=== PATIENT | female | born 1940 | race Caucasian/White ===

== ENCOUNTER → 2020-09-02 09:09 | Outpatient (BNVA) | payer MEDICARE, SELFPAY | PROVIDERS: PCP Internal Medicine; Referring Provider Internal Medicine; Visit Provider Surgery Vascular Surgery | DX: I83.12 Varicose veins of left lower extremity with inflammation (principal) | CPT/HCPCS: 36482 ==

== ENCOUNTER 2020-10-27 08:20 | Outpatient (REF) | payer MEDICARE, SELFPAY | END 2020-10-27 08:21 | disposition home or self-care (01) | LOC: HO.LAB 08:20 | PROVIDERS: PCP Internal Medicine; Visit Provider Internal Medicine | DX: N39.0 Urinary tract infection, site not specified (principal) | CPT/HCPCS: 87086 ==

== ENCOUNTER 2020-11-22 15:57 | Outpatient (REF) | payer MEDICARE, SELFPAY | END 2020-11-22 15:58 | disposition home or self-care (01) | LOC: HO.LAB 15:57 | PROVIDERS: Visit Provider Internal Medicine | DX: Z20.828 Contact with and (suspected) exposure to other viral communicable diseases (principal) | CPT/HCPCS: 36415; C9803; U0003 ==

== ENCOUNTER 2021-01-27 08:20 | Emergency (ER) | payer MEDICARE, SELFPAY ==
[2021-01-27] VITALS (15 sets, daily range): BP systolic 78–122; BP diastolic 38–68; PULSE 72–888; RESP 14–20; TEMP 37–37.7; O2SAT 95–98; BMI 33.3
--- NOTE | ~2021-01-27 | CT_ITS ---
EXAMINATION: CT BRAIN WITHOUT CONTRAST. CHEST X-RAY. CLINICAL INFORMATION: Headache. Cough. COMPARISON: CT brain 01/21/2020 TECHNIQUE: 5 mm thin axial and reformatted 2 mm thin sagittal and coronal images of brain were obtained. DLP 606. Chest one view. FINDINGS: Brain: There is no acute intra-axial, extra-axial bleed, masses or collection seen. There is no acute infarction in evolution. There is 5 mm hypodensity in the left anterior limb left internal capsule likely a small lacunar infarction. The lateral ventricles are symmetrical but mildly prominent. There is mild periarticular hypodensity in both cerebral hemispheres without mass effect. There is mild dolichoectasia of the basilar artery Bone windows reveal no calvarial abnormality. There is no scalp soft tissue abnormality. Bilateral paranasal sinuses and mastoid air cells are well-aerated. Chest: The lungs are well-expanded and clear acute process. The heart size and pulmonary vascularity is normal. No gross bony abnormality seen. CT/CT head/brain wo con IMPRESSION: No acute intracranial process seen. Small lacunar infarct left internal capsule. Mild cerebral volume loss with chronic small vessel microangiopathy Unremarkable chest exam.
--- NOTE | 2021-01-27 09:05 | PC.NURSE ---
pt brought in by ems from assisted living facility with c/o headache, lightheadedness, n/v, and body chills. pt is alert and oriented x3, lung sounds clear bilaterally in all hayes, heart sounds and rate normal, bowel sounds hypoactive x4. pt states that she started developing a headache in the back of her head last night around 1130 which progressed to chills and generalized body aches. pt also states she took her temperature at 3am and it was 101. pt current temp is 99.8. pt stated she always has a low-grade headache in the back of her head which she states may be related to a series of mini-stroked she had in the past, however this time around the headache pain was worse and radiating to the front of her head. current pain level is 9/10. pt changed into hospital gown. no evidence of skin breakdown anywhere on body. skin is pink warm and dry. md at bedside during assessment. pt aware of plan of care
--- NOTE | 2021-01-27 09:16 | PC.NURSE ---
daughter Kusum Matos called to get an update on Yoselin. Yoselin gave permission for this nurse to update her. Kusum was told why Yoselin was brought in and current plan of care. Ksuum has no other questions or concerns at this time.
--- NOTE | 2021-01-27 09:21 | ED.HA ---
HPI - Headache General Chief Complaint: Headache Stated Complaint: n/v Time Seen by Provider: 01/27/21 08:48 History of Present Illness HPI Narrative: Patient is a 80-year-old female presents today with having headaches. The headache is in the front and back of her head. Associated with nausea. No coughing or congestion or upper respiratory symptoms. No diaphoresis. No pain on urination. No frequency. No chest pain. No neck pain. No focal weakness. Patient from home. History of TIAs in the past. Related Data Previous Rx's Medication Instructions Recorded sulfamethoxazole 800 1 tab PO BID #10 tab 09/09/20 mg-trimethoprim 160 mg tablet sulfamethoxazole 800 1 tab PO BID #10 tab 09/15/20 mg-trimethoprim 160 mg tablet naproxen 500 mg tablet 500 mg PO Q12H PRN #60 tab 12/28/20 tizanidine 2 mg tablet 2 mg PO BEDTIME #90 tab 12/28/20 insulin glargine 100 unit/mL (3 12 unit SUBCUT QAM #15 ml 01/19/21 mL) subcutaneous pen Allergies Allergy/AdvReac Type Severity Reaction Status Date / Time levofloxacin [From LEVAQUIN] Allergy Intermediate RASH Verified 08/26/20 15:05 eszopiclone [From LUNESTA] Allergy Mild HALLUCINATI Verified 09/09/20 06:36 ONS zolpidem [Ambien] Allergy Unknown sleep Verified 09/09/20 06:36 walking meperidine [Meperidine] AdvReac Intermediate hallucinati Unverified 08/04/20 14:33 ons pregabalin [From LYRICA] AdvReac Unknown AGITATION Unverified 08/04/20 14:33 trazodone [TRAZODONE] AdvReac Unknown AGITATION Unverified 08/04/20 14:33 Review of Systems Review of Systems: Constitutional: No Weight loss, positive aches, No Chills, No Night Sweats, No Fatigue, No Malaise ENT/Mouth: No Hearing loss, No Ear Pain, No Nasal Congestion, No Sinus Pain, No Hoarseness, No sore throat, No Rhinorrhea, No Swallowing Difficulty Eyes: No Eye Pain, No Swelling, No Redness, No Foreign Body, No Discharge, No Vision Changes Cardiovascular: No Chest Pain, No SOB, No Dyspnea on Exertion, No Orthopnea, No Edema, No Palpitations Respiratory: No Cough, No Sputum, No Wheezing, No Smoke Exposure, No Dyspnea Gastrointestinal: No Nausea, No Vomiting, No Diarrhea, No Constipation, No abdominal Pain, No Hematochezia, No Melena Genitourinary: no irregular bleeding, No Dysuria, No Urinary Frequency, No Hematuria, No Urinary Incontinence, No Urgency, No Flank Pain, No Urinary Flow Changes, No Hesitancy Musculoskeletal: No joint pain, No Myalgias, No Joint Swelling Skin: No Skin Lesions, No rash Neuro: No Weakness, No Numbness, No Paresthesias, No Loss of Consciousness, No Dizziness, positive Headache Psych: No Anxiety/Panic, No Depression, No SI/HI/AH/VH, No Social Issues, Heme/Lymph: No Bruising, No Bleeding,No Lymphadenopathy Endocrine: No Polyuria, No Polydipsia, No Temperature Intolerance Yes all other systems are reviewed and are negative [facility] Past Medical History Medical History (Updated 01/27/21 @ 12:03 by Morenita Cabrera MD) Congestive heart failure Pneumonia Pulmonary embolism Type 2 diabetes mellitus with hyperglycemia Surgical History (Updated 09/14/20 @ 08:57 by Eve Cash MA) H/O prior ablation treatment History of cervical spinal surgery History of hysterectomy No pertinent past surgical history Family History Family History Father Diabetes CVD (cardiovascular disease) Mother No problems noted. Social History Social History (Updated 09/14/20 @ 08:48 by Eve Cash MA) Alcohol intake: never Smoking Status: Former smoker Smoked in Last 30 Days: No Use of substances other than those prescribed or required for medical reasons: No Advance Directives: Yes Advance Directives on File: Yes Advance Directives Date on File: 01/27/21 Physical Exam Vital Signs: Vital Signs: Last Vital Signs Temp 99.8 F 01/27/21 11:31 Pulse 91 01/27/21 11:31 Resp 20 01/27/21 11:31 BP 98/52 L 01/27/21 11:31 Pulse Ox 95 01/27/21 11:31 Body Mass Index 33.3 MDM - Headache MDM Narrative Medical decision making narrative: Patient neurologically intact. No focal weakness. Headache history. Claims this headache is worse. CT scan of the head was negative for any acute evidence of bleeding. Patient's symptoms started this morning. Approximately 6 hours. Patient's sed rate was 38. No evidence for temporal arteritis. Patient was given treatment for migraine headache including Compazine. Symptom improved dramatically. Headaches are gone now. Accord risk of meningitis low. Accord risk of bleeding low. Will discharge patient home. Currently in stable condition. Differential Diagnosis Differential diagnosis: Likely migraine, tension headache, subarachnoid hemorrhage, headache, meningitis, sinusitis and postconcussion syndrome Medical Records Attestation: I reviewed the patient's medical records. Lab Data Attestation: I reviewed the patient's lab results. Result diagrams: 01/27/21 09:46 01/27/21 09:46 Labs: Lab Results 01/27/21 01/27/21 01/27/21 Range/Units 09:46 09:46 09:46 WBC 12.4 H (4.8-10.8) X10*3/uL RBC 4.01 L (4.20-5.50) X10*6/uL Hgb 10.9 L (12.0-16.0) g/dl Hct 34.7 L (37-47) % MCV 86.5 (80-98) fL MCH 27.2 (27.0-33.0) pg MCHC 31.4 (31.0-35.0) g/dl RDW 14.6 (11.0-16.0) % Plt Count 237 (160-400) X10*3/uL MPV 9.7 (9.4-12.3) fL Immature Gran % (Auto) 0.5 H (0.0-0.4) % Neut % (Auto) 94.4 H (45-73) % Lymph % (Auto) 3.3 L (20-40) % Da[place]hin % (Auto) 1.5 L (2-11) % Eos % (Auto) 0.1 (0-4) % Baso % (Auto) 0.2 (0-2) % Lymph # (Auto) 0.4 L (1.2-4.9) X10*3/uL [place]hin # (Auto) 0.2 (0.1-1.2) X10*3/uL Eos # (Auto) 0.0 (0.0-0.4) X10*3/uL Baso # (Auto) 0.0 (0.0-0.2) X10*3/uL Abs Immat Gran (auto) 0.06 H (0.00-0.03) X10*3/uL Absolute Neuts (auto) 11.7 H (2.0-8.3) X10*3/uL Absolute Nucleated RBC 0.000 (0.0-0.012) X10*3/uL Nucleated RBC % (auto) 0.0 (0.0-0.2) /100WBC Smear Tech's Comments Not Reportable ESR 38 H (0-20) MM/HR PT 13.7 H (10.8-13.0) SEC INR 1.2 H (0.9-1.1) Sodium (135-145) mmol/L Potassium (3.3-5.1) mmol/L Chloride (96-108) mmol/L Carbon Dioxide (22-29) mmol/L Anion Gap (12-20) BUN (9-16) mg/dL Creatinine (0.5-1.4) mg/dL Estim Creat Clear Calc Estimated GFR Random Glucose (60-115) mg/dL Calcium (8.4-10.2) mg/dL C-Reactive Protein (< or = 0.50) mg/dL Coronavirus (PCR) (Negative) Influenza Type A (PCR) (Negative) Influenza Type B (PCR) (Negative) RSV RNA Qual (PCR) (Negative) 01/27/21 01/27/21 Range/Units 09:46 09:46 WBC (4.8-10.8) X10*3/uL RBC (4.20-5.50) X10*6/uL Hgb (12.0-16.0) g/dl Hct (37-47) % MCV (80-98) fL MCH (27.0-33.0) pg MCHC (31.0-35.0) g/dl RDW (11.0-16.0) % Plt Count (160-400) X10*3/uL MPV (9.4-12.3) fL Immature Gran % (Auto) (0.0-0.4) % Neut % (Auto) (45-73) % Lymph % (Auto) (20-40) % Dauphin % (Auto) (2-11) % Eos % (Auto) (0-4) % Baso % (Auto) (0-2) % Lymph # (Auto) (1.2-4.9) X10*3/uL [place]hin # (Auto) (0.1-1.2) X10*3/uL Eos # (Auto) (0.0-0.4) X10*3/uL Baso # (Auto) (0.0-0.2) X10*3/uL Abs Immat Gran (auto) (0.00-0.03) X10*3/uL Absolute Neuts (auto) (2.0-8.3) X10*3/uL Absolute Nucleated RBC (0.0-0.012) X10*3/uL Nucleated RBC % (auto) (0.0-0.2) /100WBC Smear Tech's Comments ESR (0-20) MM/HR PT (10.8-13.0) SEC INR (0.9-1.1) Sodium 139 (135-145) mmol/L Potassium 4.3 (3.3-5.1) mmol/L Chloride 104 (96-108) mmol/L Carbon Dioxide 27 (22-29) mmol/L Anion Gap 12 (12-20) BUN 19 H (9-16) mg/dL Creatinine 1.10 (0.5-1.4) mg/dL Estim Creat Clear Calc 34.9 Estimated GFR 48 Random Glucose 140 H (60-115) mg/dL Calcium 8.5 (8.4-10.2) mg/dL C-Reactive Protein 2.09 H (< or = 0.50) mg/dL Coronavirus (PCR) NEGATIVE (Negative) Influenza Type A (PCR) NEGATIVE (Negative) Influenza Type B (PCR) NEGATIVE (Negative) RSV RNA Qual (PCR) NEGATIVE (Negative) Discharge Plan Discharge Clinical Impression: Headache Patient Disposition: Home, Self-Care Instructions: Acute Headache (ED) Prescriptions: No Action sulfamethoxazole-trimethoprim [Bactrim DS] 800-160 mg tablet 1 tab PO BID Qty: 10 RF: 0 sulfamethoxazole-trimethoprim [Bactrim DS] 800-160 mg tablet 1 tab PO BID Qty: 10 RF: 0 naproxen 500 mg tablet 500 mg PO Q12H PRN (Reason: pain) Qty: 60 RF: 8 tizanidine 2 mg tablet 2 mg PO BEDTIME Qty: 90 RF: 8 Lantus Solostar U-100 Insulin 100 unit/mL (3 mL) insulin pen 12 unit subcut QAM Qty: 15 RF: 8 Referrals: Jin Arshad MD [Primary Care Provider] - 2 days
[2021-01-27 10:00] LABS: INTERNATIONAL NORM RATIO 1.2 (0.9-1.1); Prothrombin Time 13.7 SEC (10.8-13.0)
[2021-01-27 10:03] LABS: Basophils Percent Auto 0.2 % (0-2); Eosinophils Percent Auto 0.1 % (0-4); Hematocrit 34.7 % (37-47); Hemoglobin 10.9 g/dl (12.0-16.0); Imm Gran Abs Auto 0.06 X10*3/uL (0.00-0.03); Imm Gran Pct Auto 0.5 % (0.0-0.4); Lymphocytes Absolute Auto 0.4 X10*3/uL (1.2-4.9); Lymphocytes Percent Auto 3.3 % (20-40); MANUAL DIFF FLAG SCAN; Mean Corpuscular HGB Conc 31.4 g/dl (31.0-35.0); Mean Corpuscular Hemoglobin 27.2 pg (27.0-33.0); Mean Corpuscular Volume 86.5 fL (80-98); Mean Platelet Volume 9.7 fL (9.4-12.3); Monocytes Absolute Auto 0.2 X10*3/uL (0.1-1.2); Monocytes Percent Auto 1.5 % (2-11); Neutrophils Absolute Auto 11.7 X10*3/uL (2.0-8.3); Neutrophils Percent Auto 94.4 % (45-73); Platelet Count 237 X10*3/uL (160-400); Red Blood Count 4.01 X10*6/uL (4.20-5.50); Red Cell Distribution Width 14.6 % (11.0-16.0); SCAN SMEAR FLAG 1; White Blood Count 12.4 X10*3/uL (4.8-10.8)
[2021-01-27] MEDS: ondansetron HCL 4 MG/2 ML VIAL IVPUSH (10:15)
[2021-01-27] MEDS: Acetaminophen 325 MG TABLET 650 MG PO (10:16)
[2021-01-27] MEDS: diphenhydrAMINE HCL 50 MG/ML VIAL 25 MG IVPUSH (10:17)
[2021-01-27] MEDS: Prochlorperazine Edisylate 10 MG/2 ML VIAL IVPUSH (10:20)
[2021-01-27 10:34] LABS: Anion Gap 12 (12-20); Blood Urea Nitrogen 19 mg/dL (9-16); C Reactive Protein 2.09 mg/dL (< or = 0.50); Calcium 8.5 mg/dL (8.4-10.2); Carbon Dioxide 27 mmol/L (22-29); Chloride 104 mmol/L (96-108); Creatinine Clr Calc Pharmacy 34.9; Estimated Glomerular Filt Rate 48; Glucose Random 140 mg/dL (60-115); Potassium 4.3 mmol/L (3.3-5.1); Sodium 139 mmol/L (135-145)
[2021-01-27 10:38] LABS: Influenza A PCR NEGATIVE (Negative); Influenza B PCR NEGATIVE (Negative); Resp Syncy Virus RNA Qual PCR NEGATIVE (Negative); SARS COV2 PCR INHOUSE NEGATIVE (Negative)
[2021-01-27 10:43] LABS: Erythrocyte Sedimentation Rate 38 MM/HR (0-20)
--- NOTE | 2021-01-27 11:38 | PC.NURSE ---
pt's daughter mukesh ([phone]) called [facility] [place] and was updated on pt's status.
--- NOTE | 2021-01-27 11:45 | PC.NURSE ---
nasal cannula oxygen discontinued, pt o2 sat on room air is 95%. pt needs to be reminded to take deep breaths to keep 02 sat above 94%. md matos
--- NOTE | 2021-01-27 11:53 | PC.NURSE ---
pt tolerated PO challenge, was able to keep water down without vomiting. pt denies feeling nauseous at this time. this nurse assisted pt to the bathroom using a walker. gait is steady, pt denies feeling dizzy when ambulating. pt currently back in bed resting comfortably connected to heart monitor and on 1L o2 nasal cannula. 02 sat 95% on 1L nasal cannula. md aware. pt has no questions or concerns at this time. call carreon in reach.
[2021-01-27 12:07] LABS: Glucose Urine UA NEG (NEG); Leukocyte Esterase Urine TRACE (NEG); Nitrite Urine POS (NEG); PH 6.5 (5.0-8.0); Specific Gravity - Urine 1.015 (1.005-1.025); UACC Culture Trigger YES; Urine Blood 1+ (NEG); Urine Ketones NEG (NEG); Urine Protein NEG (NEG-TRACE)
[2021-01-27 12:10] LABS: Appearance Urine HAZY; Color Urine YELLOW
[2021-01-27 12:18] LABS: Bacteria Urine 3+ /LPF; Squamous Epithelial Cell Urine TRACE /LPF
[2021-01-27] MEDS: 0.9 % Sodium Chloride 500 ML IV ×2 (12:30→13:40)
[2021-01-27 12:37] LABS: Glucose, Whole Blood 154 mg/dL (60-115)
--- NOTE | 2021-01-27 12:42 | PC.NURSE ---
pts blood pressure was 99/44 on left arm in semi fowlers position, bp retaken and was 87/45 on right arm. md notified, ordered 500ml bolus NS to infuse via gravity. pt verbal response and eye contact appropriate, pt able to move upper and lower extremities without pain or limitations. denies dizziness. lung sounds clear bilaterally in all hayes. pt complained of feeling weak and mentioned she has type 2 diabetes. pt said she didn't eat today because she hasn't been feeling well. poc taken was 157. pt given orange juice and tuna sandwich. 500ml NS bolus is infusing. md aware.
--- NOTE | 2021-01-27 13:15 | PC.NURSE ---
pt ate 1/2 of tuna sandwich and some of diet abhishek fatou.
--- NOTE | 2021-01-27 14:25 | PC.NURSE ---
pt bp 94/46 in trendelenburg positions, bed flattened and bp reassessed and was 97/47. patient remains asymptomatic, denies dizziness, headache or SOB. skin pink warm and dry. pt eye contact and verbal response appropriate. pt able to speak in full sentences. pt remains alert and oriented x3. aware
== END 2021-01-27 16:26 | disposition home or self-care (01) ==
PROVIDERS: Emergency Provider Emergency Medicine Emergency Medical Services; PCP Internal Medicine
DX: R51.9 Headache, unspecified (principal); N39.0 Urinary tract infection, site not specified; R50.9 Fever, unspecified; E11.9 Type 2 diabetes mellitus without complications; I50.9 Heart failure, unspecified; Z86.711 Personal history of pulmonary embolism; Z87.891 Personal history of nicotine dependence; Z79.4 Long term (current) use of insulin
CPT/HCPCS: 0241U; 36415; 70450; 71045; 80048; 81001; 81003; 82947; 85025; 85610; 85652; 86140; 87086; 87088; 87186; 96361; 96374; 96375; 99284; 99285; J1200; J2405

== ENCOUNTER 2021-09-21 07:46 | Outpatient (REF) | payer MEDICARE, SELFPAY ==
--- NOTE | ~2021-09-21 | MR_ITS ---
EXAMINATION: MR head/brain wo con, MR angio head wo con CLINICAL INFORMATION: Reason for Exam DIZZINESS, STROKE, MICROVASCULAR DZ self-reported possible stroke 10 days ago. COMPARISON: CT head 01/27/2021, 01/21/2020, MRI brain 01/02/2020. TECHNIQUE: Routine unenhanced MRI of the brain; routine unenhanced 3-D [id number] MR angiography of the head with multiple 3-D reformatted images processed on the technologist workstation under concurrent supervision. Stenoses are made with reference to the NASCET criteria unless otherwise specified. FINDINGS: Diffusion-weighted images demonstrate punctate (less than 3 mm) foci of elevated signal intensity suspicious for acute infarcts in the following regions: 1. Parasagittal left inferior cerebellar hemisphere. 2. Right occipital cortex (series 4 image 19). 3. Overlying punctate focus posterior limb of the right internal capsule (series 4 image 18). The most conspicuous of the above lesions is present in the right occipital cortex. This focus demonstrates probable decreased apparent diffusion coefficients on the ADC map. The remaining lesions are too small to specifically characterize on ADC maps. No intracranial hemorrhage or tumors are noted. Nearly confluent patchy T2 hyperintensities are present in the ventral veto. Cystic encephalomalacia is present in the left and right thalami consistent with chronic lacunar infarcts. Cystic encephalomalacia is noted in the left and right inferior cerebellar hemispheres. Nearly confluent periventricular white matter patchy T2 hyperintensities having the appearance of chronic small vessel ischemic changes are noted. Mild/moderate diffuse commensurate prominence of ventricles and sulci is visualized. The craniocervical junction cerebellar tonsils are normal in appearance. Partial visualization is made of artifact likely related to the anterior plate and screw fixation at the levels of C5 or C5 with the C5 vertebral body only partially included within the image [id number] on sagittal T1-weighted images. Diffuse ectasia of the major intracranial arteries is noted and is suspicious for the sequela of chronic hypertension. Bilateral ocular lens extractions are noted. MR angiography head: No large vessel intracranial occlusions are noted. Diffuse ectasia of the major intracranial arteries is identified. Anterior communicating artery is noted. Intradural segments of the vertebral arteries are partially excluded from the image [id number]. Multiple 3-D MIPS segmented angiographic images confirm findings made upon review of the initial axial image data set. MR/MR head/brain wo con IMPRESSION: Unenhanced MRI of the brain: -Acute punctate cortical infarct within the right occipital lobe and borderline findings suspicious for punctate (less than 3 mm) acute infarcts within the posterior limb of the right internal capsule and inferior left cerebellar hemisphere. No intracranial hemorrhage. 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 Unenhanced MR angiography of the head: -No large vessel intracranial occlusions. -Diffuse ectasia of the major intracranial arteries suspicious for the sequela of long-standing hypertension. This result with regards to the acute infarcts was discussed with Nico Victoria MD by telephone at 09/23/2021 1:00 PM and it was ascertained that the content and urgency of the report was understood at the time of direct communication.
--- NOTE | ~2021-09-21 | MR_ITS ---
EXAMINATION: MR head/brain wo con, MR angio head wo con CLINICAL INFORMATION: Reason for Exam DIZZINESS, STROKE, MICROVASCULAR DZ self-reported possible stroke 10 days ago. COMPARISON: CT head 01/27/2021, 01/21/2020, MRI brain 01/02/2020. TECHNIQUE: Routine unenhanced MRI of the brain; routine unenhanced 3-D [id number] MR angiography of the head with multiple 3-D reformatted images processed on the technologist workstation under concurrent supervision. Stenoses are made with reference to the NASCET criteria unless otherwise specified. FINDINGS: Diffusion-weighted images demonstrate punctate (less than 3 mm) foci of elevated signal intensity suspicious for acute infarcts in the following regions: 1. Parasagittal left inferior cerebellar hemisphere. 2. Right occipital cortex (series 4 image 19). 3. Overlying punctate focus posterior limb of the right internal capsule (series 4 image 18). The most conspicuous of the above lesions is present in the right occipital cortex. This focus demonstrates probable decreased apparent diffusion coefficients on the ADC map. The remaining lesions are too small to specifically characterize on ADC maps. No intracranial hemorrhage or tumors are noted. Nearly confluent patchy T2 hyperintensities are present in the ventral veto. Cystic encephalomalacia is present in the left and right thalami consistent with chronic lacunar infarcts. Cystic encephalomalacia is noted in the left and right inferior cerebellar hemispheres. Nearly confluent periventricular white matter patchy T2 hyperintensities having the appearance of chronic small vessel ischemic changes are noted. Mild/moderate diffuse commensurate prominence of ventricles and sulci is visualized. The craniocervical junction cerebellar tonsils are normal in appearance. Partial visualization is made of artifact likely related to the anterior plate and screw fixation at the levels of C5 or C5 with the C5 vertebral body only partially included within the image [id number] on sagittal T1-weighted images. Diffuse ectasia of the major intracranial arteries is noted and is suspicious for the sequela of chronic hypertension. Bilateral ocular lens extractions are noted. MR angiography head: No large vessel intracranial occlusions are noted. Diffuse ectasia of the major intracranial arteries is identified. Anterior communicating artery is noted. Intradural segments of the vertebral arteries are partially excluded from the image [id number]. Multiple 3-D MIPS segmented angiographic images confirm findings made upon review of the initial axial image data set. MR/MR angio head wo con IMPRESSION: Unenhanced MRI of the brain: -Acute punctate cortical infarct within the right occipital lobe and borderline findings suspicious for punctate (less than 3 mm) acute infarcts within the posterior limb of the right internal capsule and inferior left cerebellar hemisphere. No intracranial hemorrhage. 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 Unenhanced MR angiography of the head: -No large vessel intracranial occlusions. -Diffuse ectasia of the major intracranial arteries suspicious for the sequela of long-standing hypertension. This result with regards to the acute infarcts was discussed with Nico Victoria MD by telephone at 09/23/2021 1:00 PM and it was ascertained that the content and urgency of the report was understood at the time of direct communication.
[2021-09-21 08:09] LABS: MANUAL DIFF FLAG NO
[2021-09-21 08:43] LABS: Basophils Absolute Auto 0.1 X10*3/uL (0.0-0.2); Basophils Percent Auto 0.9 % (0-2); Eosinophils Absolute Auto 0.2 X10*3/uL (0.0-0.4); Eosinophils Percent Auto 2.4 % (0-4); Hematocrit 36.2 % (37.0-47.0); Imm Gran Abs Auto 0.07 X10*3/uL (0.00-0.03); Imm Gran Pct Auto 0.9 % (0.0-0.4); Lymphocytes Absolute Auto 2.5 X10*3/uL (1.2-4.9); Lymphocytes Percent Auto 34.3 % (20-40); Mean Corpuscular HGB Conc 30.4 g/dl (31.0-35.0); Mean Corpuscular Hemoglobin 27.3 pg (27.0-33.0); Mean Corpuscular Volume 89.8 fL (80.0-98.0); Mean Platelet Volume 9.9 fL (9.4-12.3); Monocytes Absolute Auto 0.8 X10*3/uL (0.1-1.2); Monocytes Percent Auto 10.5 % (2-11); Neutrophils Absolute Auto 3.76 x10*3/uL (2.0-8.3); Platelet Count 340 X10*3/uL (160-400); Red Blood Count 4.03 X10*6/uL (4.20-5.50); Red Cell Distribution Width 16.4 % (11.0-16.0); White Blood Count 7.4 X10*3/uL (4.8-10.8)
[2021-09-21 09:06] LABS: Estimated Average Glucose 163 mg/dL; Hemoglobin A1c % 7.3 %
[2021-09-21 09:07] LABS: Alanine Aminotransferase 13 U/L (0-31); Albumin Level 4.3 g/dL (3.5-5.0); Alkaline Phosphatase 85 U/L (39-117); Anion Gap 12 (12-20); Aspartate Amino Transferase 18 U/L (5-31); Bilirubin Total 0.7 mg/dL (0.0-1.0); Blood Urea Nitrogen 24 mg/dL (9-16); Carbon Dioxide 26 mmol/L (22-29); Chloride 108 mmol/L (96-108); Cholesterol 223 mg/dL; Estimated Glomerular Filt Rate 42; Glucose Fasting 129 mg/dL (60-99); HDL Cholesterol 53 mg/dL; LDL Cholesterol Calculated 154 mg/dl; Potassium 5.2 mmol/L (3.3-5.1); Sodium 141 mmol/L (135-145); Total Protein 7.3 g/dL (6.5-8.0); Triglycerides 81 mg/dL
[2021-09-21 09:33] LABS: Thyroid Stimulating Hormone 6.16 uIU/mL (0.32-4.0)
[2021-09-21 09:52] LABS: Creatinine Urine 66.81 mg/dL; Microalbum/Creatinine Ratio Ur 61.3 ug/mg cr
== END 2021-09-21 07:47 | disposition home or self-care (01) ==
LOC: HO.MRI 07:46
PROVIDERS: PCP Internal Medicine; Visit Provider Psychiatry & Neurology Neurology
DX: Z00.00 Encounter for general adult medical examination without abnormal findings (principal); R42 Dizziness and giddiness; E11.9 Type 2 diabetes mellitus without complications
CPT/HCPCS: 36415; 70544; 70551; 80053; 80061; 82043; 83036; 84443; 85025

== ENCOUNTER 2022-02-22 16:58 | Observation (INO) | payer OTHER, SELFPAY ==
--- NOTE | ~2022-02-22 | CT_ITS ---
EXAMINATION: CT ABDOMEN AND PELVIS WITHOUT CONTRAST CLINICAL INFORMATION: Right upper quadrant abdominal pain COMPARISON: CT scan abdomen pelvis 01/21/2020 TECHNIQUE: Multidetector volumetric imaging was performed from the superior aspect of the liver through the pubic symphysis. Sagittal and coronal reformatted images were obtained on the technologist's workstation. This CT examination was performed using dose optimization techniques as appropriate, variously including the following: *Automated exposure control *Adjustment of mA and/or kV according to patient size (this includes techniques or standardized protocols for targeted exams where dose is matched to indication/reason for exam; i.e. extremities or head) *Use of iterative reconstruction technique DLP: 580 mGy-cm FINDINGS: LUNG BASES: Lung bases normally aerated. Heart size prominent. Heavy vascular calcification of coronary arteries. No pericardial effusion. LIVER, GALLBLADDER, AND BILIARY TREE: The liver is normal in size, shape, and attenuation. No focal hepatic lesion or biliary ductal dilatation is present. Small calcified granuloma left lobe of liver. Status post cholecystectomy. No bile duct dilatation. PANCREAS: Unremarkable. SPLEEN: Unremarkable. ADRENAL GLANDS: Unremarkable. KIDNEYS AND URETERS: Mild cortical atrophy of kidneys bilateral. Lobulated contours due to lobation. Small calcification in the left upper pole renal hilum is a vascular calcification. Contrast opacifies the collecting system of the kidneys and the bladder. Patient received IV contrast for CAT scan of chest today. See separate report. There is no hydronephrosis. No filling defect within the collecting system of either kidney. BLADDER: Bladder is opacified with contrast. No filling defect. GASTROINTESTINAL TRACT: Status post gastric bypass surgery. No abnormally dilated bowel loop. Nonobstructive bowel pattern. No bowel wall thickening or edema. The appendix is not visualized. There is no edema in the mesentery. ABDOMINAL WALL: Small fluid collection in the midline upper abdomen anterior abdominal wall has only slightly regressed in size since prior study of 01/21/2020. Collection currently measures 5.2 x 1.5 x 4 cm. This measured 6.1 x 1.3 x [address] study 01/21/2020. No air in this collection. No surrounding edema. No evidence of an abscess therefore. This has a density measurement 14 Hounsfield units. Surgical clip at the lower right anterior abdominal wall. Small fat-containing umbilical hernia. Scarring lower anterior abdominal pelvic wall subcutaneous tissue. LYMPH NODES: No significant lymphadenopathy. VASCULAR: Atherosclerotic vascular calcifications throughout the abdomen and pelvis. There is no aneurysm of aorta. PELVIC VISCERA: Status post hysterectomy. No pelvic mass or inflammation. OSSEOUS STRUCTURES: Multilevel degenerative spondylosis spine. Grade 1 anterolisthesis of L4 on L5 due to facet joint disease. No spondylolysis. CT/CT abdomen pelvis wo con IMPRESSION: 1. No acute abnormality the abdomen or pelvis. 2. Status post Cholecystectomy. 3. Status post gastric bypass surgery. 4. Status post hysterectomy. Fleischner guidelines were followed.
--- NOTE | ~2022-02-22 | CT_ITS ---
EXAMINATION: CT ANGIOGRAM OF THE CHEST WITH AND WITHOUT CONTRAST (CT PULMONARY ANGIOGRAM FOR PE) CLINICAL INFORMATION: Elevated d-dimer and shortness of breath. COMPARISON: CTA of the chest dated from 06/10/2020. TECHNIQUE: Prior to contrast administration, noncontrast localization images were obtained. Subsequently, multidetector volumetric imaging was performed from the thoracic inlet to below the diaphragms following the administration of 62 mL Omnipaque 350 intravenous contrast. No contrast reaction reported Sagittal, coronal, and MIP oblique sagittal reformatted images were obtained on the CT workstation, uploaded to PACS, and reviewed. This CT examination was performed using dose optimization techniques as appropriate, variously including the following: *Automated exposure control *Adjustment of mA and/or kV according to patient size (this includes techniques or standardized protocols for targeted exams where dose is matched to indication/reason for exam; i.e. extremities or head) *Use of iterative reconstruction technique Total exam dose-length product 338 mGy-cm FINDINGS: QUALITY OF STUDY/CONTRAST BOLUS: Suboptimal. PULMONARY ARTERIES: Evaluation of segmental branches is limited due to respiratory motion. No central pulmonary emboli. Redemonstration of enlarged pulmonary arteries, raising the possibility of pulmonary hypertension. THORACIC AORTA: Atherosclerotic disease. No aneurysm. LUNG: Low lung volumes with respiratory motion limiting assessment of parenchymal abnormalities and nodules. No focal airspace opacities. Mild diffuse bronchial wall thickening and subsegmental atelectasis. Layering mucous secretions in the trachea and main bronchi. PLEURA: No pleural effusion or pneumothorax. MEDIASTINUM: Cardiomegaly. No pericardial effusion. Extensive coronary calcifications. No lymphadenopathy by size criteria. No evidence of septal bowing or right heart strain. CHEST WALL/AXILLA: No axillary or internal mammary lymphadenopathy. OSSEOUS STRUCTURES: Anterior left-sided 3rd through 6th rib fractures, not identified on 06/10/2020. Also anterior right-sided 4th through 6th rib fractures, not identified on prior. Thoracic spondylosis. UPPER ABDOMEN: Calcified granulomas in the left hepatic lobe. Extensive vascular calcifications. Postsurgical changes in the stomach. Nonspecific slightly lobulated but water in attenuation collection in the anterior abdominal wall measuring 5.4 x 1.5 cm, new since 2019. No reflux of contrast into the hepatic veins to suggest elevated right heart pressures. CT/CT angio chest PE protocol IMPRESSION: 1. No central pulmonary emboli. Evaluation of segmental branches is limited due to motion. 2. Diffuse bronchial wall thickening suggesting the presence of small airways disease. Evaluation of the parenchyma and pulmonary nodules is overall limited due to respiratory motion. 3. Cardiomegaly and findings suggestive of pulmonary hypertension. 4. Age indeterminate bilateral anterior rib fractures as above. 5. Nonspecific water density lesion/fluid collection in the anterior upper abdomen. Correlate with physical examination and surgical history. VTE: indeterminate
--- NOTE | ~2022-02-22 | XR_ITS ---
EXAMINATION: XR RIBS, RIGHT CLINICAL INFORMATION: Evaluate for fracture. COMPARISON: Chest radiograph dated from 01/27/2021. TECHNIQUE: 3 views of the right ribs were obtained. FINDINGS: Stable prominence of the cardiomediastinal silhouette. Chronic interstitial thickening with streaky opacities in the lower lobes, likely representing subsegmental atelectasis or scarring. No focal consolidation, pleural effusion or pneumothorax. Redemonstration of a cervical instrumentation hardware. Possibly nondisplaced right-sided seventh and eighth rib fractures. XR/XR ribs RT min 3V w CXR1V IMPRESSION: Possibly nondisplaced right-sided seventh and eighth rib fractures. Correlate for point tenderness. Chronic interstitial thickening and bibasilar atelectasis/scarring. No acute cardiopulmonary findings.
[2022-02-22 17:23] VITALS: BP 188/87; PULSE 78; RESP 19; TEMP 36.6; O2SAT 98; BMI 25.5
[2022-02-22 18:32] LABS: Glucose, Whole Blood 47 mg/dL (60-115)
[2022-02-22 18:38] VITALS: BP 163/73; PULSE 75; RESP 16; TEMP 36.6; O2SAT 98
--- NOTE | 2022-02-22 18:50 | ECG_ITS ---
Test Reason : CHEST PAIN Blood Pressure : / mmHG Vent. Rate : 069 BPM Atrial Rate : 069 BPM P-R Int : 210 ms QRS Dur : 142 ms QT Int : 440 ms P-R-T Axes : 008 -38 120 degrees QTc Int : 471 ms Sinus rhythm with 1st degree A-V block Left axis deviation Left bundle branch block Abnormal ECG When compared with ECG of 10-JUN-2020 17:33, No significant change was found Referred By: Adri Sinclair Electronically Signed By:CHARO AGUILERA MD
--- NOTE | 2022-02-22 18:58 | ED.CHESTPAIN ---
HPI - Chest Pain General Chief Complaint: Chest Pain Stated Complaint: SOB, ? rib fracture Time Seen by Provider: 02/22/22 18:49 Source: patient Mode of arrival: ambulatory Limitations: no limitations History of Present Illness HPI narrative: This is a 82-year-old female past medical history significant for obesity, chf, pulmonary embolism in 2011 not on anticoagulation, diabetes, UTI, hypertension presenting to the the emergency department with complaints of pain to right side of ribs since saturday (X5 days). patient tells me that 1 of her friends gave her a hug and picked her up and she felt like her rib broke she heard a crack. Since then she has been experiencing severe 10/10 sharp pain. Pain is worse with inspiration, movement and palpation. The pain is worse underneath the right lower aspect of the breast. Patient tells me she feels like something is poking her. She also reports shortness of breath worse with movement better at rest. she also mentions she is having chest pain however she tells me she thinks this is from a rib being broken, this is happened to her multiple times in the past. Denies fevers, chills, nausea, vomiting, cough, diarrhea, abdominal pain, neck, recent fall or trauma. MD complaint: chest pain Pertinent past history: other (DM) Onset (ago): day(s) (5) Timing of current episode: constant Prior episodes: Yes Onset: other (after getting a hug ) Pain location: right chest Pain radiation: none Severity: severe Quality: sharp Relieving factors: nothing Exacerbating factors: exertion, inspiration, palpation and movement Treatment prior to arrival: none Related Data Previous Rx's Medication Instructions Recorded naproxen 500 mg tablet 500 mg PO Q12H PRN #60 tab 12/28/20 insulin glargine 100 unit/mL (3 12 unit (0.12 mL) SUBCUT QAM #15 ml 01/19/21 mL) subcutaneous pen (Lantus Solostar U-100 Insulin) duloxetine 20 mg capsule,delayed 20 mg PO BID #180 cap 06/29/21 release melatonin 5 mg tablet 5 mg PO BEDTIME #28 tab 06/29/21 ibuprofen 400 mg tablet 400 mg PO Q8H #90 tab 07/10/21 tizanidine 4 mg capsule 4 mg PO Q8H #90 cap 10/21/21 omeprazole 20 mg tablet,delayed 20 mg PO DAILY #90 tab 12/08/21 release Allergies Allergy/AdvReac Type Severity Reaction Status Date / Time levofloxacin [From LEVAQUIN] Allergy Intermediate RASH Verified 12/08/21 11:22 eszopiclone [From LUNESTA] Allergy Mild HALLUCINATI Verified 12/08/21 11:22 ONS zolpidem [Ambien] Allergy Unknown sleep Verified 12/08/21 11:22 walking meperidine [Meperidine] AdvReac Intermediate hallucinati Verified 12/08/21 11:22 ons pregabalin [From LYRICA] AdvReac Unknown AGITATION Verified 12/08/21 11:22 trazodone [TRAZODONE] AdvReac Unknown AGITATION Verified 12/08/21 11:22 Review of Systems Review of Systems: Constitutional : No Weight loss, No Fever, No Chills, No Fatigue, No Malaise ENT/Mouth : No sore throat, No Rhinorrhea Eyes: No Eye Pain, No Swelling, No Redness Cardiovascular : No Chest Pain, No SOB, No Dyspnea on Exertion, No Orthopnea, No Edema, No Palpitations Respiratory : No Cough, No Sputum, No Wheezing Gastrointestinal : No Nausea, No Vomiting, No Diarrhea, No Constipation, No abdominal Pain, No Hematochezia, No Melena Genitourinary : No Dysuria, No Urinary Frequency, No Hematuria, Musculoskeletal : No joint pain, No Myalgias, No Joint Swelling Skin : No Skin Lesions, No rash Neuro : No Weakness, No Numbness, No Dizziness, No Headache All other systems reviewed and are negative Yes all other systems are reviewed and are negative [facility] Past Medical History Attestation statement: The following information was validated with the patient. Source: old records reviewed and nursing notes reviewed Medical History (Updated 02/22/22 @ 23:06 by ROSHAN Chni) Congestive heart failure Obesity Pneumonia Pulmonary embolism Type 2 diabetes mellitus with hyperglycemia Type 2 diabetes mellitus with obesity Surgical History H/O prior ablation treatment History of cervical spinal surgery History of hysterectomy No pertinent past surgical history Family History Family History (Updated 12/08/21 @ 11:22 by Sheron Patel) Father Diabetes CVD (cardiovascular disease) Mother No problems noted. Social History Social History Housing: Apartment Alcohol intake: never Patient Tobacco Use Status: Never used Tobacco Tobacco use type: Cigarette e-Cigarette/Vaping Use: Never Used Second Hand Smoke Exposure: No Advance Directives: Yes Advance Directives on File: Yes Advance Directives Date on File: 01/27/21 service: No Current occupational status: retired Current occupational exposures/hazards: No Cognitive needs: No Hearing needs: No Vision needs: No Physical Exam Vital Signs: Vital Signs: Last Vital Signs Temp 98.5 F 02/23/22 00:13 Pulse 78 02/23/22 00:13 Resp 16 02/23/22 00:13 BP 155/70 H 02/23/22 00:13 Pulse Ox 95 02/23/22 00:13 BMI result Body Mass Index 25.5 VSS Appearance: Alert.? Oriented X3.? No acute distress.? Head: Normocephalic, atraumatic, no step-offs or deformities Eyes: Pupils equal, round and reactive to light.? ENT: Pharynx normal.? Neck: Normal inspection.? Neck supple.? CVS: Normal heart rate and rhythm.? Pulses normal.? Respiratory: No respiratory distress.? Breath sounds normal.? Abdomen: Soft and nontender.? Skin: Skin warm and dry.? Normal skin color.? Normal skin turgor.? Extremities: No lower extremity edema.? No calf ttp. 5/5 strength to bilateral upper and lower extremities Musculoskeletal: pain with palpation to right-sided ribs. No overlying skin changes. No evidence of flail chest. Back: No midline tenderness, no C-spine tenderness, full range of motion, no CVA tenderness bilaterally Neuro: Oriented X 3.? No motor deficit.? No sensory deficit. CN 2-12 intact Course Reevaluation(s) Reevaluation #1: CBC appears to be at patient's baseline. chemistry with LAWRENCE, slightly worse than her baseline. Patient's POC noted to be 47 initially she was given juice and sugar it went up to 77. Patient is a known type 2 diabetic. No other acute electrolyte abnormalities. Troponin 9.5 will repeat in 3 hours. BNP within normal limits unlikely CHF. Covid negative. X-ray of the ribs with a possible nondisplaced right-sided 7th and 8th rib fracture. Which correlates with point tenderness to the area. There are chronic interstitial thickening and changes noted to the area. Time: 19:54 Reevaluation #2: Initial troponin 9.2nd 12.3 unlikely that this is ACS. Patient not reporting chest pain at this time. Patient still reporting severe pain despite IV morphine and p.o. oxycodone. hot frame tender to palpation. This time patient will be admitted to the hospitalist team for pain control and observation secondary to shortness of breath and rib fractures will admit. Time: 00:35 MDM - Chest Pain MDM Narrative Medical decision making narrative: [birth year]49 82 yo f presents w/ right sided rib pain, cp and shortness of breath X5 days s/p getting a hug from a friend. Patient tells me it feels like she broke her rib PE Pain to palpation to Right-sided ribs, no overlying skin changes. Patient appears uncomfortable particularly with inspiration. Regular rate and rhythm. Abdomen soft nontender nondistended. Breath sounds clear unlikely that this is an pneumothorax, unlikely flail chest. Will rule out rib fractures. Plan at this time is to obtain basic labs as patient is reporting shortness of breath and chest pain will obtain D-dimer to rule out PE and troponin to rule out acute coronary syndrome. Will also obtain EKG. Medical Records Data Attestation: I reviewed the patient's medical records. Lab Data Attestation: I reviewed the patient's lab results. Result diagrams: 02/22/22 19:05 02/22/22 19:05 Labs: Lab Results 02/22/22 02/22/22 02/22/22 Range/Units 18:27 19:05 19:05 WBC 7.0 (4.8-10.8) X10*3/uL RBC 4.32 (4.20-5.50) X10*6/uL Hgb 11.6 L (12.0-16.0) g/dl Hct 38.2 (37.0-47.0) % MCV 88.4 (80.0-98.0) fL MCH 26.9 L (27.0-33.0) pg MCHC 30.4 L (31.0-35.0) g/dl RDW 15.0 (11.0-16.0) % Plt Count 285 (160-400) X10*3/uL MPV 9.9 (9.4-12.3) fL Immature Gran % (Auto) 0.4 (0.0-0.4) % Neut % (Auto) 71.3 (45-73) % Lymph % (Auto) 18.7 L (20-40) % [place] % (Auto) 7.9 (2-11) % Eos % (Auto) 1.4 (0-4) % Baso % (Auto) 0.3 (0-2) % Lymph # (Auto) 1.3 (1.2-4.9) X10*3/uL [place] # (Auto) 0.6 (0.1-1.2) X10*3/uL Eos # (Auto) 0.1 (0.0-0.4) X10*3/uL Baso # (Auto) 0.0 (0.0-0.2) X10*3/uL Abs Immat Gran (auto) 0.03 (0.00-0.03) X10*3/uL Absolute Neuts (auto) 5.0 (2.0-8.3) x10*3/uL Absolute Nucleated RBC 0.000 (0.0-0.012) X10*3/uL Nucleated RBC % (auto) 0.0 (0.0-0.2) /100WBC D-Dimer High Sensitivty 387 NG/ML Sodium (135-145) mmol/L Potassium (3.3-5.1) mmol/L Chloride (96-108) mmol/L Carbon Dioxide (22-29) mmol/L Anion Gap (12-20) BUN (9-16) mg/dL Creatinine (0.5-1.4) mg/dL Estim Creat Clear Calc Estimated GFR POC Glucose 47 L* (60-115) mg/dL Random Glucose (60-115) mg/dL Calcium (8.4-10.2) mg/dL Magnesium (1.6-2.6) mg/dL Total Bilirubin (0.0-1.0) mg/dL AST (5-31) U/L ALT (0-31) U/L Alkaline Phosphatase (39-117) U/L Troponin I High Sens (<3.5-17.0) ng/L B-Natriuretic Peptide (<100) pg/mL Total Protein (6.5-8.0) g/dL Albumin (3.5-5.0) g/dL COVID-19 (QUINTIN) (Negative) COVID-19 Clin Com 02/22/22 02/22/22 02/22/22 Range/Units 19:05 19:05 19:05 WBC (4.8-10.8) X10*3/uL RBC (4.20-5.50) X10*6/uL Hgb (12.0-16.0) g/dl Hct (37.0-47.0) % MCV (80.0-98.0) fL MCH (27.0-33.0) pg MCHC (31.0-35.0) g/dl RDW (11.0-16.0) % Plt Count (160-400) X10*3/uL MPV (9.4-12.3) fL Immature Gran % (Auto) (0.0-0.4) % Neut % (Auto) (45-73) % Lymph % (Auto) (20-40) % [place] % (Auto) (2-11) % Eos % (Auto) (0-4) % Baso % (Auto) (0-2) % Lymph # (Auto) (1.2-4.9) X10*3/uL [place] # (Auto) (0.1-1.2) X10*3/uL Eos # (Auto) (0.0-0.4) X10*3/uL Baso # (Auto) (0.0-0.2) X10*3/uL Abs Immat Gran (auto) (0.00-0.03) X10*3/uL Absolute Neuts (auto) (2.0-8.3) x10*3/uL Absolute Nucleated RBC (0.0-0.012) X10*3/uL Nucleated RBC % (auto) (0.0-0.2) /100WBC D-Dimer High Sensitivty NG/ML Sodium 141 (135-145) mmol/L Potassium 4.7 (3.3-5.1) mmol/L Chloride 108 (96-108) mmol/L Carbon Dioxide 21 L (22-29) mmol/L Anion Gap 17 (12-20) BUN 34 H (9-16) mg/dL Creatinine 1.45 H (0.5-1.4) mg/dL Estim Creat Clear Calc 32.0 Estimated GFR 35 POC Glucose (60-115) mg/dL Random Glucose 77 (60-115) mg/dL Calcium 9.0 (8.4-10.2) mg/dL Magnesium 2.5 (1.6-2.6) mg/dL Total Bilirubin 0.5 (0.0-1.0) mg/dL AST 26 D (5-31) U/L ALT 17 (0-31) U/L Alkaline Phosphatase 86 (39-117) U/L Troponin I High Sens 9.5 (<3.5-17.0) ng/L B-Natriuretic Peptide 88 (<100) pg/mL Total Protein 7.8 (6.5-8.0) g/dL Albumin 4.2 (3.5-5.0) g/dL COVID-19 (QUINTIN) Negative (Negative) COVID-19 Clin Com See Note 02/22/22 02/22/22 Range/Units 20:32 22:36 WBC (4.8-10.8) X10*3/uL RBC (4.20-5.50) X10*6/uL Hgb (12.0-16.0) g/dl Hct (37.0-47.0) % MCV (80.0-98.0) fL MCH (27.0-33.0) pg MCHC (31.0-35.0) g/dl RDW (11.0-16.0) % Plt Count (160-400) X10*3/uL MPV (9.4-12.3) fL Immature Gran % (Auto) (0.0-0.4) % Neut % (Auto) (45-73) % Lymph % (Auto) (20-40) % [place] % (Auto) (2-11) % Eos % (Auto) (0-4) % Baso % (Auto) (0-2) % Lymph # (Auto) (1.2-4.9) X10*3/uL [place] # (Auto) (0.1-1.2) X10*3/uL Eos # (Auto) (0.0-0.4) X10*3/uL Baso # (Auto) (0.0-0.2) X10*3/uL Abs Immat Gran (auto) (0.00-0.03) X10*3/uL Absolute Neuts (auto) (2.0-8.3) x10*3/uL Absolute Nucleated RBC (0.0-0.012) X10*3/uL Nucleated RBC % (auto) (0.0-0.2) /100WBC D-Dimer High Sensitivty NG/ML Sodium (135-145) mmol/L Potassium (3.3-5.1) mmol/L Chloride (96-108) mmol/L Carbon Dioxide (22-29) mmol/L Anion Gap (12-20) BUN (9-16) mg/dL Creatinine (0.5-1.4) mg/dL Estim Creat Clear Calc Estimated GFR POC Glucose 123 H (60-115) mg/dL Random Glucose (60-115) mg/dL Calcium (8.4-10.2) mg/dL Magnesium (1.6-2.6) mg/dL Total Bilirubin (0.0-1.0) mg/dL AST (5-31) U/L ALT (0-31) U/L Alkaline Phosphatase (39-117) U/L Troponin I High Sens 12.3 (<3.5-17.0) ng/L B-Natriuretic Peptide (<100) pg/mL Total Protein (6.5-8.0) g/dL Albumin (3.5-5.0) g/dL COVID-19 (QUINTIN) (Negative) COVID-19 Clin Com Critical Care Time Critical Care Time Critical Care Time: No Discharge Plan Discharge Clinical Impression: Fracture, ribs, Shortness of breath, Chest pain not due to acute coronary syndrome Patient Disposition: Admitted As Inpatient
[2022-02-22] MEDS: 0.9 % Sodium Chloride 1,000 ML 999 ML IV (19:12)
[2022-02-22 19:13] LABS: MANUAL DIFF FLAG NO
[2022-02-22 19:17] LABS: Basophils Percent Auto 0.3 % (0-2); Eosinophils Absolute Auto 0.1 X10*3/uL (0.0-0.4); Eosinophils Percent Auto 1.4 % (0-4); Hematocrit 38.2 % (37.0-47.0); Hemoglobin 11.6 g/dl (12.0-16.0); Imm Gran Abs Auto 0.03 X10*3/uL (0.00-0.03); Imm Gran Pct Auto 0.4 % (0.0-0.4); Lymphocytes Absolute Auto 1.3 X10*3/uL (1.2-4.9); Lymphocytes Percent Auto 18.7 % (20-40); Mean Corpuscular HGB Conc 30.4 g/dl (31.0-35.0); Mean Corpuscular Hemoglobin 26.9 pg (27.0-33.0); Mean Corpuscular Volume 88.4 fL (80.0-98.0); Mean Platelet Volume 9.9 fL (9.4-12.3); Monocytes Absolute Auto 0.6 X10*3/uL (0.1-1.2); Monocytes Percent Auto 7.9 % (2-11); Neutrophils Percent Auto 71.3 % (45-73); Platelet Count 285 X10*3/uL (160-400); Red Blood Count 4.32 X10*6/uL (4.20-5.50)
[2022-02-22 19:24] LABS: D Dimer High Sensitivity 387 NG/ML
[2022-02-22 19:29] LABS: COVID-19 Test Negative (Negative)
[2022-02-22 19:34] LABS: Alanine Aminotransferase 17 U/L (0-31); Albumin Level 4.2 g/dL (3.5-5.0); Alkaline Phosphatase 86 U/L (39-117); Anion Gap 17 (12-20); Aspartate Amino Transferase 26 U/L (5-31); Bilirubin Total 0.5 mg/dL (0.0-1.0); Blood Urea Nitrogen 34 mg/dL (9-16); Carbon Dioxide 21 mmol/L (22-29); Chloride 108 mmol/L (96-108); Estimated Glomerular Filt Rate 35; Glucose Random 77 mg/dL (60-115); Magnesium 2.5 mg/dL (1.6-2.6); Potassium 4.7 mmol/L (3.3-5.1); Sodium 141 mmol/L (135-145); Total Protein 7.8 g/dL (6.5-8.0)
[2022-02-22 19:37] LABS: B Type Natriuretic Peptide 88 pg/mL (<100); Troponin-I High Sensitivity 9.5 ng/L (<3.5-17.0)
[2022-02-22] MEDS: iohexoL 350 MG/ML 100 ML INFUS..BTL IV (20:17)
[2022-02-22 20:37] LABS: Glucose, Whole Blood 123 mg/dL (60-115)
[2022-02-22 20:40] VITALS: BP 173/75; PULSE 76; RESP 20; TEMP 36.6; O2SAT 97
[2022-02-22] MEDS: Morphine Sulfate 4 MG/ML CARTRIDGE IVPUSH (21:32)
[2022-02-22 22:38] VITALS: BP 181/69; PULSE 75; RESP 16; O2SAT 97
[2022-02-22 23:00] LABS: Troponin-I High Sensitivity 12.3 ng/L (<3.5-17.0)
[2022-02-22] MEDS: Lidocaine 4 % Patch ADH..PATCH 1 PATCH TRANSDERMA (23:44)
[2022-02-22] MEDS: oxyCODONE HCl Immed Release 5 MG TABLET PO (23:45)
[2022-02-23 00:13] VITALS: BP 155/70; PULSE 78; RESP 16; TEMP 36.9; O2SAT 95
--- NOTE | 2022-02-23 01:23 | P.HPHOSP_ITS ---
History of Present Illness Date of Service: 02/23/22 Chief Complaint: right-sided rib pain this is an 82-year-old female with past medical history of congestive heart failure, PE not on anticoagulation, type 2 diabetes, who presents to the hospital with complaints of rib pain. Patient reports that it was her birthday on Saturday last week, she got a bone crunching [place] from 1 of her friends was [birth year], and immediately felt a crunch and had severe pain on the right side mostly under her right breast. Patient reports that she tried to manage at home but started having difficulty breathing and pain associated with breathing every time she took a deep breath, she denies having cough, no fever or chills. No palpitations. Patient reports that she called her doctor and he asked her to come to the ED. she also feels constipated as she cannot push due to the pain in her chest. Her symptoms have been worsening for the past few days and pain is 10/10, constant, nonradiating. On arrival to the ED patient hemodynamically stable with no significant abnormal vitals Labs are significant for BUN of 34, creatinine of 1.45 with most recent creatinine of 1.22, patient was also noted to be hypoglycemic with a glucose of 44 patient received IV morphine x2 as well as lidocaine patch with persistent 10/10 pain, therefore she will be admitted for management of intractable pain as well as hypoglycemia patient will be admitted for further management Review of Systems Review of Systems: Yes all other systems are reviewed and are negative [facility] Medical History Congestive heart failure Obesity Pneumonia Pulmonary embolism Type 2 diabetes mellitus with hyperglycemia Type 2 diabetes mellitus with obesity Family History Father Diabetes CVD (cardiovascular disease) Mother No problems noted. Surgical History H/O prior ablation treatment History of cervical spinal surgery History of hysterectomy No pertinent past surgical history Social History Housing: Apartment Alcohol intake: never Patient Tobacco Use Status: Never used Tobacco Tobacco use type: Cigarette e-Cigarette/Vaping Use: Never Used Second Hand Smoke Exposure: No Advance Directives: Yes Advance Directives on File: Yes Advance Directives Date on File: 01/27/21 service: No Current occupational status: retired Current occupational exposures/hazards: No Cognitive needs: No Hearing needs: No Vision needs: No Meds Allergies Allergy/AdvReac Type Severity Reaction Status Date / Time levofloxacin [From LEVAQUIN] Allergy Intermediate RASH Verified 12/08/21 11:22 eszopiclone [From LUNESTA] Allergy Mild HALLUCINATI Verified 12/08/21 11:22 ONS zolpidem [Ambien] Allergy Unknown sleep Verified 12/08/21 11:22 walking meperidine [Meperidine] AdvReac Intermediate hallucinati Verified 12/08/21 11:22 ons pregabalin [From LYRICA] AdvReac Unknown AGITATION Verified 12/08/21 11:22 trazodone [TRAZODONE] AdvReac Unknown AGITATION Verified 12/08/21 11:22 Active Medications: Current Medications Acetaminophen (Acetaminophen 325 Mg Tablet) 650 mg PO Q6H PRN PRN Reason: Pain, Mild (Pain Scale 1-3) Dextrose (Dextrose 50 % 25 Gm/50 Ml Syringe) 25 gm IVPUSH Q15M PRN; Protocol PRN Reason: per Hypoglycemia Standing Ord. Docusate Sodium (Docusate Sodium 100 Mg Capsule) 100 mg PO DAILY PRN PRN Reason: Constipation Enoxaparin Sodium (Enoxaparin Sodium 40 Mg/0.4 Ml Syringe) 40 mg SUBCUT Q24H REGGIE Glucose (Glucose Gel 15 Gm Gel..Gram.) 15 gm PO Q15M PRN; Protocol PRN Reason: per Hypoglycemia Standing Ord. Insulin Human Lispro (Insulin Lispro 100 Unit/Ml 3 Ml Vial) 0 unit SUBCUT QIDACHS REGGIE; Protocol Morphine Sulfate (Morphine Sulfate 4 Mg/Ml Cartridge) 4 mg IVPUSH Q4H PRN; Protocol PRN Reason: Pain, Severe (Pain Scale 7-10) Ondansetron HCl (Ondansetron Hcl 4 Mg/2 Ml Vial) 4 mg IVPUSH Q8H PRN PRN Reason: Nausea and Vomiting Pharmacy Consult (Consult Rx Perform Med Rec) 1 each MISCELLANE ONCE PRN PRN Reason: Consult order Sodium Chloride (0.9 % Sodium Chloride Flush 3 Ml Syringe) [facility] Exam Vital Signs and Narrative: Vital Signs: Last Vital Signs Temp 98.5 F 02/23/22 00:13 Pulse 78 02/23/22 00:13 Resp 16 02/23/22 00:13 BP 155/70 H 02/23/22 00:13 Pulse Ox 95 02/23/22 00:13 BMI result Body Mass Index 25.5 Const: General: cooperative and no acute distress Orientation/consciousness: patient oriented x3 Eyes: General: appearance normal, both eyes and all related structures Pupils: Equal, round and reactive pupils present Chest: Other: tenderness below right breast on palpation Resp: Effort & Inspection: normal respiratory effort and able to speak in complete sentences Cardio: Rate: regular rate Rhythm: regular rhythm GI: Palpation (GI): Soft to palpation Auscultation: normal bowel sounds Skin: General skin exam: no rashes or lesions noted Neuro: General: patient oriented x3 Cranial nerves: Yes Equal, round and reactive pupils present Cognition (Neuro): normal cognition Extrem: General: Yes normal to inspection and Yes no pedal edema Results Labs CBC and Chem 7: 02/22/22 19:05 02/22/22 19:05 Labs: Laboratory Results - last 24 hr 02/22/22 02/22/22 02/22/22 18:27 19:05 19:05 MCV 88.4 MCH 26.9 L MCHC 30.4 L RDW 15.0 Plt Count 285 MPV 9.9 Immature Gran % (Auto) 0.4 Neut % (Auto) 71.3 Lymph % (Auto) 18.[address] [place] % (Auto) 7.9 Eos % (Auto) 1.4 Baso % (Auto) 0.3 Lymph # (Auto) 1.3 [place] # (Auto) 0.6 Eos # (Auto) 0.1 Baso # (Auto) 0.0 Abs Immat Gran (auto) 0.03 Absolute Neuts (auto) 5.0 Absolute Nucleated RBC 0.000 Nucleated RBC % (auto) 0.0 D-Dimer High Sensitivty 387 Anion Gap Estim Creat Clear Calc Estimated GFR POC Glucose 47 L* Random Glucose Calcium Magnesium Total Bilirubin AST ALT Alkaline Phosphatase Troponin I High Sens B-Natriuretic Peptide Total Protein Albumin COVID-19 (QUINTIN) COVID-19 Clin Com 02/22/22 02/22/22 02/22/22 19:05 19:05 19:05 MCV MCH MCHC RDW Plt Count MPV Immature Gran % (Auto) Neut % (Auto) Lymph % (Auto) [place] % (Auto) Eos % (Auto) Baso % (Auto) Lymph # (Auto) [place] # (Auto) Eos # (Auto) Baso # (Auto) Abs Immat Gran (auto) Absolute Neuts (auto) Absolute Nucleated RBC Nucleated RBC % (auto) D-Dimer High Sensitivty Anion Gap 17 Estim Creat Clear Calc 32.0 Estimated GFR 35 POC Glucose Random Glucose 77 Calcium 9.0 Magnesium 2.5 Total Bilirubin 0.5 AST 26 D ALT 17 Alkaline Phosphatase 86 Troponin I High Sens 9.5 B-Natriuretic Peptide 88 Total Protein 7.8 Albumin 4.2 COVID-19 (QUINTIN) Negative COVID-19 Clin Com See Note 02/22/22 02/22/22 20:32 22:36 MCV MCH MCHC RDW Plt Count MPV Immature Gran % (Auto) Neut % (Auto) Lymph % (Auto) [place] % (Auto) Eos % (Auto) Baso % (Auto) Lymph # (Auto) [place] # (Auto) Eos # (Auto) Baso # (Auto) Abs Immat Gran (auto) Absolute Neuts (auto) Absolute Nucleated RBC Nucleated RBC % (auto) D-Dimer High Sensitivty Anion Gap Estim Creat Clear Calc Estimated GFR POC Glucose 123 H Random Glucose Calcium Magnesium Total Bilirubin AST ALT Alkaline Phosphatase Troponin I High Sens 12.3 B-Natriuretic Peptide Total Protein Albumin COVID-19 (QUINTIN) COVID-19 Clin Com Imaging Radiologist's Impressions: Impressions Ribs X-Ray 02/22/22 17:34 IMPRESSION: Possibly nondisplaced right-sided seventh and eighth rib fractures. Correlate for point tenderness. Chronic interstitial thickening and bibasilar atelectasis/scarring. No acute cardiopulmonary findings. Chest CTA 02/22/22 20:22 IMPRESSION: 1. No central pulmonary emboli. Evaluation of segmental branches is limited due to motion. 2. Diffuse bronchial wall thickening suggesting the presence of small airways disease. Evaluation of the parenchyma and pulmonary nodules is overall limited due to respiratory motion. 3. Cardiomegaly and findings suggestive of pulmonary hypertension. 4. Age indeterminate bilateral anterior rib fractures as above. 5. Nonspecific water density lesion/fluid collection in the anterior upper abdomen. Correlate with physical examination and surgical history. VTE: indeterminate Abdomen/Pelvis CT 02/22/22 22:08 IMPRESSION: 1. No acute abnormality the abdomen or pelvis. 2. Status post Cholecystectomy. 3. Status post gastric bypass surgery. 4. Status post hysterectomy. Fleischner guidelines were followed. Assessment and Plan (1) Fracture, ribs: Status: Acute (2) Intractable pain: Status: Acute (3) Shortness of breath: Status: Acute (4) Chest pain not due to acute coronary syndrome: Status: Acute Plan 82-year-old female with past medical history of diabetes, PE presents to the hospital with complaints of shortness of breath as well as chest pain secondary to rib fracture # intractable chest pain - secondary to rib fracture - troponin negative - patient received multiple rounds of IV morphine as well as lidocaine patch with no relief - will admit for IV pain medication # shortness of breath - likely secondary to pain - no evidence of PE on CTA, no pneumonia - encourage use of incentive spirometry # hypoglycemia - unclear etiology - will treat with IV fluids as patient did not respond to D50 - follow glucose # history of PE - not on anticoagulation - CTA negative DVT prophylaxis: Lovenox Quality Stroke Does the patient have a stroke diagnosis?: No VTE Prior VTE?: No VTE Risk Level:: Medical - moderate - high VTE Device Contraindication: Treatment Not Indicated VTE Drug Contraindication: N/A - Med Ordered
[2022-02-23 01:32] LABS: Glucose, Whole Blood 39 mg/dL (60-115)
[2022-02-23] MEDS: Enoxaparin Sodium 40 MG/0.4 ML SYRINGE SUBCUT (01:39)
[2022-02-23] MEDS: Dextrose 50 % 25 GM/50 ML SYRINGE IVPUSH (01:39)
[2022-02-23 02:12] VITALS: BP 176/86; PULSE 77; RESP 12; O2SAT 96
[2022-02-23 03:02] LABS: Glucose, Whole Blood 71 mg/dL (60-115)
[2022-02-23 04:25] VITALS: BP 146/64; PULSE 80; RESP 20; TEMP 37; O2SAT 92
[2022-02-23 04:31] LABS: Glucose, Whole Blood 44 mg/dL (60-115)
[2022-02-23] MEDS: Dextrose 5 % and 0.2 % NaCl 1,000 ML 100 ML IVCONT (04:33)
[2022-02-23 05:44] LABS: Glucose, Whole Blood 209 mg/dL (60-115)
[2022-02-23] MEDS: Morphine Sulfate 4 MG/ML CARTRIDGE IVPUSH (06:10)
--- NOTE | 2022-02-23 06:13 | PC.NURSE ---
pt medicated for pain management per Mar.
[2022-02-23 07:12] LABS: MANUAL DIFF FLAG NO
[2022-02-23 07:15] LABS: Basophils Percent Auto 0.4 % (0-2); Eosinophils Absolute Auto 0.1 X10*3/uL (0.0-0.4); Eosinophils Percent Auto 1.6 % (0-4); Hematocrit 35.5 % (37.0-47.0); Hemoglobin 10.7 g/dl (12.0-16.0); Imm Gran Abs Auto 0.03 X10*3/uL (0.00-0.03); Imm Gran Pct Auto 0.4 % (0.0-0.4); Lymphocytes Absolute Auto 1.2 X10*3/uL (1.2-4.9); Lymphocytes Percent Auto 16.3 % (20-40); Mean Corpuscular HGB Conc 30.1 g/dl (31.0-35.0); Mean Corpuscular Hemoglobin 26.9 pg (27.0-33.0); Mean Corpuscular Volume 89.2 fL (80.0-98.0); Mean Platelet Volume 9.9 fL (9.4-12.3); Monocytes Absolute Auto 0.7 X10*3/uL (0.1-1.2); Monocytes Percent Auto 8.8 % (2-11); Neutrophils Absolute Auto 5.4 x10*3/uL (2.0-8.3); Neutrophils Percent Auto 72.5 % (45-73); Platelet Count 266 X10*3/uL (160-400); Red Blood Count 3.98 X10*6/uL (4.20-5.50); Red Cell Distribution Width 15.3 % (11.0-16.0); White Blood Count 7.4 X10*3/uL (4.8-10.8)
[2022-02-23 07:18] LABS: Glucose, Whole Blood 178 mg/dL (60-115)
[2022-02-23] MEDS: Insulin Lispro 100 UNIT/ML 3 ML VIAL SUBCUT (07:34)
[2022-02-23 07:36] LABS: Anion Gap 12 (12-20); Blood Urea Nitrogen 25 mg/dL (9-16); Calcium 8.6 mg/dL (8.4-10.2); Carbon Dioxide 22 mmol/L (22-29); Chloride 108 mmol/L (96-108); Estimated Glomerular Filt Rate 42; Glucose Random 192 mg/dL (60-115); Potassium 4.2 mmol/L (3.3-5.1); Sodium 138 mmol/L (135-145)
--- NOTE | 2022-02-23 08:32 | PHA.MEDREC ---
Pharmacy Consult ? Medication Reconciliation Pharmacy has completed the medication reconciliation. Pt states that she is currently in the process of adjusting her lantus, but currently takes 24 units at bedtime. Rachell Aguilar, EdD
[2022-02-23] MEDS: traMADoL HCL 50 MG TABLET PO ×2 (10:01→13:37)
[2022-02-23] MEDS: polyethylene glycoL 3350 17 GM POWD.PACK PO (10:01)
[2022-02-23] MEDS: Docusate Sodium 100 MG CAPSULE PO (10:01)
--- NOTE | 2022-02-23 11:54 | PM.DS ---
DS: Providers Provider Date of Service: 02/23/22 Date of admission: 02/23/22 00:31 Primary care physician: Jin Arshad MD DS: Diagnosis Discharge Diagnosis (1) Fracture, ribs: Status: Acute (2) Intractable pain: Status: Acute (3) Shortness of breath: Status: Acute (4) Chest pain not due to acute coronary syndrome: Status: Acute DS: Summary Hospital Course Hospital Course: admission note HPI ?this is an 82-year-old female with past medical history of congestive heart failure, PE not on anticoagulation, type 2 diabetes, who presents to the hospital with complaints of rib pain.? Patient reports that it was her birthday on Saturday last [birth year], she got a bone crunching [place] from 1 of her friends was 6 8, and immediately felt a crunch and had severe pain on the right side mostly under her right breast.? Patient reports that she tried to manage at home but started having difficulty breathing and pain associated with breathing every time she took a deep breath, she denies having cough, no fever or chills.? No palpitations.? Patient reports that she called her doctor and he asked her to come to the ED. she also feels constipated as she cannot push due to the pain in her chest.? Her symptoms have been worsening for the past few days and pain is 10/10, constant, nonradiating. ? On arrival to the ED patient hemodynamically stable with no significant abnormal vitals Labs are significant for BUN of 34, creatinine of 1.45 with most recent creatinine of 1.22, patient was also noted to be hypoglycemic with a glucose of 44 ?patient received IV morphine x2 as well as lidocaine patch with persistent 10/10 pain, therefore she will be admitted for management of intractable pain as well as hypoglycemia Hospital course the patient was admitted to the hospital for observation for intractable chest pain after sustaining a rib fracture. chest x-ray was negative for lung injuries. Controlled with IV and oral medications as the patient was able to ambulate. plan to discharge home To use Tylenol and tramadol as needed. Her blood sugar was noted to be significantly low at 44 at time of presentation responded to IV fluid and diet. Patient reports that her morning readings are usually low and she has many readings of 50s and 40s which are mainly asymptomatic. Advised to discuss her diabetes treatment with her primary and meanwhile will decrease her Lantus from 24 units to 15 at bedtime. To follow up with PCP as outpatient Time Spent with Patient Time attestation: Total time spent providing and/or coordinating discharge services: Discharge coordination time: Less than 30 minutes Quality: Safe Use of Opioids Does Pt have an Active Cancer Diagnosis on the Problem List?: No Quality: Stroke Does the patient have a stroke diagnosis?: No Physical Exam Vital Signs: Vital Signs: Last Vital Signs Temp 98.6 F 02/23/22 04:25 Pulse 80 02/23/22 04:25 Resp 20 02/23/22 04:25 BP 146/64 H 02/23/22 04:25 Pulse Ox 92 02/23/22 04:25 BMI result Body Mass Index 25.5 Const: Other: Constitutional : Alert, oriented, not in distress Neck : Normal inspection, Supple Cardiovascular : RRR, no JVP, no lower extremity edema Respiratory : fair bilateral air entry, no crackles, wheezes or rhonchi , chest wall tenderness at the right sided of rib fracture Gastrointestinal: soft, lax, Normal bowel sounds, Non tender Skin : Warm, Dry Neurological : Alert & oriented x3, No focal deficit , CN 2-12 within normal DS: Data Data Completed and Pending Labs on day of discharge: Laboratory Results - last 24 hr 02/22/22 02/22/22 02/22/22 18:27 19:05 19:05 WBC 7.0 RBC 4.32 Hgb 11.6 L Hct 38.2 MCV 88.4 MCH 26.9 L MCHC 30.4 L RDW 15.0 Plt Count 285 MPV 9.9 Immature Gran % (Auto) 0.4 Neut % (Auto) 71.3 Lymph % (Auto) 18.7 L [place] % (Auto) 7.9 Eos % (Auto) 1.4 Baso % (Auto) 0.3 Lymph # (Auto) 1.3 [place] # (Auto) 0.6 Eos # (Auto) 0.1 Baso # (Auto) 0.0 Abs Immat Gran (auto) 0.03 Absolute Neuts (auto) 5.0 Absolute Nucleated RBC 0.000 Nucleated RBC % (auto) 0.0 D-Dimer High Sensitivty 387 Sodium Potassium Chloride Carbon Dioxide Anion Gap BUN Creatinine Estim Creat Clear Calc Estimated GFR POC Glucose 47 L* Random Glucose Calcium Magnesium Total Bilirubin AST ALT Alkaline Phosphatase Troponin I High Sens B-Natriuretic Peptide Total Protein Albumin COVID-19 (QUINTIN) COVID-19 [employer] Com 02/22/22 02/22/22 02/22/22 19:05 19:05 19:05 WBC RBC Hgb Hct MCV MCH MCHC RDW Plt Count MPV Immature Gran % (Auto) Neut % (Auto) Lymph % (Auto) [place] % (Auto) Eos % (Auto) Baso % (Auto) Lymph # (Auto) [place] # (Auto) Eos # (Auto) Baso # (Auto) Abs Immat Gran (auto) Absolute Neuts (auto) Absolute Nucleated RBC Nucleated RBC % (auto) D-Dimer High Sensitivty Sodium 141 Potassium 4.7 Chloride 108 Carbon Dioxide 21 L Anion Gap 17 BUN 34 H Creatinine 1.45 H Estim Creat Clear Calc 32.0 Estimated GFR 35 POC Glucose Random Glucose 77 Calcium 9.0 Magnesium 2.5 Total Bilirubin 0.5 AST 26 D ALT 17 Alkaline Phosphatase 86 Troponin I High Sens 9.5 B-Natriuretic Peptide 88 Total Protein 7.8 Albumin 4.2 COVID-19 (QUINTIN) Negative COVID-19 Mobile Location, IP See Note 02/22/22 02/22/22 02/23/22 20:32 22:36 01:28 WBC RBC Hgb Hct MCV MCH MCHC RDW Plt Count MPV Immature Gran % (Auto) Neut % (Auto) Lymph % (Auto) [place] % (Auto) Eos % (Auto) Baso % (Auto) Lymph # (Auto) [place] # (Auto) Eos # (Auto) Baso # (Auto) Abs Immat Gran (auto) Absolute Neuts (auto) Absolute Nucleated RBC Nucleated RBC % (auto) D-Dimer High Sensitivty Sodium Potassium Chloride Carbon Dioxide Anion Gap BUN Creatinine Estim Creat Clear Calc Estimated GFR POC Glucose 123 H 39 L* Random Glucose Calcium Magnesium Total Bilirubin AST ALT Alkaline Phosphatase Troponin I High Sens 12.3 B-Natriuretic Peptide Total Protein Albumin COVID-19 (QUINTIN) COVID-19 Mobile Location, IP 02/23/22 02/23/22 02/23/22 02:58 04:22 05:40 WBC RBC Hgb Hct MCV MCH MCHC RDW Plt Count MPV Immature Gran % (Auto) Neut % (Auto) Lymph % (Auto) [place] % (Auto) Eos % (Auto) Baso % (Auto) Lymph # (Auto) [place] # (Auto) Eos # (Auto) Baso # (Auto) Abs Immat Gran (auto) Absolute Neuts (auto) Absolute Nucleated RBC Nucleated RBC % (auto) D-Dimer High Sensitivty Sodium Potassium Chloride Carbon Dioxide Anion Gap BUN Creatinine Estim Creat Clear Calc Estimated GFR POC Glucose 71 44 L* 209 H Random Glucose Calcium Magnesium Total Bilirubin AST ALT Alkaline Phosphatase Troponin I High Sens B-Natriuretic Peptide Total Protein Albumin COVID-19 (QUINTIN) COVID-19 Clin Com 02/23/22 02/23/22 02/23/22 07:02 07:02 07:06 WBC 7.4 RBC 3.98 L Hgb 10.7 L Hct 35.5 L MCV 89.2 MCH 26.9 L MCHC 30.1 L RDW 15.3 Plt Count 266 MPV 9.9 Immature Gran % (Auto) 0.4 Neut % (Auto) 72.5 Lymph % (Auto) 16.3 L [place] % (Auto) 8.8 Eos % (Auto) 1.6 Baso % (Auto) 0.4 Lymph # (Auto) 1.2 [place] # (Auto) 0.7 Eos # (Auto) 0.1 Baso # (Auto) 0.0 Abs Immat Gran (auto) 0.03 Absolute Neuts (auto) 5.4 Absolute Nucleated RBC 0.000 Nucleated RBC % (auto) 0.0 D-Dimer High Sensitivty Sodium 138 Potassium 4.2 Chloride 108 Carbon Dioxide 22 Anion Gap 12 BUN 25 H Creatinine 1.22 Estim Creat Clear Calc 38.0 Estimated GFR 42 POC Glucose 178 H Random Glucose 192 H Calcium 8.6 Magnesium Total Bilirubin AST ALT Alkaline Phosphatase Troponin I High Sens B-Natriuretic Peptide Total Protein Albumin COVID-19 (QUINTIN) COVID-19 Clin Com Imaging Chest x-ray: Radiologist's impression: ITS Impressions Ribs X-Ray 02/22/22 17:34 IMPRESSION: Possibly nondisplaced right-sided seventh and eighth rib fractures. Correlate for point tenderness. Chronic interstitial thickening and bibasilar atelectasis/scarring. No acute cardiopulmonary findings. Chest CTA 02/22/22 20:22 IMPRESSION: 1. No central pulmonary emboli. Evaluation of segmental branches is limited due to motion. 2. Diffuse bronchial wall thickening suggesting the presence of small airways disease. Evaluation of the parenchyma and pulmonary nodules is overall limited due to respiratory motion. 3. Cardiomegaly and findings suggestive of pulmonary hypertension. 4. Age indeterminate bilateral anterior rib fractures as above. 5. Nonspecific water density lesion/fluid collection in the anterior upper abdomen. Correlate with physical examination and surgical history. VTE: indeterminate Abdomen/Pelvis CT 02/22/22 22:08 IMPRESSION: 1. No acute abnormality the abdomen or pelvis. 2. Status post Cholecystectomy. 3. Status post gastric bypass surgery. 4. Status post hysterectomy. Fleischner guidelines were followed. Discharge Plan Discharge Patient Disposition: Home, Self-Care Discharge Diagnosis: rib fracture Referrals: Jin Arshad MD [Primary Care Provider] - 1 Week Discharge Medications: New tramadol 50 mg Tablet 50 mg PO Q4-6H PRN (Reason: Pain, Severe (Pain Scale 7-10)) Qty: 20 0RF Continued duloxetine 20 mg capsule,delayed release(DR/EC) 20 mg PO BID Qty: 180 8RF tizanidine 4 mg capsule 8 mg PO BEDTIME 0RF omeprazole 20 mg tablet,delayed release (DR/EC) 20 mg PO DAILY PRN (Reason: Acid Reflux) 0RF melatonin 5 mg tablet 10 mg PO BEDTIME 0RF Changed Lantus Solostar U-100 Insulin 100 unit/mL (3 mL) insulin pen 15 unit subcut BEDTIME Qty: 15 8RF Rx Instructions: INJECT 12-18 UNITS PER SLIDING SCALE. Discharge Orders: Discharge Order (Routine); Ordered 02/23/22 Ordered By: Sukhjinder Woods Diet: advance to usual diet Activity on Discharge: As tolerated Stand Alone Forms: Patient Portal Discharge page Care Plan Goals: Read below Health Concerns: Read below Plan of Treatment: Read below Assessment: you were admitted to the hospital for evaluation of chest pain after rib fracture. Treated with IV and oral pain medication with fair response as chest x-ray did not show any injury to your lung. your blood sugar was noted to be low requiring IV fluid with glucose. Your numbers improved and maintained stable the next morning. Increase your activity gradually over the next few days Use tramadol and Tylenol as needed to control the pain Cut down your insulin Lantus to 15 units nighttime and to follow-up with your PCP
[2022-02-23 12:57] LABS: Glucose, Whole Blood 131 mg/dL (60-115)
--- NOTE | 2022-02-23 14:17 | MHC.CM.PN ---
CM ATTEMPTED TO SEE PT IN ED ROOM 11, PT WAS RECEIVING CARE. PT DISCHARGED PRIOR TO CM RETURN. PT DISCHARGED HOME WITH NO NEW SERVICES. DAUGHTER PROVIDED TRANSPORT
== END 2022-02-23 13:47 | disposition home or self-care (01) ==
LOC: HO.ED 23:06 → HO.EDOVER 02-23 00:43 → HO.S3 02-23 12:34 → HO.EDOVER 02-23 12:58
PROVIDERS: Physician Assistant; Admitting Provider Internal Medicine; Emergency Provider Internal Medicine; PCP Internal Medicine; Visit Provider Student in an Organized Health Care Education/Training Program
DX: S22.43XA Multiple fractures of ribs, bilateral, initial encounter for closed fracture (principal); X58.XXXA Exposure to other specified factors, initial encounter; Y93.89 Activity, other specified; Y92.9 Unspecified place or not applicable; Y99.8 Other external cause status; R10.11 Right upper quadrant pain; R79.89 Other specified abnormal findings of blood chemistry; R06.02 Shortness of breath; R07.9 Chest pain, unspecified; I11.0 Hypertensive heart disease with heart failure; I50.9 Heart failure, unspecified; I44.0 Atrioventricular block, first degree; I44.7 Left bundle-branch block, unspecified; E11.649 Type 2 diabetes mellitus with hypoglycemia without coma; E66.9 Obesity, unspecified; I26.99 Other pulmonary embolism without acute cor pulmonale; M47.814 Spondylosis without myelopathy or radiculopathy, thoracic region; Z68.25 Body mass index [BMI] 25.0-25.9, adult; Z20.822 Contact with and (suspected) exposure to COVID-19; Z90.49 Acquired absence of other specified parts of digestive tract; Z98.84 Bariatric surgery status; Z90.710 Acquired absence of both cervix and uterus; Z88.6 Allergy status to analgesic agent; Z88.1 Allergy status to other antibiotic agents; Z88.3 Allergy status to other anti-infective agents; Z88.8 Allergy status to other drugs, medicaments and biological substances; Z79.4 Long term (current) use of insulin; Z79.899 Other long term (current) drug therapy
CPT/HCPCS: 36415; 71101; 71275; 74176; 80048; 80053; 82947; 83735; 83880; 84484; 85025; 85379; 87635; 93005; 96361; 96365; 96366; 96372; 96375; 96376; 99218; 99284; 99285; J1650; J2270; Q9967

== ENCOUNTER 2022-04-03 11:13 | Outpatient (REF) | payer OTHER, SELFPAY ==
[2022-04-03 11:37] LABS: MANUAL DIFF FLAG NO
[2022-04-03 11:54] LABS: Basophils Absolute Auto 0.1 X10*3/uL (0.0-0.2); Basophils Percent Auto 0.9 % (0-2); Eosinophils Absolute Auto 0.1 X10*3/uL (0.0-0.4); Eosinophils Percent Auto 2.1 % (0-4); Hematocrit 34.4 % (37.0-47.0); Hemoglobin 10.6 g/dl (12.0-16.0); Imm Gran Abs Auto 0.04 X10*3/uL (0.00-0.03); Imm Gran Pct Auto 0.7 % (0.0-0.4); Lymphocytes Absolute Auto 1.7 X10*3/uL (1.2-4.9); Lymphocytes Percent Auto 29.1 % (20-40); Mean Corpuscular HGB Conc 30.8 g/dl (31.0-35.0); Mean Corpuscular Hemoglobin 27.8 pg (27.0-33.0); Mean Corpuscular Volume 90.3 fL (80.0-98.0); Mean Platelet Volume 9.5 fL (9.4-12.3); Monocytes Absolute Auto 0.6 X10*3/uL (0.1-1.2); Monocytes Percent Auto 10.9 % (2-11); Neutrophils Absolute Auto 3.3 x10*3/uL (2.0-8.3); Neutrophils Percent Auto 56.3 % (45-73); Platelet Count 303 X10*3/uL (160-400); Red Blood Count 3.81 X10*6/uL (4.20-5.50); Red Cell Distribution Width 16.9 % (11.0-16.0); White Blood Count 5.8 X10*3/uL (4.8-10.8)
[2022-04-03 11:57] LABS: Estimated Average Glucose 143 mg/dL; Hemoglobin A1c % 6.6 %
[2022-04-03 12:19] LABS: Anion Gap 13 (12-20); Blood Urea Nitrogen 31 mg/dL (9-16); Calcium 9.3 mg/dL (8.4-10.2); Carbon Dioxide 23 mmol/L (22-29); Chloride 107 mmol/L (96-108); Cholesterol 202 mg/dL; Estimated Glomerular Filt Rate 35; Glucose Random 125 mg/dL (60-115); HDL Cholesterol 52 mg/dL; LDL Cholesterol Calculated 131 mg/dl; Potassium 5.1 mmol/L (3.3-5.1); Sodium 138 mmol/L (135-145); Triglycerides 95 mg/dL
== END 2022-04-03 11:14 | disposition home or self-care (01) ==
LOC: HO.LAB 11:13
PROVIDERS: PCP Internal Medicine; Visit Provider Internal Medicine
DX: Z00.00 Encounter for general adult medical examination without abnormal findings (principal); E03.9 Hypothyroidism, unspecified; R51.9 Headache, unspecified; E11.9 Type 2 diabetes mellitus without complications
CPT/HCPCS: 36415; 80048; 80061; 83036; 84443; 85025

== ENCOUNTER 2022-06-08 16:30 | Outpatient (REF) | payer OTHER, SELFPAY ==
[2022-06-08 16:59] LABS: Estimated Average Glucose 174 mg/dL; Hemoglobin A1c % 7.7 %; Total Hemoglobin (HGBA1C) 2930.6172 umol/L
[2022-06-08 17:13] LABS: Alanine Aminotransferase 14 U/L (0-31); Albumin Level 4.1 g/dL (3.5-5.0); Alkaline Phosphatase 101 U/L (39-117); Anion Gap 16 (12-20); Aspartate Amino Transferase 16 U/L (5-31); Bilirubin Total 0.6 mg/dL (0.0-1.0); Blood Urea Nitrogen 23 mg/dL (9-16); Calcium 9.1 mg/dL (8.4-10.2); Carbon Dioxide 24 mmol/L (22-29); Chloride 107 mmol/L (96-108); Estimated Glomerular Filt Rate 45; Glucose Fasting 161 mg/dL (60-99); Potassium 5.6 mmol/L (3.3-5.1); Sodium 141 mmol/L (135-145); Total Protein 7.2 g/dL (6.5-8.0)
== END 2022-06-08 16:31 | disposition home or self-care (01) ==
LOC: HO.LAB 16:30
PROVIDERS: PCP Internal Medicine; Visit Provider Internal Medicine
DX: E11.9 Type 2 diabetes mellitus without complications (principal)
CPT/HCPCS: 36415; 80053; 83036

== ENCOUNTER 2023-01-10 05:35 | Outpatient (REF) | payer OTHER, SELFPAY ==
[2023-01-10 05:39] LABS: MANUAL DIFF FLAG NO
[2023-01-10 06:15] LABS: Alanine Aminotransferase < 6 U/L (0-31); Albumin Level 2.9 g/dL (3.5-5.0); Alkaline Phosphatase 82 U/L (39-117); Anion Gap 13 (12-20); Aspartate Amino Transferase 19 U/L (5-31); Bilirubin Total 0.9 mg/dL (0.0-1.0); Blood Urea Nitrogen 19 mg/dL (9-16); Calcium 8.2 mg/dL (8.4-10.2); Carbon Dioxide 26 mmol/L (22-29); Chloride 108 mmol/L (96-108); Estimated Glomerular Filt Rate 42; Glucose Random 126 mg/dL (60-115); Potassium 5.2 mmol/L (3.3-5.1); Sodium 142 mmol/L (135-145); Total Protein 5.6 g/dL (6.5-8.0)
[2023-01-10 06:23] LABS: Basophils Absolute Auto 0.1 X10*3/uL (0.0-0.2); Eosinophils Absolute Auto 0.4 X10*3/uL (0.0-0.4); Eosinophils Percent Auto 4.8 % (0-4); Hematocrit 28.8 % (37.0-47.0); Hemoglobin 8.9 g/dl (12.0-16.0); Imm Gran Abs Auto 0.19 X10*3/uL (0.00-0.03); Imm Gran Pct Auto 2.2 % (0.0-0.4); Lymphocytes Absolute Auto 1.9 X10*3/uL (1.2-4.9); Lymphocytes Percent Auto 21.8 % (20-40); Mean Corpuscular HGB Conc 30.9 g/dl (31.0-35.0); Mean Corpuscular Hemoglobin 29.2 pg (27.0-33.0); Mean Corpuscular Volume 94.4 fL (80.0-98.0); Mean Platelet Volume 10.3 fL (9.4-12.3); Monocytes Absolute Auto 0.8 X10*3/uL (0.1-1.2); Monocytes Percent Auto 9.5 % (2-11); NRBC Pct Auto 0.3 /100WBC (0.0-0.2); Neutrophils Absolute Auto 5.3 x10*3/uL (2.0-8.3); Neutrophils Percent Auto 60.7 % (45-73); Platelet Count 378 X10*3/uL (160-400); Red Blood Count 3.05 X10*6/uL (4.20-5.50); Red Cell Distribution Width 15.5 % (11.0-16.0); White Blood Count 8.7 X10*3/uL (4.8-10.8)
== END 2023-01-10 05:36 | disposition home or self-care (01) ==
LOC: HO.MMNH2L 05:35
PROVIDERS: Visit Provider Family Medicine
DX: I10 Essential (primary) hypertension (principal)
CPT/HCPCS: 36415; 80053; 85025

== ENCOUNTER 2023-01-14 06:09 | Outpatient (REF) | payer OTHER, SELFPAY ==
[2023-01-14 06:02] LABS: MANUAL DIFF FLAG NO
[2023-01-14 06:29] LABS: Basophils Absolute Auto 0.1 X10*3/uL (0.0-0.2); Basophils Percent Auto 1.1 % (0-2); Eosinophils Absolute Auto 0.5 X10*3/uL (0.0-0.4); Eosinophils Percent Auto 6.9 % (0-4); Hematocrit 27.7 % (37.0-47.0); Hemoglobin 8.1 g/dl (12.0-16.0); Imm Gran Abs Auto 0.14 X10*3/uL (0.00-0.03); Lymphocytes Absolute Auto 1.6 X10*3/uL (1.2-4.9); Lymphocytes Percent Auto 22.5 % (20-40); Mean Corpuscular HGB Conc 29.2 g/dl (31.0-35.0); Mean Corpuscular Hemoglobin 28.7 pg (27.0-33.0); Mean Corpuscular Volume 98.2 fL (80.0-98.0); Monocytes Absolute Auto 0.7 X10*3/uL (0.1-1.2); Monocytes Percent Auto 10.2 % (2-11); Neutrophils Percent Auto 57.3 % (45-73); Platelet Count 433 X10*3/uL (160-400); Red Blood Count 2.82 X10*6/uL (4.20-5.50); Red Cell Distribution Width 16.4 % (11.0-16.0)
[2023-01-14 06:34] LABS: Anion Gap 14 (12-20); Blood Urea Nitrogen 21 mg/dL (9-16); Calcium 8.1 mg/dL (8.4-10.2); Carbon Dioxide 26 mmol/L (22-29); Chloride 108 mmol/L (96-108); Estimated Glomerular Filt Rate 50; Glucose Random 231 mg/dL (60-115); Potassium 5.6 mmol/L (3.3-5.1); Sodium 142 mmol/L (135-145)
== END 2023-01-14 06:10 | disposition home or self-care (01) ==
LOC: HO.MMNH2L 06:09
PROVIDERS: Visit Provider Family Medicine
DX: I10 Essential (primary) hypertension (principal)
CPT/HCPCS: 36415; 80048; 85025

== ENCOUNTER 2023-01-21 06:49 | Outpatient (REF) | payer OTHER, SELFPAY ==
[2023-01-21 06:31] LABS: MANUAL DIFF FLAG NO
[2023-01-21 07:36] LABS: Blood Urea Nitrogen 21 mg/dL (9-16); Calcium 8.7 mg/dL (8.4-10.2); Estimated Glomerular Filt Rate 57; Glucose Random 122 mg/dL (60-115)
[2023-01-21 07:51] LABS: Anion Gap 14 (12-20); Carbon Dioxide 25 mmol/L (22-29); Chloride 108 mmol/L (96-108); Sodium 141 mmol/L (135-145)
[2023-01-21 07:58] LABS: Basophils Absolute Auto 0.1 X10*3/uL (0.0-0.2); Basophils Percent Auto 0.8 % (0-2); Eosinophils Absolute Auto 0.2 X10*3/uL (0.0-0.4); Eosinophils Percent Auto 2.5 % (0-4); Hematocrit 31.2 % (37.0-47.0); Hemoglobin 9.4 g/dl (12.0-16.0); Imm Gran Abs Auto 0.06 X10*3/uL (0.00-0.03); Imm Gran Pct Auto 0.8 % (0.0-0.4); Lymphocytes Absolute Auto 1.6 X10*3/uL (1.2-4.9); Mean Corpuscular HGB Conc 30.1 g/dl (31.0-35.0); Mean Corpuscular Hemoglobin 29.5 pg (27.0-33.0); Mean Corpuscular Volume 97.8 fL (80.0-98.0); Mean Platelet Volume 9.9 fL (9.4-12.3); Monocytes Absolute Auto 0.7 X10*3/uL (0.1-1.2); Monocytes Percent Auto 9.2 % (2-11); Neutrophils Percent Auto 65.7 % (45-73); Platelet Count 505 X10*3/uL (160-400); Red Blood Count 3.19 X10*6/uL (4.20-5.50); Red Cell Distribution Width 16.4 % (11.0-16.0); White Blood Count 7.7 X10*3/uL (4.8-10.8)
[2023-01-21 08:03] LABS: Potassium 6.1 mmol/L (3.3-5.1)
== END 2023-01-21 06:50 | disposition home or self-care (01) ==
LOC: HO.MMNH2L 06:49
PROVIDERS: Visit Provider Family Medicine
DX: I10 Essential (primary) hypertension (principal)
CPT/HCPCS: 36415; 80048; 85025

== ENCOUNTER 2023-06-14 08:27 | Outpatient (AMB) | payer OTHER, SELFPAY ==
--- NOTE | 2023-06-14 08:32 | MHC.PC.OV ---
Vital Signs 06/14/23 08:34 Height 4 ft 10 in Weight 145 lb 6 oz BMI 30.4 BP 140/70 H Blood Pressure Location Lt brachial Position Sitting Pulse 93 Pulse Source Pulse Oximeter Pulse Oximetry (%) 98 Oxygen Delivery Method Room Air Intake Visit Reasons: Follow ups from Surgery please send blood work to Intake Note: Patient is here to follow up on leg surgery. 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 Hot Stone Setter: Not Required per policy Accompanied by: Self / Same As Patient Allergies levofloxacin [From LEVAQUIN] Allergy (Intermediate, Verified 06/14/23 08:33) RASH eszopiclone [From LUNESTA] Allergy (Mild, Verified 06/14/23 08:33) HALLUCINATIONS zolpidem [Ambien] Allergy (Unknown, Verified 06/14/23 08:33) sleep walking meperidine [Meperidine] Adverse Reaction (Intermediate, Verified 06/14/23 08:33) hallucinations pregabalin [From LYRICA] Adverse Reaction (Unknown, Verified 06/14/23 08:33) AGITATION trazodone [TRAZODONE] Adverse Reaction (Unknown, Verified 06/14/23 08:33) AGITATION Medication List - Last Reconciled 06/14/23 by Jin Arshad MD aspirin 81 mg PO DAILY blood sugar diagnostic (FreeStyle Lite Strips) Test 3 times Daily carbamazepine 100 mg PO BID duloxetine 20 mg PO BID lancets (FreeStyle Lancets) USE DIRECTED TO CHECK BLOOD SUGAR TWICE A DAY melatonin 10 mg (2 x 5 mg) PO BEDTIME meloxicam 15 mg PO DAILY metformin 500 mg PO BID tizanidine 8 mg (2 x 4 mg) PO BEDTIME Tobacco use date assessed: 06/14/23 Fall risk assessment: 1 Fall in past year Last assessed Fall Risk: 06/14/23 Dental Screening Dental Screen Date: 06/14/23 Did you have a dental visit in the last 12 months?: Yes Did you have a dental problem in the last 6 months where you did not have access to dental care?: No Was dental information given to patient?: No HPI Follow ups from Surgery please send blood work to HPI Details DM HTN and osteoarthritis; due for labs; feeling better [facility] Medical History (Updated 06/14/23 @ 09:16 by Jin Arshad MD) Congestive heart failure Fracture, ribs Obesity Pneumonia Pulmonary embolism Type 2 diabetes mellitus with hyperglycemia Type 2 diabetes mellitus with obesity Surgical History (Updated 06/14/23 @ 08:42 by YANIV Acuna) H/O prior ablation treatment History of cervical spinal surgery History of hysterectomy History of surgery on lower extremity Family History Father Diabetes CVD (cardiovascular disease) Mother No problems noted. Social History Housing: Apartment Alcohol intake: never Patient Tobacco Use Status: Never used Tobacco Tobacco use type: Cigarette e-Cigarette/Vaping Use: Never Used Second Hand Smoke Exposure: No Advance Directives Date on File: 01/27/21 service: No Current occupational status: retired Current occupational exposures/hazards: No Cognitive needs: Yes (walker/cane) Hearing needs: No Vision needs: Yes (glasses) Questionnaire PHQ-9 Over the last 2 weeks, how often have you been bothered by any of the following problems? Depression Screening Interpretation: Negative Source: Developed by Drs. Tim Hi, Yoselin Shahid, Brody Garcia and colleagues, with an educational trista from [employer]. Thrive Questionnaire Date Thrive assessed: 02/14/23 Currently or been in a relationship where the following occur: no concerns reported MARCELLA-7 AMB Questionnaire MARCELLA-7 Date MARCELLA - 7 assessed: 02/14/23 Source: Developed by Drs. Tim Hi, Yoselin Shahid, Brody Garcia and colleagues, with an educational trista from [employer]. Review of Systems Const Denies chills, Denies headache(s) and Denies weight loss ENT Denies headache(s) Card Denies chest pain, Denies syncope, Denies irregular heart rhythm and Denies dyspnea Resp Denies chest congestion, Denies cough and Denies dyspnea GI Denies abdominal pain, Denies change in stool character, Denies nausea and Denies vomiting Musc Denies deformity and Denies joint swelling Neuro Denies syncope and Denies headache(s) Physical exam (Primary Care) Vital Signs: Last Vital Signs Pulse 93 06/14/23 08:34 BP 140/70 H 06/14/23 08:34 Pulse Ox 98 06/14/23 08:34 Oxygen Delivery Method Room Air 06/14/23 08:34 BMI result Body Mass Index 30.4 Tobacco/Smoking Status: Tobacco use Status Tobacco use date assessed 06/14/23 06/14/23 08:45 Patient Tobacco Use Status Never used Tobacco 06/14/23 08:45 Tobacco use type Cigarette 06/14/23 08:45 e-Cigarette/Vaping Use Never Used 06/14/23 08:45 Depression Screening Interpretation: Negative Thrive Assessment: Date of Thrive Assessment Date Thrive assessed 02/14/23 06/14/23 08:45 Currently or been in a relationship where the following occur: no concerns reported Const General: cooperative, healthy appearing and no acute distress Orientation/consciousness: oriented to person, oriented to place and oriented to time HENMT Head: Yes normal to inspection, Yes normocephalic and Yes atraumatic Mouth: Normal oral and palatal mucosa present and tongue normal Throat: Yes posterior oropharynx normal and Yes uvula midline Eyes General: appearance normal, both eyes and all related structures Neck Neck: Yes normal visual inspection, Yes full ROM and Yes no lymphadenopathy Thyroid: Thyroid normal Carotids: normal carotid upstroke Chest Chest palpation & inspection: normal inspection of the chest Resp Effort & Inspection: normal respiratory effort and able to speak in complete sentences Auscultation: clear to auscultation bilaterally Cardio Jugular venous distension: no JVD Palpation: normal PMI Rate: regular rate Rhythm: regular rhythm Heart sounds: S1 normal heart sound present and S2 normal heart sound present GI Inspection: Yes normal to inspection Palpation (GI): Soft to palpation and No hepatosplenomegaly present Auscultation: normal bowel sounds General: Yes no CVA tenderness Back/Spine/Pelvis Back: no CVA tenderness Skin General skin exam: no rashes or lesions noted Neuro General: oriented to person, oriented to place and oriented to time Extrem General: Yes normal to inspection and Yes full ROM Results AMB Hemoglobin A1c AMB Hemoglobin A1c 7.1 % Last Edit by YANIV Acuna on 06/14/23 08:47 Results Reviewed Results Reviewed: Laboratory Last Values Hgb A1c (Clinic) 7.1 % (4.0-6.0) H 06/14/23 08:31 Assessment and Plan Assessment & Plan (1) Diabetes mellitus with coincident hypertension: Code(s): E11.9 - Type 2 diabetes mellitus without complications; I10 - Essential (primary) hypertension Plan: stable; due for labs (2) Hypertension: Code(s): I10 - Essential (primary) hypertension Plan: stable; same rx (3) Osteoarthritis: Code(s): M19.90 - Unspecified osteoarthritis, unspecified site Plan: start rx Orders: Orders XR DEXA axial skeleton Today M85.80 - Other specified disorders of bone density and structure, unspecified site MM tomosynthesis screen imp BI Today Z12.31 - Encounter for screening mammogram for malignant neoplasm of breast AMB Hemoglobin A1c Today E11.65 - Type 2 diabetes mellitus with hyperglycemia, E11.69 - Type 2 diabetes mellitus with other specified complication, E66.9 - Obesity, unspecified Referrals Podiatry Referral M79.673 - Pain in unspecified foot Medications: New meloxicam 15 mg PO DAILY 30 tabs 9RF Coding Level of Care Code Est Pt Level 4 (29329) Diagnoses Diabetes mellitus with coincident hypertension E11.9; I10 Hypertension I10 Osteoarthritis M19.90
[2023-06-14 08:34] VITALS: BP 140/70; PULSE 93; O2SAT 98; BMI 30.4
== END 2023-06-14 09:13 | disposition home or self-care (01) ==
PROVIDERS: PCP Internal Medicine; Visit Provider Internal Medicine
DX: I10 Essential (primary) hypertension (principal); E11.69 Type 2 diabetes mellitus with other specified complication; Z68.30 Body mass index [BMI] 30.0-30.9, adult; E66.9 Obesity, unspecified; E11.65 Type 2 diabetes mellitus with hyperglycemia; M19.90 Unspecified osteoarthritis, unspecified site
CPT/HCPCS: 83036; 99214

== ENCOUNTER 2023-07-11 08:01 | Outpatient (REF) | payer OTHER, SELFPAY ==
[2023-07-11 08:17] LABS: MANUAL DIFF FLAG NO
[2023-07-11 09:05] LABS: Basophils Absolute Auto 0.1 X10*3/uL (0.0-0.2); Basophils Percent Auto 0.9 % (0-2); Eosinophils Absolute Auto 0.4 X10*3/uL (0.0-0.4); Eosinophils Percent Auto 5.7 % (0-4); Hematocrit 31.9 % (37.0-47.0); Hemoglobin 9.6 g/dl (12.0-16.0); Imm Gran Abs Auto 0.04 X10*3/uL (0.00-0.03); Imm Gran Pct Auto 0.6 % (0.0-0.4); Lymphocytes Absolute Auto 1.7 X10*3/uL (1.2-4.9); Lymphocytes Percent Auto 26.7 % (20-40); Mean Corpuscular HGB Conc 30.1 g/dl (31.0-35.0); Mean Corpuscular Hemoglobin 28.7 pg (27.0-33.0); Mean Corpuscular Volume 95.2 fL (80.0-98.0); Mean Platelet Volume 10.2 fL (9.4-12.3); Monocytes Absolute Auto 0.8 X10*3/uL (0.1-1.2); Monocytes Percent Auto 11.5 % (2-11); Neutrophils Absolute Auto 3.6 x10*3/uL (2.0-8.3); Neutrophils Percent Auto 54.6 % (45-73); Platelet Count 314 X10*3/uL (160-400); Red Blood Count 3.35 X10*6/uL (4.20-5.50); Red Cell Distribution Width 14.9 % (11.0-16.0); White Blood Count 6.5 X10*3/uL (4.8-10.8)
[2023-07-11 10:05] LABS: Alanine Aminotransferase 16 U/L (0-31); Albumin Level 4.1 g/dL (3.5-5.0); Alkaline Phosphatase 110 U/L (39-117); Anion Gap 13 (12-20); Aspartate Amino Transferase 21 U/L (5-31); Bilirubin Total 0.5 mg/dL (0.0-1.0); Blood Urea Nitrogen 36 mg/dL (9-16); Calcium 8.8 mg/dL (8.4-10.2); Carbon Dioxide 26 mmol/L (22-29); Chloride 108 mmol/L (96-108); Cholesterol 146 mg/dL (<200); Estimated Glomerular Filt Rate 30; Glucose Fasting 184 mg/dL (60-99); HDL Cholesterol 62 mg/dL (>40); LDL Cholesterol Calculated 75 mg/dL (<100); Potassium 6.6 mmol/L (3.3-5.1); Sodium 140 mmol/L (135-145); Total Protein 7.9 g/dL (6.5-8.0); Triglycerides 49 mg/dL (<150)
[2023-07-11 10:10] LABS: Thyroid Stimulating Hormone 3.65 uIU/mL (0.32-4.0)
[2023-07-11 10:29] LABS: Estimated Average Glucose 160 mg/dL; Hemoglobin A1c % 7.2 % (<6.0)
== END 2023-07-11 08:02 | disposition home or self-care (01) ==
LOC: HO.LAB 08:01
PROVIDERS: PCP Internal Medicine; Visit Provider Internal Medicine
DX: E78.5 Hyperlipidemia, unspecified (principal); E03.9 Hypothyroidism, unspecified; N28.9 Disorder of kidney and ureter, unspecified; D64.9 Anemia, unspecified; R73.9 Hyperglycemia, unspecified
CPT/HCPCS: 36415; 80053; 80061; 83036; 84443; 85025

== ENCOUNTER 2023-07-12 06:00 | Outpatient (REF) | payer OTHER, SELFPAY ==
[2023-07-12 09:10] LABS: Anion Gap 14 (12-20); Blood Urea Nitrogen 37 mg/dL (9-16); Calcium 8.7 mg/dL (8.4-10.2); Carbon Dioxide 24 mmol/L (22-29); Chloride 107 mmol/L (96-108); Estimated Glomerular Filt Rate 34; Glucose Random 175 mg/dL (60-115); Potassium 6.4 mmol/L (3.3-5.1); Sodium 139 mmol/L (135-145)
== END 2023-07-12 06:01 | disposition home or self-care (01) ==
LOC: HO.LAB 06:00
PROVIDERS: PCP Internal Medicine; Visit Provider Internal Medicine
DX: E87.5 Hyperkalemia (principal)
CPT/HCPCS: 36415; 80048

== ENCOUNTER 2023-07-19 13:04 | Outpatient (REF) | payer OTHER, SELFPAY ==
--- NOTE | ~2023-07-19 | MM_ITS ---
EXAMINATION: MM SCREENING DIGITAL BREAST TOMOSYNTHESIS, BILATERAL CLINICAL INFORMATION: Screening. Asymptomatic. COMPARISON: Mammography: This study is compared with prior exams dating back to 2015. TECHNIQUE: Digital breast tomosynthesis is performed in both the craniocaudal and mediolateral oblique views along with computer-aided detection (CAD). Synthesized 2D images are generated from the tomosynthesis. FINDINGS: There are scattered areas of fibroglandular density (ACR BI-RADS breast composition Category b). There are no significant masses, abnormal calcifications, or other abnormalities. MM/MM tomosynthesis screening BI IMPRESSION: No mammographic evidence of malignancy. ASSESSMENT: BI-RADS BI-RADS 1 - Negative RECOMMENDATION: Routine annual mammography screening. 1 year F/U This examination should not preclude the clinical evaluation of a suspicious palpable abnormality. This patient's information was entered into a reminder system with a target due date for their next mammogram.
--- NOTE | ~2023-07-19 | MM_ITS ---
EXAMINATION: BONE DENSITOMETRY CLINICAL INDICATION: Osteopenia. COMPARISON: This is the patient's baseline examination. TECHNIQUE: Using a [employer] DXA System (software version: 13.1) manufactured by [employer], dual-energy x-ray absorptiometry was performed of the lumbar spine and left hip. The images are of good technical quality. Summary results are attached. FINDINGS: LEFT FEMUR, NECK: BMD 0.568 g/cm2, Z-score -1.1, T-score -3.4, osteoporosis. LEFT FEMUR, TOTAL: BMD 0.615 g/cm2, Z-score -0.9, T-score -3.1, osteoporosis. AP SPINE L1-L4: BMD 0.968 g/cm2, Z-score 0.2, T-score -1.8, osteopenia. IDENTIFIED RISK FACTORS: Early menopause, height loss, bilateral oophorectomy, history of fracture (adult), hysterectomy, osteoporosis, rheumatoid arthritis, secondary osteoporosis. HISTORY OF FRACTURE: Femur, other. MEDICATIONS: None listed. MM/XR DEXA axial skeleton IMPRESSION: 1. DIAGNOSIS: Osteoporosis based on the lowest T-score value of -3.4 in the femoral neck applying World Health Organization criteria. 2. 10-YEAR FRACTURE RISK PREDICTION, FRAX: According to the guidelines, FRAX calculation should only be performed on patients in the osteopenia bone density category. Therefore, FRAX was not performed on this patient. 3. Treatment Recommendations: NOF guidelines recommend consideration for treatment in postmenopausal women and men age 50 and older presenting with the following: -A hip or vertebral (clinical or morphometric) fracture. -T-score less than or equal to -2.5 at the femoral neck or spine after appropriate evaluation to exclude secondary causes. -Low bone mass at the hip or spine and a 10-year fracture probability by FRAX of greater than or equal to 3% for hip fracture or greater than or equal to 20% for major osteoporotic fracture based on the [place] adapted WHO algorithm. 4. Other Recommendations: All treatment decisions require clinical judgment and consideration of individual patient factors, including patient preferences, comorbidities, previous drug use, risk factors not captured in the FRAX model (e.g. frailty, falls, vitamin D deficiency, increased bone turnover, interval significant decline in bone density) and possible under or overestimation of fracture risk by FRAX. Additional medical evaluation for secondary cause of low bone mineral density may be appropriate. FUTURE SCAN RECOMMENDATION: People with diagnosed cases of osteoporosis or at high risk for fracture should have regular bone mineral density tests. For patients eligible for Medicare, routine testing is allowed once every 2 years. The testing frequency can be increased to one year for patients who have rapidly progressing disease, those who are receiving or discontinuing medical therapy to restore bone mass, or have additional risk factors.
== END 2023-07-19 13:05 | disposition home or self-care (01) ==
LOC: HO.MAMMO 13:04
PROVIDERS: PCP Internal Medicine; Visit Provider Internal Medicine
DX: Z12.31 Encounter for screening mammogram for malignant neoplasm of breast (principal); Z13.820 Encounter for screening for osteoporosis; Z78.0 Asymptomatic menopausal state; M85.80 Other specified disorders of bone density and structure, unspecified site
CPT/HCPCS: 77063; 77067; 77080

== ENCOUNTER → 2023-07-19 13:30 | Outpatient (BNV) | payer OTHER, SELFPAY | PROVIDERS: PCP Internal Medicine; Visit Provider Radiology Diagnostic Radiology | DX: Z12.31 Encounter for screening mammogram for malignant neoplasm of breast (principal) | CPT/HCPCS: 77063; 77067; 77080 ==

== ENCOUNTER 2023-07-23 13:49 | Emergency (ER) | payer OTHER, SELFPAY ==
[2023-07-23] VITALS (8 sets, daily range): BP systolic 116–178; BP diastolic 69–83; PULSE 62–80; RESP 15–22; TEMP 36.7–37; O2SAT 96–99; BMI 23.9
--- NOTE | ~2023-07-23 | CT_ITS ---
EXAMINATION: CT ANGIOGRAM HEAD CT ANGIOGRAM NECK CLINICAL INFORMATION: SANCHEZ, blurry vision, dizziness. neck pain. hx cva COMPARISON: CT head 01/27/2021 and MR brain/MRA 09/21/2021 TECHNIQUE: Initial noncontrast bath tester imaging of the head and neck was performed. Noncontrast head CT was also performed. Test bolus sequences followed by intravenous administration 70 mL of Omnipaque 350. Helical imaging was performed in the axial plane from the aortic arch to the skull vertex. Delayed postcontrast imaging of the head was also performed. The data was processed at the x ray technologist's workstation for generation of MIP sequences. Angled MIPs and volume rendered reformatted images were also generated at an offline 3D workstation. Stenoses are assessed in accordance with Patel et al. Quantification of Carotid Stenosis on CT Angiography. AJR 2006. 27(1):13-19. [address] CT examination was performed using dose optimization techniques as appropriate, variously including the following: *Automated exposure control *Adjustment of mA and/or kV according to patient size (this includes techniques or standardized protocols for targeted exams where dose is matched to indication/reason for exam; i.e. extremities or head) *Use of iterative reconstruction technique DLP: 2170.94 mGy-cm FINDINGS: CT HEAD: Mild generalized parenchymal volume loss and patchy white matter disease throughout the supratentorial and infratentorial compartments, nonspecific but presumably moderate chronic microangiopathy. Again seen chronic small vessel infarctions within the bilateral cerebellar hemispheres and chronic lacunar infarcts within the deep kaminski nuclei. Evolution of previously seen punctate acute supratentorial and infratentorial infarcts seen on prior MRI. No new territorial loss of kaminski-white differentiation. No acute intracranial hemorrhage or extra-axial fluid collection. No mass lesion, significant mass effect, or herniation pattern. No pathologic intra-axial enhancement or regional oligemia. Bilateral lens replacements. Paranasal sinuses and mastoid air cells are well aerated. Osseous structures are intact. Mild right TMJ osteoarthrosis. CTA HEAD: No hemodynamically significant stenosis or occlusion in the anterior or posterior circulation. Circumferential calcific plaque along the intracranial internal carotid arteries most pronounced along the carotid siphons without significant luminal narrowing. Mild calcific plaque of the intradural left vertebral artery without significant stenosis. Duplicated anterior communicating artery, a normal anatomic variant. Dolichoectasia of the anterior posterior circulation compatible with chronic underlying hypertension. No aneurysms and no high flow vascular malformations. Timing of the contrast bolus allows assessment of the major dural venous sinuses, which all opacify normally CTA NECK: Suboptimal timing of contrast bolus. Classic 3 vessel branching pattern of the aortic arch. Mild atherosclerosis of the aortic arch and great vessel origins. Origins of the great vessels are widely patent. The common carotid arteries are widely patent. Calcific plaque at the left greater than right carotid bifurcations contributes to mild (less than 50%) luminal narrowing of the left ICA origin without significant stenosis on the right. The left vertebral artery is dominant. The vertebral artery ostia are widely patent. Both vertebral arteries are widely patent throughout their extracranial cervical course. Dilated main pulmonary artery measuring up to 3.3 cm suggestive of pulmonary hypertension. CT NECK: Asymmetric advanced right TMJ osteoarthrosis. Edentulous maxillary alveolar ridge. Carious right mandibular canine tooth. Partially imaged streaky subsegmental atelectasis/scarring within the lingula. Post C4-C5 ACDF changes with solid interbody arthrodesis spanning C4-C6 and fusion across the facet joints at these levels. Reversal of normal cervical lordosis and multilevel spondylitic changes. Coronary artery vascular calcifications. CT/CT angio head neck IMPRESSION: 1. No acute intracranial hemorrhage or edematous territorial infarction. 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 2. No significant stenosis, arterial occlusion, or dissection in the intracranial or extracranial arterial vasculature. 3. Calcific plaque contributes to mild (less than 50%) luminal narrowing of the left ICA origin. 4. 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 5. Dilated main pulmonary artery measuring up to 3.3 cm suggestive of pulmonary hypertension. 6. Asymmetric advanced right TMJ osteoarthrosis. 7. Carious right mandibular canine tooth.
--- NOTE | ~2023-07-23 | XR_ITS ---
EXAMINATION: XR CHEST CLINICAL INFORMATION: Dizziness. COMPARISON: January 27, 2021. TECHNIQUE: Portable AP view of the chest was obtained. FINDINGS: No significant abnormality is noted involving the heart, lungs, mediastinum, or soft tissues. Degenerative changes of the spine with thoracic dextrocurvature. Partially imaged lower cervical anterior fixation plate and screws. XR/XR chest 1V IMPRESSION: No acute finding.
--- NOTE | 2023-07-23 14:08 | PC.NURSE ---
Patient reports increasing neck pain and dizziness. States had a fall in dec that resulted in a broken femur and neck pain.Patient states since the fall her neck issues have caused constant dizziness. Reports over the last month pain and dizziness has gotten worse. Reports numbness in legs fron knee down. Denies chest but states has headaches and sob
--- NOTE | 2023-07-23 14:19 | ED.DIZZY ---
HPI - Dizziness General Chief Complaint: Dizziness Stated Complaint: Dizziness Time Seen by Provider: 07/23/23 13:59 Source: patient, RN notes reviewed and old records reviewed Mode of arrival: EMS Limitations: no limitations History of Present Illness HPI Narrative: 83 yo female with PMHx of obesity, CHF, pneumonia, PE in 2011 not on AC, T2DM presenting to the ED complaining of acute on chronic dizziness worsening over the last week. Dizziness worse with sudden movements. Ambulates with a walker at baseline. Able to ambulate but states feels off balance due to her chronic neuropathy & dizziness. Has remote history of c-spine fusion, now reporting neck pain and tingling when turning her head to the right. Additionally reports headache starting today, not maximal at onset. Denies fever, chills, vision changes, CP, SOB, N/V. Denies trauma or falls. MD elicited complaint: dizziness Related Data Home Medications Medication Instructions Recorded Confirmed carbamazepine 100 mg chewable 100 mg PO BID 02/14/23 06/14/23 tablet aspirin 81 mg tablet,delayed 81 mg PO DAILY 06/14/23 06/14/23 release Previous Rx's Medication Instructions Recorded blood sugar diagnostic ([employer] #100 ea 03/07/22 Lite Strips) metformin 500 mg tablet 500 mg PO BID #180 tabs 03/09/23 lancets 28 gauge (FreeStyle ##100 04/29/23 Lancets) duloxetine 20 mg capsule,delayed 20 mg PO BID #180 caps 06/13/23 release melatonin 5 mg tablet 10 mg PO BEDTIME #90 tabs 06/13/23 meloxicam 15 mg tablet 15 mg PO DAILY #30 tabs 06/14/23 furosemide 20 mg tablet 20 mg PO DAILY #30 tabs 07/11/23 tizanidine 4 mg capsule 8 mg PO BEDTIME muscle spasticity 07/11/23 #60 caps cefuroxime axetil 250 mg tablet 500 mg PO BID #14 tabs 07/23/23 Allergies Allergy/AdvReac Type Severity Reaction Status Date / Time levofloxacin [From LEVAQUIN] Allergy Intermediate RASH Verified 06/14/23 08:33 eszopiclone [From LUNESTA] Allergy Mild HALLUCINATI Verified 06/14/23 08:33 ONS zolpidem [Ambien] Allergy Unknown sleep Verified 06/14/23 08:33 walking meperidine [Meperidine] AdvReac Intermediate hallucinati Verified 06/14/23 08:33 ons pregabalin [From LYRICA] AdvReac Unknown AGITATION Verified 06/14/23 08:33 trazodone [TRAZODONE] AdvReac Unknown AGITATION Verified 06/14/23 08:33 Review of Systems Review of Systems: Constitutional: No Fever, No Chills, No Fatigue, No Malaise ENT/Mouth: No Hearing loss, No Ear Pain, No Nasal Congestion, No Sinus Pain, No Hoarseness Eyes: No Eye Pain, No Swelling, No Redness, No Foreign Body, No Discharge, No Vision Changes Cardiovascular: No Chest Pain, No SOB, No Edema, No Palpitations Respiratory: No Cough, No Sputum, No Wheezing, No Dyspnea Gastrointestinal: No Nausea, No Vomiting, No Diarrhea, No Constipation, No Abdominal pain Genitourinary: No irregular bleeding, No Dysuria, No Urinary Frequency, No Hematuria Musculoskeletal: No joint pain, No Myalgias, No Joint Swelling, + neck pain Skin: No Skin Lesions, No rash Neuro: No Weakness, + Numbness, + Paresthesias, No Loss of Consciousness, + Dizziness, + Headache Yes all other systems are reviewed and are negative Neurologic: Denies Abnormal speech present [facility] Past Medical History Attestation statement: The following information was validated with the patient. Source: old records reviewed Medical History Congestive heart failure Fracture, ribs Obesity Pneumonia Pulmonary embolism Type 2 diabetes mellitus with hyperglycemia Type 2 diabetes mellitus with obesity Surgical History H/O prior ablation treatment History of cervical spinal surgery History of hysterectomy History of surgery on lower extremity Family History Family History Father Diabetes CVD (cardiovascular disease) Mother No problems noted. Social History Social History Housing: Apartment Alcohol intake: never Patient Tobacco Use Status: Never used Tobacco Tobacco use type: Cigarette Smoked in Last 30 Days: No e-Cigarette/Vaping Use: Never Used Second Hand Smoke Exposure: No Use of substances other than those prescribed or required for medical reasons: No Advance Directives: Yes Advance Directives on File: Yes Advance Directives Date on File: 01/27/21 service: No Current occupational status: retired Current occupational exposures/hazards: No Cognitive needs: Yes (walker/cane) Hearing needs: No Vision needs: Yes (glasses) Physical Exam Vital Signs: Vital Signs: Last Vital Signs Temp 98.6 F 07/23/23 22:40 Pulse 62 07/23/23 22:40 Resp 15 07/23/23 22:40 BP 150/81 H 07/23/23 22:40 Pulse Ox 96 07/23/23 22:40 O2 Del Method Room Air 07/23/23 19:19 BMI result Body Mass Index 23.9 Vital signs notable for hypertension Const: General: cooperative, healthy appearing, no acute distress, alert and awake Orientation/consciousness: patient oriented x3 Limitations: no limitations HEENT: Head: Yes normal to inspection and Yes atraumatic Ears: hearing grossly normal bilaterally General nose exam: Normal external nose present Face and sinus: Yes normal facial exam Throat: Yes posterior oropharynx normal and Yes uvula midline Eyes: General: appearance normal, both eyes and all related structures Pupils: Equal, round and reactive pupils present EOM: EOMs intact bilaterally Neck: Neck: Yes normal visual inspection and Yes no meningeal signs Resp: Effort & Inspection: normal respiratory effort and no respiratory distress Auscultation: clear to auscultation bilaterally Cardio: Rate: regular rate Heart sounds: S1 normal heart sound present and S2 normal heart sound present GI: Inspection: Yes normal to inspection Palpation (GI): Soft to palpation, nontender, no guarding and not rigid Back/Spine/Pelvis: Other: No midline cervical/thoracic/lumbar spinous tenderness/step-off or deformity. Skin: Rashes: no rashes Wounds: no wounds Neuro: General: patient oriented x3, gait normal (at baseline w/walker, no ataxia), tone normal, moves all extremities, no meningeal signs, no focal motor deficits and CN's II-XI intact bilaterally Cranial nerves: Yes CN's II-XII intact bilaterally and Yes Equal, round and reactive pupils present Cognition (Neuro): normal cognition Speech: No Abnormal speech present Gait exam (Neuro): Normal gait present Motor exam (neuro): 5/5 motor strength present throughout and no tremor noted Extrem: General: Yes normal to inspection and Yes normal gait Course Course Course Narrative: -1616--no leukocytosis. H&H at patient's base. Chronic CKD. Troponin 20.3 > likely from CKD, patient denies CP >will obtain 3hr repeat -UA infected > IV Rocephin ordered XR chest 1V IMPRESSION: No acute finding. ? -orthostatic vital signs negative -1630--ED care transferred to [facility] pending CTA head and neck and repeat troponin Reevaluation(s) Reevaluation #1: Repeat troponin is negative, unlikely ACS CT/CTA of the head and neck reveals no acute intracranial hemorrhage or edematous territorial infarct, chronic infarcts as noted in radiologist impression. No evidence of stenosis or arterial inclusion, there is calcific plaques of the left ICA with mild luminal narrowing, less than 50%, dolicoectasia with chronic underlying hypertension. No evidence of ICH, or CVA. Symptoms are chronic in nature. Advised outpatient follow-up with her primary care provider. Patient was offered physical therapy/case management evaluation she however declines and would like to be discharged home. Will send prescription for cefuroxime to pharmacy for management of urinary tract infection. Time: 21:30 Medications Administered Discontinued Medications Generic Name Dose Route Start Last Admin Trade Name Freq PRN Reason Stop Dose Admin Sodium Chloride 500 mls @ 999 mls/hr 07/23/23 15:00 07/23/23 15:52 Ns IV 07/23/23 15:30 Infused .Q31M REGGIE Infusion Ceftriaxone Sodium 1 gm/ 50 mls @ 100 mls/hr 07/23/23 16:17 07/23/23 19:09 Sodium Chloride IV 07/23/23 16:46 Infused ONCE ONE Infusion Iohexol 100 ml 07/23/23 19:00 07/23/23 19:01 Iohexol 350 Mg/Ml 100 Ml Infus..Btl IV 07/23/23 19:01 70 ml ONCE ONE Administration Meclizine HCl 25 mg 07/23/23 14:53 07/23/23 15:19 Meclizine Hcl 25 Mg Tablet PO 07/23/23 14:54 25 mg ONCE ONE Administration Medical Decision Making Medical Decision Making [facility] Narrative: 83 yo female with PMHx of obesity, CHF, pneumonia, PE in 2011 not on AC, T2DM presenting to the ED complaining of acute on chronic dizziness worsening over the last week. Vital signs notable for mild HTN. Neuro exam nonfocal. Strength intact. NV intact. Ambulating with slow, steady gait, using walker. No ataxia. Concern for acute on chronic dizziness vs vertigo vs complicated SANCHEZ vs migraine vs hypertension vs cervical radiculopathy vs ?c spine fracture vs diabetic neuropathy. Lower suspicion for infectious etiology UTI vs PNA. Unlikely ACS, arrhythmia, electrolyte abnormality, CVA/TIA with chronicity of symptoms, ICH, intracranial mass, PE. Plan: labs, UA, imaging, IVF, orthostatics, CTA head and neck, reassess Please refer to course for remaining clinical decision making, interpretation of labs/imaging results, and discussions with consultants and/or family members. Differential Diagnosis Differential Diagnoses: The differential diagnosis associated with the presentation includes As above Admission/Observation Consideration of admission/observation: Escalation of care including admission/observation considered Lab Data MDM Lab Attestation statement: I reviewed the patient's lab results. As above. 07/23/23 15:17 07/23/23 15:17 Labs: Lab Results 07/23/23 07/23/23 07/23/23 Range/Units 15:17 15:17 15:17 WBC 6.7 (4.8-10.8) X10*3/uL RBC 3.68 L (4.20-5.50) X10*6/uL Hgb 10.6 L (12.0-16.0) g/dl Hct 33.7 L (37.0-47.0) % MCV 91.6 (80.0-98.0) fL MCH 28.8 (27.0-33.0) pg MCHC 31.5 (31.0-35.0) g/dl RDW 13.3 (11.0-16.0) % Plt Count 329 (160-400) X10*3/uL MPV 9.9 (9.4-12.3) fL Immature Gran % (Auto) 0.5 H (0.0-0.4) % Neut % (Auto) 51.9 (45-73) % Lymph % (Auto) 32.3 (20-40) % [place] % (Auto) 8.7 (2-11) % Eos % (Auto) 5.7 H (0-4) % Baso % (Auto) 0.9 (0-2) % Lymph # (Auto) 2.2 (1.2-4.9) X10*3/uL [place] # (Auto) 0.6 (0.1-1.2) X10*3/uL Eos # (Auto) 0.4 (0.0-0.4) X10*3/uL Baso # (Auto) 0.1 (0.0-0.2) X10*3/uL Abs Immat Gran (auto) 0.03 (0.00-0.03) X10*3/uL Absolute Neuts (auto) 3.5 (2.0-8.3) x10*3/uL Absolute Nucleated RBC 0.000 (0.0-0.012) X10*3/uL Nucleated RBC % (auto) 0.0 (0.0-0.2) /100WBC PT 11.0 L (11.1-13.3) SEC INR 0.9 (0.9-1.1) Sodium 140 (135-145) mmol/L Potassium 4.7 D (3.3-5.1) mmol/L Chloride 104 (96-108) mmol/L Carbon Dioxide 27 (22-29) mmol/L Anion Gap 14 (12-20) BUN 33 H (9-16) mg/dL Creatinine 1.46 H (0.5-1.4) mg/dL Estim Creat Clear Calc 25.6 Estimated GFR 34 Random Glucose 163 H (60-115) mg/dL Calcium 9.5 D (8.4-10.2) mg/dL Magnesium 3.4 H (1.6-2.6) mg/dL Total Bilirubin 0.7 (0.0-1.0) mg/dL Direct Bilirubin 0.3 (0.0-0.5) mg/dL AST 16 (5-31) U/L ALT 11 (0-31) U/L Alkaline Phosphatase 127 H (39-117) U/L Troponin I High Sens (<3.5-17.0) ng/L Total Protein 8.1 H (6.5-8.0) g/dL Albumin 4.3 (3.5-5.0) g/dL Urine Color Urine Appearance Urine pH (5.0-9.0) Ur Specific [place] (1.005-1.025) Urine Protein (Neg-Trace) mg/dL Urine Glucose (UA) (Negative) mg/dL Urine Ketones (Negative) mg/dL Urine Blood (Negative) Urine Nitrite (Negative) Ur Leukocyte Esterase (Negative) Urine RBC (0-2) /HPF Urine WBC (0-5) /HPF Ur Squamous Epith Cells (0-2) /HPF Urine Bacteria (None Seen) Hyaline Casts (0-2) /LPF 07/23/23 07/23/23 07/23/23 Range/Units 15:17 15:41 18:04 WBC (4.8-10.8) X10*3/uL RBC (4.20-5.50) X10*6/uL Hgb (12.0-16.0) g/dl Hct (37.0-47.0) % MCV (80.0-98.0) fL MCH (27.0-33.0) pg MCHC (31.0-35.0) g/dl RDW (11.0-16.0) % Plt Count (160-400) X10*3/uL MPV (9.4-12.3) fL Immature Gran % (Auto) (0.0-0.4) % Neut % (Auto) (45-73) % Lymph % (Auto) (20-40) % [place] % (Auto) (2-11) % Eos % (Auto) (0-4) % Baso % (Auto) (0-2) % Lymph # (Auto) (1.2-4.9) X10*3/uL [place] # (Auto) (0.1-1.2) X10*3/uL Eos # (Auto) (0.0-0.4) X10*3/uL Baso # (Auto) (0.0-0.2) X10*3/uL Abs Immat Gran (auto) (0.00-0.03) X10*3/uL Absolute Neuts (auto) (2.0-8.3) x10*3/uL Absolute Nucleated RBC (0.0-0.012) X10*3/uL Nucleated RBC % (auto) (0.0-0.2) /100WBC PT (11.1-13.3) SEC INR (0.9-1.1) Sodium (135-145) mmol/L Potassium (3.3-5.1) mmol/L Chloride (96-108) mmol/L Carbon Dioxide (22-29) mmol/L Anion Gap (12-20) BUN (9-16) mg/dL Creatinine (0.5-1.4) mg/dL Estim Creat Clear Calc Estimated GFR Random Glucose (60-115) mg/dL Calcium (8.4-10.2) mg/dL Magnesium (1.6-2.6) mg/dL Total Bilirubin (0.0-1.0) mg/dL Direct Bilirubin (0.0-0.5) mg/dL AST (5-31) U/L ALT (0-31) U/L Alkaline Phosphatase (39-117) U/L Troponin I High Sens 20.3 H 19.5 H (<3.5-17.0) ng/L Total Protein (6.5-8.0) g/dL Albumin (3.5-5.0) g/dL Urine Color Yellow Urine Appearance Cloudy Urine pH 7.0 (5.0-9.0) Ur Specific [place] 1.010 (1.005-1.025) Urine Protein 30 (1+) H (Neg-Trace) mg/dL Urine Glucose (UA) 100 H (Negative) mg/dL Urine Ketones Negative (Negative) mg/dL Urine Blood Negative (Negative) Urine Nitrite Negative (Negative) Ur Leukocyte Esterase Moderate (2+) H (Negative) Urine RBC 0-2 (0-2) /HPF Urine WBC 21-50 H (0-5) /HPF Ur Squamous Epith Cells 0-2 (0-2) /HPF Urine Bacteria 4+ (None Seen) Hyaline Casts 0-2 (0-2) /LPF Independent Interpretation I performed an independent interpretation of an: EKG (EKG sinus rhythm with sinus arrhythmia at a rate of 67. Left bundle-branch block. No significant change when compared to prior. No STEMI), Plain X-Ray and CT Scan Radiology Impression Discussion of test interpretation with radiology: I have reviewed the radiologist's reading. Radiologist Impression: CT/CT angio head neck IMPRESSION: 1.? No acute intracranial hemorrhage or edematous territorial infarction. 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 2.? No significant stenosis, arterial occlusion, or dissection in the intracranial or extracranial arterial vasculature. 3.? Calcific plaque contributes to mild (less than 50%) luminal narrowing of the left ICA origin. 4.? 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 5.? Dilated main pulmonary artery measuring up to 3.3 cm suggestive of pulmonary hypertension. 6.? Asymmetric advanced right TMJ osteoarthrosis. 7.? Carious right mandibular canine tooth. Independent Historian Clinical information obtained from an independent historian. History obtained from or confirmed by: EMS External Record Review External record reviewed: Inpatient record, Office record, Outpatient record, Prior outpatient labs, Prior outpatient radiology, Primary care record and Outside ED record Tests considered The following testing was considered but not selected: As above Prescription Management I considered prescription management with: Other Chronic Conditions Patient?s care impacted by: Diabetes and Hypertension Discharge Plan Discharge Clinical Impression: UTI (urinary tract infection), Dizziness Patient Disposition: Home, Self-Care Additional Instructions: Please contact your primary care provider and arrange follow-up visit within 1-3 days. You may return back to emergency department any new or worsening symptoms or concerns. your CT scan does not show any evidence of stroke, or blockage of your vessels. You were found to have a urinary tract infection today, I have sent a prescription for antibiotic to your pharmacy, please begin taking this tomorrow morning. Prescriptions: New cefuroxime axetil 250 mg tablet 500 mg PO BID Qty: 14 0RF No Action (DME) FreeStyle Lite Strips Strip See Rx Instructions .Route Qty: 100 6RF Rx Instructions: Test 3 times Daily metformin 500 mg tablet 500 mg PO BID Qty: 180 8RF (DME) lancets [FreeStyle Lancets] 28 gauge misc See Rx Instructions .ROUTE .COMPLEX Qty: 100 0RF Dose Instruction: USE DIRECTED TO CHECK BLOOD SUGAR TWICE A DAY Rx Instructions: USE DIRECTED TO CHECK BLOOD SUGAR TWICE A DAY duloxetine 20 mg capsule,delayed release(DR/EC) 20 mg PO BID Qty: 180 0RF melatonin 5 mg tablet 10 mg PO BEDTIME Qty: 90 0RF tizanidine 4 mg capsule 8 mg PO BEDTIME Qty: 60 0RF furosemide 20 mg tablet 20 mg PO DAILY Qty: 30 3RF carbamazepine 100 mg tablet,chewable 100 mg PO BID aspirin 81 mg tablet,delayed release (DR/EC) 81 mg PO DAILY meloxicam 15 mg tablet 15 mg PO DAILY Qty: 30 9RF Referrals: Jin Arshad MD [Primary Care Provider] -
--- NOTE | 2023-07-23 14:53 | ECG_ITS ---
Test Reason : dizzyness Blood Pressure : / mmHG Vent. Rate : 067 BPM Atrial Rate : 067 BPM P-R Int : 206 ms QRS Dur : 148 ms QT Int : 426 ms P-R-T Axes : 036 -30 139 degrees QTc Int : 450 ms Sinus rhythm with marked sinus arrhythmia Left axis deviation Left bundle branch block Abnormal ECG When compared with ECG of 22-FEB-2022 19:13, No significant change was found Referred By: Jonelle Rojas Electronically Signed By:KIM FOSTER
[2023-07-23] MEDS: 0.9 % Sodium Chloride 500 ML 999 ML IV (15:19)
[2023-07-23] MEDS: Meclizine HCl 25 MG TABLET PO (15:19)
[2023-07-23 15:23] LABS: MANUAL DIFF FLAG NO
[2023-07-23 15:30] LABS: Basophils Absolute Auto 0.1 X10*3/uL (0.0-0.2); Basophils Percent Auto 0.9 % (0-2); Eosinophils Absolute Auto 0.4 X10*3/uL (0.0-0.4); Eosinophils Percent Auto 5.7 % (0-4); Hematocrit 33.7 % (37.0-47.0); Hemoglobin 10.6 g/dl (12.0-16.0); Imm Gran Abs Auto 0.03 X10*3/uL (0.00-0.03); Imm Gran Pct Auto 0.5 % (0.0-0.4); Lymphocytes Absolute Auto 2.2 X10*3/uL (1.2-4.9); Lymphocytes Percent Auto 32.3 % (20-40); Mean Corpuscular HGB Conc 31.5 g/dl (31.0-35.0); Mean Corpuscular Hemoglobin 28.8 pg (27.0-33.0); Mean Corpuscular Volume 91.6 fL (80.0-98.0); Mean Platelet Volume 9.9 fL (9.4-12.3); Monocytes Absolute Auto 0.6 X10*3/uL (0.1-1.2); Monocytes Percent Auto 8.7 % (2-11); Neutrophils Absolute Auto 3.5 x10*3/uL (2.0-8.3); Neutrophils Percent Auto 51.9 % (45-73); Platelet Count 329 X10*3/uL (160-400); Red Blood Count 3.68 X10*6/uL (4.20-5.50); Red Cell Distribution Width 13.3 % (11.0-16.0); White Blood Count 6.7 X10*3/uL (4.8-10.8)
[2023-07-23 15:31] LABS: INTERNATIONAL NORM RATIO 0.9 (0.9-1.1)
--- NOTE | 2023-07-23 15:41 | MHC.EDTECH ---
THIS PCT ASSUMED CARE OF PT AT 1500 ,ORTHOSTATICS VITALS SIGN TAKEN AND URINE SAMPLE COLLECTED AND SENT TO LAB .
[2023-07-23 15:48] LABS: Alanine Aminotransferase 11 U/L (0-31); Albumin Level 4.3 g/dL (3.5-5.0); Alkaline Phosphatase 127 U/L (39-117); Anion Gap 14 (12-20); Aspartate Amino Transferase 16 U/L (5-31); Bilirubin Direct 0.3 mg/dL (0.0-0.5); Bilirubin Total 0.7 mg/dL (0.0-1.0); Blood Urea Nitrogen 33 mg/dL (9-16); Calcium 9.5 mg/dL (8.4-10.2); Carbon Dioxide 27 mmol/L (22-29); Chloride 104 mmol/L (96-108); Creatinine Clr Calc Pharmacy 25.6; Estimated Glomerular Filt Rate 34; Glucose Random 163 mg/dL (60-115); Magnesium 3.4 mg/dL (1.6-2.6); Potassium 4.7 mmol/L (3.3-5.1); Sodium 140 mmol/L (135-145); Total Protein 8.1 g/dL (6.5-8.0)
[2023-07-23 15:54] LABS: Troponin-I High Sensitivity 20.3 ng/L (<3.5-17.0)
[2023-07-23 15:57] LABS: Appearance Urine Cloudy; Color Urine Yellow; Glucose Urine UA 100 mg/dL (Negative); Leukocyte Esterase Urine Moderate (2+) (Negative); Nitrite Urine Negative (Negative); UMIC TRIGGER UACC YES; Urine Blood Negative (Negative); Urine Ketones Negative (Negative); Urine Protein 30 (1+) mg/dL (Neg-Trace)
[2023-07-23 16:00] LABS: Bacteria Urine 4+ (None Seen); Hyaline Casts Urine 0-2 /LPF (0-2); RBC Urine 0-2 /HPF (0-2); Squamous Epithelial Cell Urine 0-2 /HPF (0-2); UACC Culture Trigger YES; WBC Urine 21-50 /HPF (0-5)
[2023-07-23] MEDS: cefTRIAXone sodium 1 GM in 0.9 % Sodium Chloride 50 ML IV (16:47)
[2023-07-23 18:39] LABS: Troponin-I High Sensitivity 19.5 ng/L (<3.5-17.0)
[2023-07-23] MEDS: iohexoL 350 MG/ML 100 ML INFUS..BTL IV (19:01)
--- NOTE | 2023-07-23 19:19 | PC.NURSE ---
Assumed care of patient at 1900. PT resting in bed quietly, alert and oriented. Reports continued feeling of dizziness, room bouncing that is now at a slower pace . Temp 98.0f, 02 99% on RA, pulse 69, and bp 178/81 map 113. Bed castellano provided to pt as she reports not feeling comfortable pivoting to commode. Plan of care on going.
--- NOTE | 2023-07-23 20:09 | PC.NURSE ---
This RN spoke with Yoselin Noe's daughter who requested an updated on pt status. Informed [facility] that we were awaiting providers update to plan of care based on reading of CT scan.
--- NOTE | 2023-07-23 20:21 | PC.NURSE ---
PT reporting IV site pain. IV intact, and patent. Patient was laying on IV causing it to lift skin. Repositioned and secured with new transparent film dressing.
== END 2023-07-24 00:02 | disposition home or self-care (01) ==
PROVIDERS: Physician Assistant; Emergency Provider Emergency Medicine; PCP Internal Medicine
DX: N39.0 Urinary tract infection, site not specified (principal); R42 Dizziness and giddiness; G62.9 Polyneuropathy, unspecified; I49.8 Other specified cardiac arrhythmias; M54.2 Cervicalgia; H53.8 Other visual disturbances; R51.9 Headache, unspecified; Z79.899 Other long term (current) drug therapy
CPT/HCPCS: 36415; 70496; 70498; 71045; 80048; 80076; 81001; 83735; 84484; 85025; 85610; 87086; 87088; 87186; 93005; 96361; 96365; 96366; 99284; 99285; J0696; Q9967

== ENCOUNTER 2023-08-23 12:17 | Outpatient (REF) | payer OTHER, SELFPAY | END 2023-08-23 12:18 | disposition home or self-care (01) | LOC: HO.LAB 12:17 | PROVIDERS: Absent Provider Internal Medicine; PCP Internal Medicine; Visit Provider Internal Medicine Nephrology | DX: E11.22 Type 2 diabetes mellitus with diabetic chronic kidney disease (principal); N18.32 Chronic kidney disease, stage 3b; E87.5 Hyperkalemia | CPT/HCPCS: 36415; 80048; 80051; 81001; 82040; 82043; 82306; 82310; 82565; 82570; 83735; 83970; 84100; 84156; 84520; 85025 ==

== ENCOUNTER 2023-10-17 13:38 | Outpatient (REF) | payer OTHER, SELFPAY ==
[2023-10-17 13:50] LABS: MANUAL DIFF FLAG NO
[2023-10-17 14:15] LABS: Basophils Absolute Auto 0.1 X10*3/uL (0.0-0.2); Basophils Percent Auto 0.9 % (0-2); Eosinophils Absolute Auto 0.2 X10*3/uL (0.0-0.4); Eosinophils Percent Auto 2.6 % (0-4); Hematocrit 32.3 % (37.0-47.0); Hemoglobin 9.7 g/dl (12.0-16.0); Imm Gran Abs Auto 0.09 X10*3/uL (0.00-0.03); Lymphocytes Absolute Auto 1.9 X10*3/uL (1.2-4.9); Lymphocytes Percent Auto 19.8 % (20-40); Mean Corpuscular Hemoglobin 25.6 pg (27.0-33.0); Mean Corpuscular Volume 85.2 fL (80.0-98.0); Mean Platelet Volume 9.8 fL (9.4-12.3); Monocytes Absolute Auto 0.8 X10*3/uL (0.1-1.2); Neutrophils Absolute Auto 6.3 x10*3/uL (2.0-8.3); Neutrophils Percent Auto 66.7 % (45-73); Platelet Count 346 X10*3/uL (160-400); Red Blood Count 3.79 X10*6/uL (4.20-5.50); Red Cell Distribution Width 14.9 % (11.0-16.0); White Blood Count 9.4 X10*3/uL (4.8-10.8)
[2023-10-17 15:43] LABS: Alanine Aminotransferase 11 U/L (0-31); Albumin Level 4.1 g/dL (3.5-5.0); Alkaline Phosphatase 86 U/L (39-117); Anion Gap 12 (12-20); Aspartate Amino Transferase 17 U/L (5-31); Bilirubin Total 0.5 mg/dL (0.0-1.0); Blood Urea Nitrogen 36 mg/dL (9-16); Calcium 8.8 mg/dL (8.4-10.2); Carbon Dioxide 27 mmol/L (22-29); Chloride 105 mmol/L (96-108); Cholesterol 112 mg/dL (<200); Estimated Glomerular Filt Rate 37; Glucose Fasting 167 mg/dL (60-99); HDL Cholesterol 47 mg/dL (>40); LDL Cholesterol Calculated 54 mg/dL (<100); Potassium 6.1 mmol/L (3.3-5.1); Sodium 138 mmol/L (135-145); Thyroid Stimulating Hormone 3.35 uIU/mL (0.32-4.0); Total Protein 8.1 g/dL (6.5-8.0); Triglycerides 59 mg/dL (<150)
== END 2023-10-17 13:39 | disposition home or self-care (01) ==
LOC: HO.LAB 13:38
PROVIDERS: PCP Internal Medicine; Visit Provider Internal Medicine
DX: N28.9 Disorder of kidney and ureter, unspecified (principal); D64.9 Anemia, unspecified; E03.9 Hypothyroidism, unspecified; E78.5 Hyperlipidemia, unspecified
CPT/HCPCS: 36415; 80053; 80061; 84443; 85025

== ENCOUNTER 2023-10-17 14:02 | Outpatient (AMB) | payer OTHER, SELFPAY ==
[2023-10-17 14:07] VITALS: BP 140/68; PULSE 70; O2SAT 100; BMI 25.4
--- NOTE | 2023-10-17 14:07 | A.OFFPC_ITS ---
Vital Signs 10/17/23 14:07 Height 5 ft 4 in Weight 148 lb BMI 25.4 BP 140/68 H Blood Pressure Location Lt brachial Position Sitting Pulse 70 Pulse Source Pulse Oximeter Pulse Oximetry (%) 100 Oxygen Delivery Method Room Air Intake Visit Reasons: 3 Months F/U-missed 09/13/23 appt Chemical Treatment Operator Required: No Distribution Associate: Present Accompanied by: Daughter Allergies levofloxacin [From LEVAQUIN] Allergy (Intermediate, Verified 10/17/23 14:08) RASH eszopiclone [From LUNESTA] Allergy (Mild, Verified 10/17/23 14:08) HALLUCINATIONS zolpidem [Ambien] Allergy (Unknown, Verified 10/17/23 14:08) sleep walking meperidine [Meperidine] Adverse Reaction (Intermediate, Verified 10/17/23 14:08) hallucinations pregabalin [From LYRICA] Adverse Reaction (Unknown, Verified 10/17/23 14:08) AGITATION trazodone [TRAZODONE] Adverse Reaction (Unknown, Verified 10/17/23 14:08) AGITATION Medication List - Last Reconciled 10/18/23 by Jin Arshad MD aspirin 81 mg PO DAILY blood sugar diagnostic (FreeStyle Lite Strips) Test 3 times Daily carbamazepine 100 mg PO BID cefuroxime axetil 500 mg (2 x 250 mg) PO BID duloxetine 20 mg PO BID furosemide 20 mg PO DAILY lancets (FreeStyle Lancets) USE DIRECTED TO CHECK BLOOD SUGAR TWICE A DAY melatonin 10 mg (2 x 5 mg) PO BEDTIME meloxicam 15 mg PO DAILY tizanidine 8 mg (2 x 4 mg) PO BEDTIME Tobacco use date assessed: 06/14/23 Fall risk assessment: 1 Fall in past year Last assessed Fall Risk: 10/17/23 Dental Screening Dental Screen Date: 10/17/23 Did you have a dental visit in the last 12 months?: Yes Did you have a dental problem in the last 6 months where you did not have access to dental care?: No Was dental information given to patient?: Patient has dentist HPI 3 Months F/U-missed 09/13/23 appt HPI Details had an admission to [facility] [place] with near syncope; unclear if this was cardiac or possible a Sz; she has both a enrollment manager and a neurologist for f/u [facility] Medical History Fracture, ribs Obesity Type 2 diabetes mellitus with obesity Pneumonia Type 2 diabetes mellitus with hyperglycemia Pulmonary embolism Congestive heart failure Surgical History History of surgery on lower extremity H/O prior ablation treatment History of cervical spinal surgery History of hysterectomy Family History Father Diabetes CVD (cardiovascular disease) Mother No problems noted. Social History Housing: Apartment Alcohol intake: never Patient Tobacco Use Status: Never used Tobacco Tobacco use type: Cigarette e-Cigarette/Vaping Use: Never Used Second Hand Smoke Exposure: No Advance Directives Date on File: 01/27/21 service: No Current occupational status: retired Current occupational exposures/hazards: No Cognitive needs: Yes (walker/cane) Hearing needs: No Vision needs: Yes (glasses) Questionnaire Thrive Questionnaire Date Thrive assessed: 02/14/23 MARCELLA-7 AMB Questionnaire MARCELLA-7 Date MARCELLA - 7 assessed: 02/14/23 Source: Developed by Drs. Tim Hi, Yoselin Shahid, Brody Garcia and colleagues, with an educational trista from [employer] Review of Systems Const Denies chills, Denies headache(s) and Denies weight loss ENT Denies headache(s) Card Denies chest pain, Denies syncope, Denies irregular heart rhythm and Denies dyspnea Resp Denies chest congestion, Denies cough and Denies dyspnea GI Denies abdominal pain, Denies change in stool character, Denies nausea and Denies vomiting Musc Denies deformity and Denies joint swelling Neuro Denies syncope and Denies headache(s) Physical exam (Primary Care) Vital Signs: Last Vital Signs Pulse 70 10/17/23 14:07 BP 140/68 H 10/17/23 14:07 Pulse Ox 100 10/17/23 14:07 Oxygen Delivery Method Room Air 10/17/23 14:07 BMI result Body Mass Index 25.4 Tobacco/Smoking Status: Tobacco use Status Tobacco use date assessed 06/14/23 10/17/23 14:09 Patient Tobacco Use Status Never used Tobacco 10/17/23 14:09 Tobacco use type Cigarette 10/17/23 14:09 e-Cigarette/Vaping Use Never Used 10/17/23 14:09 Thrive Assessment: Date of Thrive Assessment Date Thrive assessed 02/14/23 10/17/23 14:09 Const General: cooperative, comfortable, no acute distress and alert Neck Neck: Yes no lymphadenopathy Thyroid: Thyroid normal Resp Effort & Inspection: normal respiratory effort Auscultation: clear to auscultation bilaterally Percussion: percussion normal Cardio Jugular venous distension: no JVD Palpation: normal PMI Rate: regular rate Rhythm: regular rhythm Heart sounds: S1 normal heart sound present and S2 normal heart sound present GI Inspection: Yes normal to inspection Palpation (GI): No hepatosplenomegaly present Skin General skin exam: no rashes or lesions noted Extrem General: Yes no clubbing, cyanosis or edema Assessment and Plan Assessment & Plan (1) Near syncope: Code(s): R55 - Syncope and collapse Plan: per neuro and card Medications: Refilled blood sugar diagnostic (FreeStyle Lite Strips) Test 3 times Daily 100 ea 6RF E11.65 - Type 2 diabetes mellitus with hyperglycemia Coding Level of Care Code Est Pt Level 3 (43384) Diagnoses Near syncope R55
== END 2023-10-17 14:59 | disposition home or self-care (01) ==
PROVIDERS: PCP Internal Medicine; Visit Provider Internal Medicine
DX: R55 Syncope and collapse (principal)
CPT/HCPCS: 99213

== ENCOUNTER 2024-03-26 12:54 | Outpatient (AMB) | payer OTHER, SELFPAY ==
[2024-03-26 13:17] VITALS: BP 132/80; PULSE 84; O2SAT 97; BMI 31.5
--- NOTE | 2024-03-26 13:17 | MHC.PC.OV ---
Vital Signs 03/26/24 13:17 Height 4 ft 9.48 in Weight 148 lb 2 oz BMI 31.5 BP 132/80 Blood Pressure Location Lt brachial Position Sitting Pulse 84 Pulse Source Pulse Oximeter Pulse Oximetry (%) 97 Oxygen Delivery Method Room Air Intake Visit Reasons: 3M Follow up Licensed Practical Nurse Required: No Accompanied by: closed friend Allergies levofloxacin [From LEVAQUIN] Allergy (Intermediate, Verified 03/26/24 13:24) RASH eszopiclone [From LUNESTA] Allergy (Mild, Verified 03/26/24 13:24) HALLUCINATIONS zolpidem [Ambien] Allergy (Unknown, Verified 03/26/24 13:24) sleep walking meperidine [Meperidine] Adverse Reaction (Intermediate, Verified 03/26/24 13:24) hallucinations pregabalin [From LYRICA] Adverse Reaction (Unknown, Verified 03/26/24 13:24) AGITATION trazodone [TRAZODONE] Adverse Reaction (Unknown, Verified 03/26/24 13:24) AGITATION Medication List - Last Reconciled 03/26/24 by Jocelyn Hickey MD aspirin 81 mg PO DAILY blood sugar diagnostic (FreeStyle Lite Strips) Test 3 times Daily carvedilol 6.25 mg PO BID clopidogrel 75 mg PO DAILY duloxetine 20 mg PO BID furosemide 20 mg PO DAILY insulin glargine (Lantus Solostar U-100 Insulin) 20 units subcut QAM lancets (FreeStyle Lancets) USE DIRECTED TO CHECK BLOOD SUGAR TWICE A DAY melatonin 10 mg (2 x 5 mg) PO BEDTIME meloxicam 15 mg PO DAILY mirtazapine 15 mg PO BEDTIME rosuvastatin 10 mg PO DAILY tizanidine 8 mg (2 x 4 mg) PO BEDTIME Tobacco use date assessed: 03/26/24 Fall risk assessment: No Falls in past year Last assessed Fall Risk: 03/26/24 Dental Screening Dental Screen Date: 03/26/24 Did you have a dental visit in the last 12 months?: Yes Did you have a dental problem in the last 6 months where you did not have access to dental care?: No Was dental information given to patient?: Patient has dentist HPI 3M Follow up HPI Details 84-year-old obese female with a history of diabetes pulmonary embolism 2012 hypertension cardiomyopathy coming in for the 1st time to see me. Review of the notes was seen by Cardiology in September 2023 coronary artery disease with status post rotational atherectomy and PCI LOPEZ to distal RCA across [facility] 12/2023 left ventricular ejection fraction 40-50% global left bundle branch block improved from 30-35% on 04/16/2023 history of TIA, cardiorenal syndrome was admitted for syncope at that time. Continue with aspirin clopidogrel 75 mg until 08/14/2024 carvedilol 6.25 mg twice a day rosuvastatin 10 mg once a day patient follows up with Nephrology. conern about arthritis tylenol 1 g TID concernabout constipation [facility] Medical History Fracture, ribs Obesity Type 2 diabetes mellitus with obesity Pneumonia Type 2 diabetes mellitus with hyperglycemia Pulmonary embolism Congestive heart failure Surgical History History of surgery on lower extremity H/O prior ablation treatment History of cervical spinal surgery History of hysterectomy Family History Father Diabetes CVD (cardiovascular disease) Mother No problems noted. Social History Housing: Apartment Alcohol intake: never Patient Tobacco Use Status: Never used Tobacco Tobacco use type: Cigarette e-Cigarette/Vaping Use: Never Used Second Hand Smoke Exposure: No Advance Directives Date on File: 01/27/21 service: No Current occupational status: retired Current occupational exposures/hazards: No Cognitive needs: Yes (walker/cane) Hearing needs: No Vision needs: Yes (glasses) Questionnaire PHQ-9 Over the last 2 weeks, how often have you been bothered by any of the following problems? 1. Little interest or pleasure in doing things: not at all 2. Feeling down, depressed, or hopeless: not at all 3. Trouble falling or staying asleep, or sleeping too much: not at all 4. Feeling tired or having little energy: not at all 5. Poor appetite or overeating: not at all 6. Feeling bad about yourself - or that you are a failure or have let yourself or your family down: not at all 7. Trouble concentrating on things, such as reading the newspaper or watching television: not at all 8. Moving or speaking so slowly that other people could have noticed. Or the opposite - being so fidgety or restless that you have been moving around a lot more than usual: not at all 9. Thoughts that you would be better off or of hurting yourself in some way: not at all Total score: 0 Depression Screening Interpretation: Negative Depression Screening Done: Yes 58288 - PHQ-9 Billing: Yes Source: Developed by Drs. Tim Hi, Yoselin Shahid, Brody Garcia and colleagues, with an educational trista from [employer]. Thrive Questionnaire Date Thrive assessed: 03/26/24 I am a: Patient What is your living situation today?: I have a steady place to live Within the past 12 months, did the food you bought not last and you didn't have the money to get more?: Never true Within the past 12 months, did you worry whether your food would run out before you got money to buy more?: Never true Do you have trouble paying for medicines?: No Do you have trouble getting transportation to medical appointments?: No Do you have trouble paying your heating and electricity bill?: No Do you have trouble taking care of your child, family member or friend?: No Do you have trouble with day-to-day activities such as bathing, preparing meals, shopping, managing finances, etc.?: No Are you currently unemployed and looking for a job?: No Are you interested in more education?: No Please select the resources that you would like help with: None Currently or been in a relationship where the following occur: no concerns reported THRIVE Score: 0 AUDIT C Alcohol Use Questionnaire (AUDIT-C) 1. How often do you have a drink containing alcohol?: Never 3. How often do you have six or more drinks on one occasion?: Never Total Score: 0 Score Reviewed/Action Taken: Yes MARCELLA-7 AMB Questionnaire MARCELLA-7 Date MARCELLA - 7 assessed: 03/26/24 Feeling nervous, anxious, or on edge: 0 = Not at all Not being able to stop or control worryin = Not at all Worrying too much about different things: 0 = Not at all Trouble relaxin = Not at all Being so restless that it is hard to sit still: 0 = Not at all Becoming easily annoyed or irritable: 0 = Not at all Feeling afraid as if something awful might happen: 0 = Not at all Total MARCELLA-7 score (0-4 normal; 5-9 mild; 10-14 moderate; 15-21 severe): 0 Source: Developed by Drs. Tim Hi, Yoselin Shahid, Brody Garcia and colleagues, with an educational trista from [employer]. MARCELLA-7 Assessment Billing MARCELLA-7 Assessment Tool: MARCELLA-7 Assessment 48461 Physical exam (Primary Care) Vital Signs: Last Vital Signs Pulse 84 03/26/24 13:17 BP 132/80 03/26/24 13:17 Pulse Ox 97 03/26/24 13:17 Oxygen Delivery Method Room Air 03/26/24 13:17 BMI result Body Mass Index 31.5 Tobacco/Smoking Status: Tobacco use Status Tobacco use date assessed 03/26/24 03/26/24 13:27 Patient Tobacco Use Status Never used Tobacco 03/26/24 13:17 Tobacco use type Cigarette 03/26/24 13:17 e-Cigarette/Vaping Use Never Used 03/26/24 13:17 PHQ-9: PHQ-9 Score PHQ-9: Total score 0 03/26/24 13:27 Depression Screening Interpretation: Negative Thrive Assessment: Date of Thrive Assessment Date Thrive assessed 03/26/24 03/26/24 13:27 Currently or been in a relationship where the following occur: no concerns reported Const General: alert; No acute distress Eyes Conjunctivae: conjunctivae normal Resp Auscultation: clear to auscultation bilaterally Cardio Rate: regular rate Rhythm: regular rhythm GI Inspection: Yes normal to inspection Extrem General: Yes normal to inspection and No edema Assessment and Plan Assessment & Plan (1) Cardiomyopathy: Comment: 40-50% ejection fraction March 2023 Code(s): I42.9 - Cardiomyopathy, unspecified Plan: Continue to follow up with Cardiology (2) Type 2 diabetes mellitus with hyperglycemia: Code(s): E11.65 - Type 2 diabetes mellitus with hyperglycemia Plan: Decrease the amount of carbohydrate intake, pasta, bread, rice and potatoes are all sugar and that is aside from all the sweet stuff, remember that fruits are good but they are Sweet also. Hemoglobin A1c goal of less than 7.0. Patient is not on any medication. (3) Obesity: Code(s): E66.9 - Obesity, unspecified Plan: Diet and exercise (4) Hypertension: Code(s): I10 - Essential (primary) hypertension Plan: Continue with blood pressure medication. Decrease salt intake and exercise on diuretic but not on any blood pressure medication. (5) Coronary artery disease: Code(s): I25.10 - Atherosclerotic heart disease of [place] coronary artery without angina pectoris Plan: Control the cholesterol, weight, blood pressure, diabetes continue with aspirin should be on clopidogrel until July 2024 (6) Pulmonary embolism: Comment: 2011 1year Code(s): I26.99 - Other pulmonary embolism without acute cor pulmonale Plan: Doing good. (7) Hypercholesterolemia: Code(s): E78.00 - Pure hypercholesterolemia, unspecified Plan: Avoid fried foods, chicken skin, eggs, butter margarine, pastries and meat. Be it pork or beef they have a lot of cholesterol LDL goal of less than 70 preferably less than 60 and triglyceride of less than 150 (8) TIA (transient ischemic attack): Comment: 2011 Code(s): G45.9 - Transient cerebral ischemic attack, unspecified (9) Constipation: Code(s): K59.00 - Constipation, unspecified Orders: Orders Comprehensive Met. Panel Today E11.65 - Type 2 diabetes mellitus with hyperglycemia Free T4 (Free Thyroxine) Today E11.65 - Type 2 diabetes mellitus with hyperglycemia Thyroid Stimulating Hormone Today E11.65 - Type 2 diabetes mellitus with hyperglycemia Lipid Panel Today E11.65 - Type 2 diabetes mellitus with hyperglycemia, E78.00 - Pure hypercholesterolemia, unspecified UA w Microscopic Today E11.65 - Type 2 diabetes mellitus with hyperglycemia Vitamin D 25-OH Total Today E11.65 - Type 2 diabetes mellitus with hyperglycemia Complete Blood Count Auto Diff Today E11.65 - Type 2 diabetes mellitus with hyperglycemia Vitamin B12 and Folate Today E11.65 - Type 2 diabetes mellitus with hyperglycemia Hemoglobin A1c Today E11.65 - Type 2 diabetes mellitus with hyperglycemia Magnesium Today E11.65 - Type 2 diabetes mellitus with hyperglycemia Phosphorus Today E11.65 - Type 2 diabetes mellitus with hyperglycemia Referrals Nutrition/Dietitian Referral E11.65 - Type 2 diabetes mellitus with hyperglycemia, E78.00 - Pure hypercholesterolemia, unspecified, I10 - Essential (primary) hypertension, I25.10 - Atherosclerotic heart disease of [place] coronary artery without angina pectoris Medications: New diclofenac sodium 1% (Arthritis Pain (diclofenac)) apply to single knee, ankle, foot; for foot includes sole/toes/top of foot 4 grams topical QID 100 grams 2RF M19.90 - Unspecified osteoarthritis, unspecified site Discontinued meloxicam Discontinued Reason: Doctor's Order 15 mg PO DAILY 30 tabs 0RF Coding Level of Care Code Est Pt Level 4 (27381) Diagnoses Cardiomyopathy I42.9 Type 2 diabetes mellitus with hyperglycemia E11.65 Obesity E66.9 Hypertension I10 Coronary artery disease I25.10 Pulmonary embolism I26.99 Hypercholesterolemia E78.00 TIA (transient ischemic attack) G45.9 Constipation K59.00 Additional Codes MARCELLA-7 Assessment Billing - MARCELLA-7 Assessment Tool: MARCELLA-7 Assessment 45649 ([id number])
== END 2024-03-26 14:45 | disposition home or self-care (01) ==
PROVIDERS: PCP Internal Medicine; Visit Provider Internal Medicine
DX: E11.65 Type 2 diabetes mellitus with hyperglycemia (principal); I26.99 Other pulmonary embolism without acute cor pulmonale; E66.9 Obesity, unspecified; Z68.31 Body mass index [BMI] 31.0-31.9, adult; I42.9 Cardiomyopathy, unspecified; I10 Essential (primary) hypertension; I25.10 Atherosclerotic heart disease of native coronary artery without angina pectoris; E78.00 Pure hypercholesterolemia, unspecified; G45.9 Transient cerebral ischemic attack, unspecified; K59.00 Constipation, unspecified
CPT/HCPCS: 99214

== ENCOUNTER 2024-04-03 19:59 | Inpatient (IN) | payer OTHER, SELFPAY ==
--- NOTE | ~2024-04-03 | CT_ITS ---
EXAMINATION: CT ABDOMEN AND PELVIS WITHOUT CONTRAST CLINICAL INFORMATION: Abdominal pain. Fecal impaction. COMPARISON: 02/22/2022 TECHNIQUE: Multidetector volumetric imaging was performed from the superior aspect of the liver through the pubic symphysis. Sagittal and coronal reformatted images were obtained on the technologist's workstation. This CT examination was performed using dose optimization techniques as appropriate, variously including the following: *Automated exposure control *Adjustment of mA and/or kV according to patient size (this includes techniques or standardized protocols for targeted exams where dose is matched to indication/reason for exam; i.e. extremities or head) *Use of iterative reconstruction technique DLP: 491 mGy-cm FINDINGS: LUNG BASES: The visualized lung bases are unremarkable. LIVER, GALLBLADDER, AND BILIARY TREE: The liver is normal in size, shape, and attenuation. No focal hepatic lesion or biliary ductal dilatation is present. There has been a prior cholecystectomy. PANCREAS: Unremarkable. SPLEEN: Unremarkable. ADRENAL GLANDS: Unremarkable. KIDNEYS AND URETERS: The kidneys are normal in size, shape, and attenuation. No hydronephrosis, hydroureter, or calculi seen. No perinephric stranding. BLADDER: Unremarkable. GASTROINTESTINAL TRACT: There is retained rectal stool with rectal expansion up to 7.5 cm and mild rectal thickening and minimal perirectal infiltrative change. There is apparent liquid stool throughout the remaining colon. There is a small hiatal hernia. The appendix is not identified as a separate structure. ABDOMINAL WALL: There is a stable small collection along the upper abdominal wall musculature. LYMPH NODES: Normal. VASCULAR: There is atherosclerotic plaque of the abdominal aorta and proximal branches. PELVIC VISCERA: Unremarkable. OSSEOUS STRUCTURES: Bony structures are osteopenic. There is diffuse thoracolumbar disc degenerative change. CT/CT abdomen pelvis wo IV con IMPRESSION: 1. Retained rectal stool with rectal expansion up to 7.5 cm and mild rectal thickening and minimal perirectal infiltrative change. Suspect a stercoral colitis. 2. Apparent liquid stool throughout the remaining colon. Fleischner guidelines were followed.
[2024-04-03 20:05] VITALS: BP 88/55; PULSE 65; RESP 17; TEMP 36.6; O2SAT 96; BMI 32.1
[2024-04-03 20:21] VITALS: BP 88/55; PULSE 70; RESP 16; TEMP 36.7; O2SAT 99
[2024-04-03 20:25] VITALS: BP 106/84; PULSE 70; RESP 17; O2SAT 95
--- NOTE | 2024-04-03 20:39 | ED.GENADULT ---
HPI - General Adult General Chief complaint: General Medical Stated complaint: severe rectal pain, constipation Time Seen by Provider: 04/03/24 20:35 Source: patient Mode of arrival: EMS Limitations: no limitations History of Present Illness HPI narrative: Patient's history of constipation been constipated for last few days tried milk of magnesia and sit trauma unable to move her bowels feels hard stool in the rectum with watery stool coming from rectum no nausea no vomiting on arrival patient had transiently blood pressure dropped to 88/55 repeat blood pressure was 106/84 patient denies any chest pain or palpitation no passing out episode Related Data Home Medications ?Medication ?Instructions ?Recorded ?Confirmed aspirin 81 mg tablet,delayed 81 mg PO DAILY 06/14/23 03/26/24 release carvedilol 6.25 mg tablet 6.25 mg PO BID 03/26/24 03/26/24 clopidogrel 75 mg tablet 75 mg PO DAILY 03/26/24 03/26/24 insulin glargine 100 unit/mL (3 20 unit subcut QAM 03/26/24 03/26/24 mL) subcutaneous pen (Lantus Solostar U-100 Insulin) mirtazapine 15 mg tablet 15 mg PO BEDTIME 03/26/24 03/26/24 rosuvastatin 10 mg tablet 10 mg PO DAILY 03/26/24 03/26/24 Previous Rx's ?Medication ?Instructions ?Recorded lancets 28 gauge (FreeStyle ##100 04/29/23 Lancets) blood sugar diagnostic (FreeStyle #100 ea 10/17/23 Lite Strips) furosemide 20 mg tablet 20 mg PO DAILY #30 tabs 01/23/24 duloxetine 20 mg capsule,delayed 20 mg PO BID #180 caps 02/27/24 release melatonin 5 mg tablet 10 mg (2 x 5 mg) PO BEDTIME #90 03/19/24 tabs tizanidine 4 mg capsule 8 mg (2 x 4 mg) PO BEDTIME muscle 03/19/24 spasticity #60 caps diclofenac sodium 1 % topical gel 4 g topical QID #100 grams 03/26/24 (Arthritis Pain (diclofenac)) polyethylene glycol 3350 17 17 g PO DAILY #510 grams 04/04/24 gram/dose oral powder (Miralax) Allergies Allergy/AdvReac Type Severity Reaction Status Date / Time levofloxacin [From LEVAQUIN] Allergy Intermediate RASH Verified 04/03/24 20:25 eszopiclone [From LUNESTA] Allergy Mild HALLUCINATI Verified 04/03/24 20:25 ONS zolpidem [Ambien] Allergy Unknown sleep Verified 04/03/24 20:25 walking meperidine [Meperidine] AdvReac Intermediate hallucinati Verified 04/03/24 20:25 ons pregabalin [From LYRICA] AdvReac Unknown AGITATION Verified 04/03/24 20:25 trazodone [TRAZODONE] AdvReac Unknown AGITATION Verified 04/03/24 20:25 Review of Systems Review of Systems: Yes all other systems are reviewed and are negative [facility] Past Medical History Medical History Fracture, ribs Obesity Type 2 diabetes mellitus with obesity Pneumonia Type 2 diabetes mellitus with hyperglycemia Pulmonary embolism Congestive heart failure Surgical History History of surgery on lower extremity H/O prior ablation treatment History of cervical spinal surgery History of hysterectomy Family History Family History Father Diabetes CVD (cardiovascular disease) Mother No problems noted. Social History Social History Housing: Apartment Alcohol intake: never Patient Tobacco Use Status: Never used Tobacco Tobacco use type: Cigarette Smoked in Last 30 Days: No e-Cigarette/Vaping Use: Never Used Second Hand Smoke Exposure: No Advance Directives: Yes Advance Directives on File: Yes Advance Directives Date on File: 01/27/21 Do you have a plan to hurt others: No Plan service: No Current occupational status: retired Current occupational exposures/hazards: No Cognitive needs: Yes (walker/cane) Hearing needs: No Vision needs: Yes (glasses) Physical Exam ED Vital Signs: Vital Signs - 24 hr 04/03/24 20:05 04/03/24 20:21 04/03/24 20:25 Temperature 98 F 98.0 F Pulse Rate 65 70 70 Respiratory Rate 17 16 17 Blood Pressure 88/55 L 88/55 L 106/84 Pulse Oximetry 96 99 95 Oxygen Delivery Method Room Air Room Air Room Air 04/03/24 22:14 04/04/24 00:35 Temperature 97.5 F Pulse Rate 71 67 Respiratory Rate 16 14 Blood Pressure 132/52 L 142/67 H Pulse Oximetry 95 Oxygen Delivery Method Room Air BMI result Body Mass Index 32.1 Appearance: Alert. Oriented X3. No acute distress. Eyes: PERRLA, No Nystagmus ENT: Pharynx normal. Oral Mucosa moist Neck: Normal inspection. Neck supple. CVS: Normal heart rate and rhythm. Pulses normal. Respiratory: No respiratory distress. Equal air entry bilateral, no wheezing/rales/rhonchi Abdomen: Soft and nontender. Bowel sounds are present, no mass palpable, no CVA tenderness rectal: Hard stool in the rectum manual disimpaction was done Skin: Skin warm and dry. Normal skin color. Normal skin turgor. Extremities: No lower extremity edema. No calf tenderness Neuro: Oriented X 3. No motor deficit. No sensory deficit.No cerebellar signs , cranial nerves II-XII intact Medications Administered Generic Name Dose Route Start Last Admin Trade Name Freq PRN Reason Stop Dose Admin Sodium Chloride 1,000 mls @ 999 mls/hr 04/04/24 01:18 04/04/24 01:36 Ns IV 04/04/24 02:18 999 mls/hr .Q1H1M ONE Administration Discontinued Medications Generic Name Dose Route Start Last Admin Trade Name Freq PRN Reason Stop Dose Admin Lidocaine HCl 10 ml 04/03/24 22:43 04/03/24 22:59 Lidocaine Hcl 2 % Urojet 10 Ml Jel.Pf.Jonh TOPICAL 04/03/24 22:44 10 ml ONCE ONE Administration Medical Decision Making Medical Decision Making [facility] Narrative: Patient with fecal impaction with worsening of renal failure will admit patient for IV hydration. Patient had a good bowel movement after manual disimpaction CT scan showed good amount of stool in the rectal area. Will give her p.o. milk of magnesia, Dulcolax patient is still having bowel movements slowly will admit patient for IV hydration Differential Diagnosis Differential Diagnoses: The differential diagnosis associated with the presentation includes Admission/Observation Consideration of admission/observation: Escalation of care including admission/observation considered Consult Healthcare Provider Management of the patient was discussed with: Hospitalist Lab Data [facility] Lab Attestation statement: I reviewed the patient's lab results. 04/03/24 20:53 04/03/24 20:53 Labs: Lab Results 04/03/24 Range/Units 20:53 WBC 16.8 H (4.8-10.8) X10*3/uL RBC 3.86 L (4.20-5.50) X10*6/uL Hgb 9.7 L (12.0-16.0) g/dl Hct 30.7 L (37.0-47.0) % MCV 79.5 L (80.0-98.0) fL MCH 25.1 L (27.0-33.0) pg MCHC 31.6 (31.0-35.0) g/dl RDW 15.8 (11.0-16.0) % Plt Count 309 (160-400) X10*3/uL MPV 10.3 (9.4-12.3) fL Immature Gran % (Auto) 0.5 H (0.0-0.4) % Neut % (Auto) 87.4 H (45-73) % Lymph % (Auto) 6.1 L (20-40) % [place] % (Auto) 5.6 (2-11) % Eos % (Auto) 0.1 (0-4) % Baso % (Auto) 0.3 (0-2) % Lymph # (Auto) 1.0 L (1.2-4.9) X10*3/uL [place] # (Auto) 0.9 (0.1-1.2) X10*3/uL Eos # (Auto) 0.0 (0.0-0.4) X10*3/uL Baso # (Auto) 0.1 (0.0-0.2) X10*3/uL Abs Immat Gran (auto) 0.09 H (0.00-0.03) X10*3/uL Absolute Neuts (auto) 14.7 H (2.0-8.3) x10*3/uL Absolute Nucleated RBC 0.000 (0.0-0.012) X10*3/uL Nucleated RBC % (auto) 0.0 (0.0-0.2) /100WBC Sodium 135 (135-145) mmol/L Potassium 3.9 (3.3-5.1) mmol/L Chloride 96 (96-108) mmol/L Carbon Dioxide 20 L (22-29) mmol/L Anion Gap 23 H (12-20) BUN 51 H (9-16) mg/dL Creatinine 2.02 H (0.5-1.4) mg/dL Estim Creat Clear Calc 16.7 Estimated GFR 24 Random Glucose 287 H (60-115) mg/dL Calcium 8.5 (8.4-10.2) mg/dL Total Bilirubin 0.9 (0.0-1.0) mg/dL AST 33 H (5-31) U/L ALT 14 (0-31) U/L Alkaline Phosphatase 116 (39-117) U/L Total Protein 8.4 H (6.5-8.0) g/dL Albumin 4.1 (3.5-5.0) g/dL Independent Interpretation I performed an independent interpretation of an: CT Scan Interpretation: Fecal impaction in the rectum Discharge Plan Discharge Clinical Impression: Fecal impaction, Acute renal failure Patient Disposition: Admitted As Inpatient Additional Instructions: Take stool softener daily as prescribed Follow-up with your PCP if any concerns Print Language: Danish
[2024-04-03 20:57] LABS: MANUAL DIFF FLAG NO
[2024-04-03 20:59] LABS: Basophils Absolute Auto 0.1 X10*3/uL (0.0-0.2); Basophils Percent Auto 0.3 % (0-2); Eosinophils Percent Auto 0.1 % (0-4); Hematocrit 30.7 % (37.0-47.0); Hemoglobin 9.7 g/dl (12.0-16.0); Imm Gran Abs Auto 0.09 X10*3/uL (0.00-0.03); Imm Gran Pct Auto 0.5 % (0.0-0.4); Lymphocytes Percent Auto 6.1 % (20-40); Mean Corpuscular HGB Conc 31.6 g/dl (31.0-35.0); Mean Corpuscular Hemoglobin 25.1 pg (27.0-33.0); Mean Corpuscular Volume 79.5 fL (80.0-98.0); Mean Platelet Volume 10.3 fL (9.4-12.3); Monocytes Absolute Auto 0.9 X10*3/uL (0.1-1.2); Monocytes Percent Auto 5.6 % (2-11); Neutrophils Absolute Auto 14.7 x10*3/uL (2.0-8.3); Neutrophils Percent Auto 87.4 % (45-73); Platelet Count 309 X10*3/uL (160-400); Red Blood Count 3.86 X10*6/uL (4.20-5.50); Red Cell Distribution Width 15.8 % (11.0-16.0); White Blood Count 16.8 X10*3/uL (4.8-10.8)
[2024-04-03 21:13] LABS: Alanine Aminotransferase 14 U/L (0-31); Albumin Level 4.1 g/dL (3.5-5.0); Alkaline Phosphatase 116 U/L (39-117); Anion Gap 23 (12-20); Aspartate Amino Transferase 33 U/L (5-31); Bilirubin Total 0.9 mg/dL (0.0-1.0); Blood Urea Nitrogen 51 mg/dL (9-16); Calcium 8.5 mg/dL (8.4-10.2); Carbon Dioxide 20 mmol/L (22-29); Chloride 96 mmol/L (96-108); Creatinine Clr Calc Pharmacy 16.7; Estimated Glomerular Filt Rate 24; Glucose Random 287 mg/dL (60-115); Potassium 3.9 mmol/L (3.3-5.1); Sodium 135 mmol/L (135-145); Total Protein 8.4 g/dL (6.5-8.0)
[2024-04-03 22:14] VITALS: BP 132/52; PULSE 71; RESP 16
--- NOTE | 2024-04-03 22:30 | PC.NURSE ---
BROTHER [phone] TO CALL FOR [facility] AT D/C
[2024-04-03] MEDS: Lidocaine HCl 2 % Urojet 10 ML JEL.PF.APP TOPICAL (22:59)
[2024-04-04] VITALS (7 sets, daily range): BP systolic 108–144; BP diastolic 58–73; PULSE 67–90; RESP 14–20; TEMP 36–36.8; O2SAT 92–98; BMI 30.9
--- NOTE | 2024-04-04 00:07 | PC.NURSE ---
pt had a BM in bedside commode, feels much better at this time. aware
[2024-04-04] MEDS: 0.9 % Sodium Chloride 1,000 ML 999 ML IV (01:36)
[2024-04-04] MEDS: bisacodyL 5 MG TABLET.DR 10 MG PO (02:22)
[2024-04-04] MEDS: Milk of Magnesia 30 ML ORAL.SUSP PO (02:22)
--- NOTE | 2024-04-04 03:49 | P.HPHOSP_ITS ---
History of Present Illness Date of Service: 04/04/24 Attending physician on admission: Em Aguilar Chief Complaint: Rectal pain, constipated Yoselin Ladge is 84 years old woman with past medical history significant for chronic constipation, CKD stage 3B, type 2 diabetes mellitus, hyperlipidemia and hypertension was brought to the emergency department via EMS due to constipation since Saturday for which she has been taking milk of magnesia. She stated that she was able to pass liquid stool around what she feels is as hard stool ball. She denied any associated symptoms such as abdominal pain, nausea, vomiting, fevers or chills. She also denied any acute urinary symptoms. Denies any acute cardiopulmonary symptoms. In the ED, she was initially found to have patient 88/55 but no tachycardia or fever reported. Blood workup showed leukocytosis of 16.8. Hemoglobin is 9.7. Platelets are normal. Creatinine is 2.02 (previous around 1.36 - 1.63), was 287. Bicarb slightly low. AST is minimally elevated at 33, the rest of the LFTs are normal. Abdomen pelvis CT scan was performed -results are still pending. ED tx: NS 1 L bolus, Dulcolax 10 mg p.o., MOM 30 ml PO Review of Systems 2 Review of Systems: All 12 systems were reviewed and normal except as noted in HPI. [facility] Medical History Fracture, ribs Obesity Type 2 diabetes mellitus with obesity Pneumonia Type 2 diabetes mellitus with hyperglycemia Pulmonary embolism Congestive heart failure Family History Father Diabetes CVD (cardiovascular disease) Mother No problems noted. Surgical History History of surgery on lower extremity H/O prior ablation treatment History of cervical spinal surgery History of hysterectomy Social History Housing: Apartment Alcohol intake: never Patient Tobacco Use Status: Never used Tobacco Tobacco use type: Cigarette Smoked in Last 30 Days: No e-Cigarette/Vaping Use: Never Used Second Hand Smoke Exposure: No Advance Directives: Yes Advance Directives on File: Yes Advance Directives Date on File: 01/27/21 Do you have a plan to hurt others: No Plan service: No Current occupational status: retired Current occupational exposures/hazards: No Cognitive needs: Yes (walker/cane) Hearing needs: No Vision needs: Yes (glasses) Meds Allergies Allergy/AdvReac Type Severity Reaction Status Date / Time levofloxacin [From LEVAQUIN] Allergy Intermediate RASH Verified 04/03/24 20:25 eszopiclone [From LUNESTA] Allergy Mild HALLUCINATI Verified 04/03/24 20:25 ONS zolpidem [Ambien] Allergy Unknown sleep Verified 04/03/24 20:25 walking meperidine [Meperidine] AdvReac Intermediate hallucinati Verified 04/03/24 20:25 ons pregabalin [From LYRICA] AdvReac Unknown AGITATION Verified 04/03/24 20:25 trazodone [TRAZODONE] AdvReac Unknown AGITATION Verified 04/03/24 20:25 Active Medications: Current Medications Enoxaparin Sodium (Enoxaparin Sodium 40 Mg/0.4 Ml Syringe) 30 mg SUBCUT Q24H [facility] Sodium Chloride (0.9 % Sodium Chloride Flush 3 Ml Syringe) 3 ml IVFLUSH QSHIFT [facility] Home Medications ?Medication ?Instructions ?Recorded ?Confirmed ?Last Taken ?Type aspirin 81 mg tablet,delayed 81 mg PO DAILY 06/14/23 03/26/24 Unknown History release carvedilol 6.25 mg tablet 6.25 mg PO BID 03/26/24 03/26/24 Unknown History clopidogrel 75 mg tablet 75 mg PO DAILY 03/26/24 03/26/24 Unknown History insulin glargine 100 unit/mL (3 20 unit subcut QAM 03/26/24 03/26/24 Unknown History mL) subcutaneous pen (Lantus Solostar U-100 Insulin) mirtazapine 15 mg tablet 15 mg PO BEDTIME 03/26/24 03/26/24 Unknown History rosuvastatin 10 mg tablet 10 mg PO DAILY 03/26/24 03/26/24 Unknown History Physical Exam 2 Vital Signs and Narrative: Vital Signs: Last Vital Signs Temp 98.0 F 04/04/24 02:26 Pulse 72 04/04/24 02:26 Resp 18 04/04/24 02:26 BP 142/68 H 04/04/24 02:26 Pulse Ox 96 04/04/24 02:26 O2 Del Method Room Air 04/04/24 02:26 BMI result Body Mass Index 32.1 Constitutional - Awake and Alert, No apparent distress. Cooperative. HEENT - Pupils equally round. Normal sclerae. Dry oral mucosa. Heart - S1S2, RRR. Lungs - Normal lung expansion, Normal respiratory effort, No respiratory distress, CTA bilaterally Abdomen - NT / ND; +BS; No rebound or guarding. Multiple surgical scars noted. Extremities - no calf tenderness bilaterally, no swelling Musculoskeletal - Normal inspection, normal ROM Skin - Warm/Dry Neurological - Alert & oriented x3. No focal weakness grossly noted. Normal speech. Psychological - Appropriate affect Results Labs 04/03/24 20:53 04/03/24 20:53 Labs: Laboratory Results - last 24 hr 04/03/24 20:53 MCV 79.5 L MCH 25.1 L MCHC 31.6 RDW 15.8 Plt Count 309 MPV 10.3 Immature Gran % (Auto) 0.5 H Neut % (Auto) 87.4 H Lymph % (Auto) 6.1 L [place] % (Auto) 5.6 Eos % (Auto) 0.1 Baso % (Auto) 0.3 Lymph # (Auto) 1.0 L [place] # (Auto) 0.9 Eos # (Auto) 0.0 Baso # (Auto) 0.1 Abs Immat Gran (auto) 0.09 H Absolute Neuts (auto) 14.7 H Absolute Nucleated RBC 0.000 Nucleated RBC % (auto) 0.0 Anion Gap 23 H Estim Creat Clear Calc 16.7 Estimated GFR 24 Random Glucose 287 H Calcium 8.5 Total Bilirubin 0.9 AST 33 H ALT 14 Alkaline Phosphatase 116 Total Protein 8.4 H Albumin 4.1 Assessment and Plan (1) Acute on chronic renal failure: Qualifiers: Acute renal failure type: unspecified Chronic kidney disease stage: s tage 3 (moderate) Chronic kidney disease stage 3 subtype: stage 3b (GFR 30-44) Qualified Code(s): N17.9 - Acute kidney failure, unspecified; N18.32 - Chronic kidney disease, stage 3b Status: Acute (2) Fecal impaction: Status: Acute (3) Constipation: Qualifiers: Constipation type: slow transit constipation Qualified Code(s): K59.01 - Slow transit constipation Status: Acute (4) TIA (transient ischemic attack): Status: Acute (5) Hypercholesterolemia: Status: Acute (6) Coronary artery disease: Qualifiers: Coronary Disease-Associated Artery/Lesion type: unspecified vessel or lesion type [place] vs. transplanted heart: unspecified whether [place] or transplanted heart Associated angina: unspecified whether angina present Q ualified Code(s): I25.10 - Atherosclerotic heart disease of [place] coronary artery without angina pectoris Status: Acute (7) Cardiomyopathy: Qualifiers: Cardiomyopathy type: unspecified Qualified Code(s): I42.9 - Cardiomyopathy, unspecified Status: Acute (8) Type 2 diabetes mellitus with obesity: Status: Acute Plan Yoselin Ortiz is 84 y/o woman admitted with: * Acute on chronic kidney failure. Secondary to multiple loose stools + use. Gentle IV fluids. Hold furosemide Continue to monitor renal function. Avoid nephrotoxic agents. * Fecal impaction. s/p digital disimpaction by ED. Patient has now relief. * Type 2 diabetes mellitus. BG checks before meals and bedtime. Continue Lantus and insulin sliding scale. Diabetic diet. * Hyperlipidemia. Continue statin. * Essential hypertension. Continue home medications. * HFrEF. No symptoms reported. Continue carvedilol. Furosemide on hold due to [place]. * TIA. Continue Plavix and aspirin. * Hx of remote bilateral PE, 2012. Code status: Full DVT prophylaxis: SCDs Patient will need hospitalization for at least 2 midnights for acute on chronic kidney failure therapy with IV fluids. She will also need close monitoring of renal function. Quality Stroke Does the patient have a stroke diagnosis?: No VTE Prior VTE?: No VTE Risk Level:: Medical - moderate - high VTE Device Contraindication: Treatment Not Indicated VTE Drug Contraindication: N/A - Med Ordered
--- NOTE | 2024-04-04 05:02 | PC.NURSE ---
assist with getting pt comfortable in bed. resting quietly
[2024-04-04 06:26] LABS: MANUAL DIFF FLAG NO
[2024-04-04 06:35] LABS: Basophils Percent Auto 0.2 % (0-2); Eosinophils Percent Auto 0.3 % (0-4); Hematocrit 30.1 % (37.0-47.0); Hemoglobin 9.4 g/dl (12.0-16.0); Imm Gran Abs Auto 0.05 X10*3/uL (0.00-0.03); Imm Gran Pct Auto 0.3 % (0.0-0.4); Lymphocytes Absolute Auto 1.3 X10*3/uL (1.2-4.9); Lymphocytes Percent Auto 8.6 % (20-40); Mean Corpuscular HGB Conc 31.2 g/dl (31.0-35.0); Mean Corpuscular Hemoglobin 25.3 pg (27.0-33.0); Mean Corpuscular Volume 80.9 fL (80.0-98.0); Mean Platelet Volume 10.1 fL (9.4-12.3); Monocytes Percent Auto 6.7 % (2-11); Neutrophils Absolute Auto 12.8 x10*3/uL (2.0-8.3); Neutrophils Percent Auto 83.9 % (45-73); Platelet Count 284 X10*3/uL (160-400); Red Blood Count 3.72 X10*6/uL (4.20-5.50); Red Cell Distribution Width 15.9 % (11.0-16.0); White Blood Count 15.3 X10*3/uL (4.8-10.8)
[2024-04-04 06:48] LABS: Alanine Aminotransferase 9 U/L (0-31); Albumin Level 3.8 g/dL (3.5-5.0); Alkaline Phosphatase 114 U/L (39-117); Anion Gap 18 (12-20); Aspartate Amino Transferase 23 U/L (5-31); Bilirubin Total 0.6 mg/dL (0.0-1.0); Blood Urea Nitrogen 47 mg/dL (9-16); Calcium 7.8 mg/dL (8.4-10.2); Carbon Dioxide 24 mmol/L (22-29); Chloride 99 mmol/L (96-108); Creatinine Clr Calc Pharmacy 22.6; Estimated Glomerular Filt Rate 33; Glucose Random 223 mg/dL (60-115); Potassium 3.5 mmol/L (3.3-5.1); Sodium 137 mmol/L (135-145); Total Protein 7.5 g/dL (6.5-8.0)
[2024-04-04] MEDS: 0.9 % Sodium Chloride Flush 3 ML SYRINGE IVFLUSH ×2 (07:24→16:40)
[2024-04-04 07:33] LABS: Glucose, Whole Blood 211 mg/dL (60-115)
[2024-04-04] MEDS: Insulin Lispro 100 UNIT/ML 3 ML VIAL SUBCUT ×4 (07:35→20:52)
[2024-04-04] MEDS: Aspirin Enteric Coated 81 MG TABLET.DR PO (08:40)
[2024-04-04 09:01] LABS: Glucose, Whole Blood 229 mg/dL (60-115)
--- NOTE | 2024-04-04 09:13 | PHA.MEDREC ---
Pharmacy Consult ? Medication Reconciliation Pharmacy has completed the medication reconciliation.
[2024-04-04 11:16] LABS: Glucose, Whole Blood 207 mg/dL (60-115)
--- NOTE | 2024-04-04 13:14 | P.PNIM_ITS ---
Subjective Subjective Date of Service: 04/04/24 Physical Exam 2 Vital Signs: Vital Signs: Last Vital Signs Temp 96.8 F 04/04/24 09:23 Pulse 77 04/04/24 09:23 Resp 18 04/04/24 09:23 BP 144/63 H 04/04/24 09:23 Pulse Ox 93 04/04/24 09:23 O2 Del Method Room Air 04/04/24 09:23 BMI result Body Mass Index 30.9 Objective Data Active Medications Aspirin (Aspirin Enteric Coated 81 Mg Tablet.) 81 mg PO BEDTIME REGGIE Atorvastatin Calcium (Atorvastatin Calcium 40 Mg Tablet) 40 mg PO BEDTIME REGGIE Carvedilol (Carvedilol 6.25 Mg Tablet) 6.25 mg PO BIDWM [facility]; Protocol Clopidogrel Bisulfate (Clopidogrel Bisulfate 75 Mg Tablet) 75 mg PO BEDTIME REGGIE Docusate Sodium (Docusate Sodium 100 Mg Capsule) 200 mg PO BEDTIME REGGIE Duloxetine HCl (Duloxetine Hcl 20 Mg Capsule.) 20 mg PO BID [facility] Glucose (Glucose Gel 15 Gm Gel..Gram.) 15 gm PO Q15M PRN; Protocol PRN Reason: per Hypoglycemia Standing Ord. Dextrose (D10) 250 mls @ 750 mls/hr IV Q15M PRN; Protocol PRN Reason: per Hypoglycemia Standing Ord. Insulin Glargine (Insulin Glargine,Hum.Rec.Anlog 100 Unit/Ml 10 Ml Vial) 20 unit SUBCUT DAILY [facility] Insulin Human Lispro (Insulin Lispro 100 Unit/Ml 3 Ml Vial) 0 unit SUBCUT QIDACHS [facility]; Protocol Last Admin: 04/04/24 11:37 Dose: 4 unit Documented By: FATOU Magnesium Hydroxide (Milk Of Magnesia 30 Ml Oral.Susp) 30 ml PO DAILY PRN PRN Reason: Constipation Melatonin (Melatonin 3 Mg Tablet) 9 mg PO BEDTIME [facility] Mirtazapine (Mirtazapine 15 Mg Tablet) 15 mg PO BEDTIME [facility] Sodium Chloride (0.9 % Sodium Chloride Flush 3 Ml Syringe) 3 ml IVFLUSH QSHIFT [facility] Last Admin: 04/04/24 07:24 Dose: 3 ml Documented By: ESE Tizanidine HCl (Tizanidine Hcl 4 Mg Tablet) 8 mg PO BEDTIME [facility] Labs 04/04/24 06:15 04/04/24 06:15 Labs: Laboratory Results - last 24 hr 04/03/24 04/04/24 04/04/24 20:53 06:15 07:30 MCV 79.5 L 80.9 MCH 25.1 L 25.3 L MCHC 31.6 31.2 RDW 15.8 15.9 Plt Count 309 284 MPV 10.3 10.1 Immature Gran % (Auto) 0.5 H 0.3 Neut % (Auto) 87.4 H 83.9 H Lymph % (Auto) 6.1 L 8.6 L [place] % (Auto) 5.6 6.7 Eos % (Auto) 0.1 0.3 Baso % (Auto) 0.3 0.2 Lymph # (Auto) 1.0 L 1.3 [place] # (Auto) 0.9 1.0 Eos # (Auto) 0.0 0.0 Baso # (Auto) 0.1 0.0 Abs Immat Gran (auto) 0.09 H 0.05 H Absolute Neuts (auto) 14.7 H 12.8 H Absolute Nucleated RBC 0.000 0.000 Nucleated RBC % (auto) 0.0 0.0 Anion Gap 23 H 18 Estim Creat Clear Calc 16.7 22.6 Estimated GFR 24 33 POC Glucose 211 H Random Glucose 287 H 223 H Calcium 8.5 7.8 L D Total Bilirubin 0.9 0.6 AST 33 H 23 ALT 14 9 Alkaline Phosphatase 116 114 Total Protein 8.4 H 7.5 Albumin 4.1 3.8 04/04/24 04/04/24 08:57 11:11 MCV MCH MCHC RDW Plt Count MPV Immature Gran % (Auto) Neut % (Auto) Lymph % (Auto) [place] % (Auto) Eos % (Auto) Baso % (Auto) Lymph # (Auto) [place] # (Auto) Eos # (Auto) Baso # (Auto) Abs Immat Gran (auto) Absolute Neuts (auto) Absolute Nucleated RBC Nucleated RBC % (auto) Anion Gap Estim Creat Clear Calc Estimated GFR POC Glucose 229 H 207 H Random Glucose Calcium Total Bilirubin AST ALT Alkaline Phosphatase Total Protein Albumin Quality Stroke Does the patient have a stroke diagnosis?: No VTE Prior VTE?: No VTE Risk Level:: Medical - moderate - high VTE Device Contraindication: Treatment Not Indicated VTE Drug Contraindication: N/A - Med Ordered
--- NOTE | 2024-04-04 13:20 | PM.EVENT ---
Event Note Date of Service: 04/04/24 Event Note: This patient is seen and examined by night hospitalist service and seen and exmained again physical exam: similar to h&P Physical exam and assessment and plan coordinated in h&P note, Agree with the plan in addition: fredy improving constipation /stool impaction-continue luxatives ad with hyperglycemia -adjusted sliding scale. overweight -encouraged to lose weight/cutdown calories Time Spent With Patient Time: Total time managing care of this patient today ____ minutes.
[2024-04-04 16:18] LABS: Glucose, Whole Blood 219 mg/dL (60-115)
[2024-04-04] MEDS: carvediloL 6.25 MG TABLET PO (16:39)
[2024-04-04 20:09] LABS: Glucose, Whole Blood 197 mg/dL (60-115)
[2024-04-04] MEDS: Melatonin 3 MG TABLET 9 MG PO (20:40)
[2024-04-04] MEDS: Clopidogrel Bisulfate 75 MG TABLET PO (20:41)
[2024-04-04] MEDS: Atorvastatin Calcium 40 MG TABLET PO (20:41)
[2024-04-04] MEDS: DULoxetine HCl 20 MG CAPSULE.DR PO (20:41)
[2024-04-04] MEDS: TiZANidine HCL 4 MG TABLET 8 MG PO (20:41)
[2024-04-04] MEDS: Mirtazapine 15 MG TABLET PO (20:42)
[2024-04-04] MEDS: Docusate Sodium 100 MG CAPSULE 200 MG PO (20:42)
[2024-04-05 03:44] VITALS: BP 123/59; PULSE 57; RESP 18; TEMP 36.4; O2SAT 99
[2024-04-05] MEDS: 0.9 % Sodium Chloride Flush 3 ML SYRINGE IVFLUSH ×2 (06:43→07:57)
[2024-04-05 07:30] VITALS: BP 98/50; PULSE 58; RESP 16; TEMP 36; O2SAT 97
[2024-04-05 07:38] LABS: Glucose, Whole Blood 182 mg/dL (60-115)
[2024-04-05] MEDS: Insulin Glargine,Hum.rec.anlog 100 UNIT/ML 10 ML VIAL 20 UNIT SUBCUT (07:55)
[2024-04-05] MEDS: Insulin Lispro 100 UNIT/ML 3 ML VIAL SUBCUT ×2 (07:56→11:51)
[2024-04-05] MEDS: DULoxetine HCl 20 MG CAPSULE.DR PO (07:59)
--- NOTE | 2024-04-05 11:08 | PM.DS ---
DS: Providers Provider Date of Service: 04/05/24 Date of admission: 04/04/24 04:20 Date of discharge: 04/05/24 Primary care physician: Unknown Physician Attending physician on discharge: Ceci Haywood Discharging clinician: Ceci Haywood DS: Diagnosis Discharge Diagnosis (1) Fecal impaction: Status: Acute (2) Constipation: Status: Acute DS: Summary Hospital Course Hospital Course: Hpi: 84 years old woman with past medical history significant for chronic constipation, CKD stage 3B, type 2 diabetes mellitus, hyperlipidemia and hypertension was brought to the emergency department via EMS due to constipation since Saturday for which she has been taking milk of magnesia. She stated that she was able to pass liquid stool around what she feels is as hard stool ball. She denied any associated symptoms such as abdominal pain, nausea, vomiting, fevers or chills. She also denied any acute urinary symptoms. Denies any acute cardiopulmonary symptoms. In the ED, she was initially found to have patient 88/55 but no tachycardia or fever reported. Blood workup showed leukocytosis of 16.8. Hemoglobin is 9.7. Platelets are normal. Creatinine is 2.02 (previous around 1.36 - 1.63), was 287. Bicarb slightly low. AST is minimally elevated at 33, the rest of the LFTs are normal. Abdomen pelvis CT scan was performed -results are still pending. ED tx: NS 1 L bolus, Dulcolax 10 mg p.o., MOM 30 ml PO Hospital course: Patient is admitted for stool impaction and constipation- s/p digital disimpaction ,passed multiple bm's, als had mild fredy on ckd 4 -received gentle iv hydration and furocemide placed on hold for 2 days. patient constipation improved ,fredy also improved ,her cr seems near her baseline. moniter bmp in 1 week and start back lasix in 2-3 days. for constipation -added miralex in addition to colace and advised high fiber diet. overweight-advised to lose weight and cut down calories. leucocytosis seems reactive to above,improving -ua neg ,ct abd -mostly constipation/impaction ,lung bases also fine on ct. no fever ,asymptomatic. patient seen by pt -recomended home pt ,will add vna also. follow up with pcp,consider outpatient nephrology eval as per pcp for ckd. PLAN: moniter bmp in 1 week and start back lasix in 2-3 days moniter cbc in 1 week. follow up with pcp,consider outpatient nephrology eval as per pcp for ckd. Above management discussed with the patient in detail length she understand and in agreement with the above plan, time spent 40 minutes and 50% time spent on counseling. Time Attestation Total time managing care of this patient today: 40 mintues. Discharge Coordination Time (in mins): 40 min Quality: Safe Use of Opioids Does Pt have an Active Cancer Diagnosis on the Problem List?: No Quality: Stroke Does the patient have a stroke diagnosis?: No Physical Exam Vital Signs: Vital Signs: Last Vital Signs Temp 96.8 F 04/05/24 07:30 Pulse 58 04/05/24 07:30 Resp 16 04/05/24 07:30 BP 98/50 L 04/05/24 07:30 Pulse Ox 97 04/05/24 07:30 O2 Del Method Room Air 04/05/24 07:30 BMI result Body Mass Index 30.9 Appearance: Alert.? Oriented X3.? cvs: rrr, [id number] . res: clear to auscultation ,no rhonchii or wheezing abd: no rebound or guarding ,nt, bs present. ext pulses present , no cyanosis. neuro: axo3 , nonfocal. DS: Data Data Completed and Pending Labs on day of discharge: Laboratory Results - last 24 hr 04/04/24 04/04/24 04/04/24 11:11 16:12 19:54 POC Glucose 207 H 219 H 197 H 04/05/24 07:34 POC Glucose 182 H Imaging Chest x-ray: Radiologist's impression: ITS Impressions Abdomen/Pelvis CT 04/04/24 01:49 IMPRESSION: 1. Retained rectal stool with rectal expansion up to 7.5 cm and mild rectal thickening and minimal perirectal infiltrative change. Suspect a stercoral colitis. 2. Apparent liquid stool throughout the remaining colon. Fleischner guidelines were followed. Discharge Plan Discharge Anticipated Discharge Date/Time: 04/05/24 10:55 Patient Disposition: Home Health Service Discharge Diagnosis: fecal impaction ,constipation, fredy,mild leucocytosis Referrals: Physician,Unknown J [Primary Care Provider] - 1 Week Discharge Medications: New polyethylene glycol 3350 [Miralax] 17 gram/dose powder 17 g PO DAILY Qty: 510 0RF Continued (DME) lancets [FreeStyle Lancets] 28 gauge misc See Rx Instructions .ROUTE .COMPLEX Qty: 100 0RF Dose Instruction: USE DIRECTED TO CHECK BLOOD SUGAR TWICE A DAY Rx Instructions: USE DIRECTED TO CHECK BLOOD SUGAR TWICE A DAY duloxetine 20 mg capsule,delayed release(DR/EC) 20 mg PO BID Qty: 180 0RF melatonin 5 mg tablet 10 mg PO BEDTIME Qty: 90 3RF tizanidine 4 mg capsule 8 mg PO BEDTIME Qty: 60 0RF diclofenac sodium [Arthritis Pain (diclofenac)] 1 % gel 4 g topical QID PRN (Reason: Pain) Rx Instructions: apply to single knee, ankle, foot; for foot includes sole/toes/top of foot magnesium hydroxide [Milk of Magnesia] 400 mg/5 mL Suspension 30 ml PO DAILY PRN (Reason: Constipation) docusate sodium 100 mg Capsule 200 mg PO BEDTIME aspirin 81 mg tablet,delayed release (DR/EC) 81 mg PO BEDTIME (DME) FreeStyle Lite Strips Strip See Rx Instructions .Route Qty: 100 6RF Rx Instructions: Test 3 times Daily clopidogrel 75 mg tablet 75 mg PO BEDTIME Patient Comments: till 07/2024 mirtazapine 15 mg tablet 15 mg PO BEDTIME rosuvastatin 10 mg tablet 10 mg PO BEDTIME insulin glargine [Lantus Solostar U-100 Insulin] 100 unit/mL (3 mL) insulin pen 20 unit subcut DAILY Changed carvedilol 6.25 mg tablet 3.125 mg PO BIDWM Qty: 60 0RF Rx Instructions: must administer with a meal/food Held furosemide 20 mg tablet 20 mg PO BEDTIME Hold Instructions: Resume on 04/07/24. Discharge Orders: Discharge Order (Routine); Ordered 04/05/24 Ordered By: Ceci Haywood Diet: Advance to usual diet Activity on Discharge: As tolerated Stand Alone Forms: Patient Portal Discharge page Print Language: South Korean Other Ambulatory Orders: Basic Metabolic Panel (Routine) Timeframe: 1 Week Facility: [facility] - Location: Laboratory Ordered By: Ceci Haywood Complete Blood Count no Diff (Routine) Timeframe: 1 Week Facility: [facility] - Location: Laboratory Ordered By: Ceci Haywood Care Plan Goals: Patient is admitted for stool impaction and constipation- s/p digital disimpaction ,passed multiple bm's, als had mild fredy on ckd 4 -received gentle iv hydration and furocemide placed on hold for 2 days. patient constipation improved ,fredy also improved ,her cr seems near her baseline. moniter bmp in 1 week and start back lasix in 2-3 days. htn : blood pressure flactuating , coreg adjusted to 3.125 mg po bid. for constipation -added miralex in addition to colace and advised high fiber diet. overweight-advised to lose weight and cut down calories. leucocytosis seems reactive to above,improving -ua neg ,ct abd -mostly constipation/impaction ,lung bases also fine on ct. no fever ,asymptomatic. patient seen by pt -recomended home pt ,will add vna also. follow up with pcp,consider outpatient nephrology eval as per pcp for ckd. Health Concerns: as above. Plan of Treatment: as above. Assessment: as above.
[2024-04-05 11:15] LABS: Glucose, Whole Blood 156 mg/dL (60-115)
--- NOTE | 2024-04-05 11:23 | P.F2F_ITS ---
Service Date Service Date: 04/05/24 Encounter Date of encounter: 04/05/24 Encounter: fredy on ckd 4 , constipation Reasons for Services Signs and symptoms assessed: new symptoms -dehydration ,constipation Reason for detention: CV/CP assess and/or care, medication management, medication treatment and teach disease management Reason for physical therapy: home safety and mobility, therapeutic exercises, restore joint function, gait/transfer training, assess need for DME, ADL training, energy conservation and other MD Overseeing Care: Jocelyn Hickey Homebound: Leaving the home is medically contraindicated at this time without the asist of a device and/or another person due th the listed conditions above and below. Reason homebound: weakness related to hospital stay Homebound supporting statement: patient is generlaised weak post hospitlisation ,has mutliple coomorbidities including fredy on ckd ,htn -needs help with appointments ,labs draws , appointment , Bp monitering ,disease management. Certification: Based on the above findings, I certify that this patient is confined to the home and needs intermittent detention care, physical therapy and/or speech therapy, or continues to need occupational therapy. The patient is under my care, and I have initiated the establishment of the plan of care. The patient will be followed by a physician who will periodically review the plan of care. Time Spent With Patient Time: Total time managing care of this patient today ____ minutes.
--- NOTE | 2024-04-05 11:37 | MHC.CM.PN ---
Addendum entered by Macie Jean-Baptiste 04/05/24 14:02: [facility] IS OFFERING SERVICES THEY WILL CONTACT PT DIRECTLY FOR SOC Original Note: PT REPORTS SHE LIVES ALONE IN [facility] SHE SAYS SHE USED TO HAVE CLEANING SERVICES VIA [facility], HOWEVER SHE GOT RID OF THEM BECAUSE THEY NEVER GOT IT RIGHT SHE SAYS SHE HAS A ROLLATOR SHE USES AT ALL TIMES HCP ON FILE PCP: ZENY HAMMOND IMM DELIVERED DCP: HOME WITH NEW [facility]NA PER DISCUSSION WITH PT, REFERRAL PLACED TO [facility] FOR PT AND SN PTS BROTHER WILL TRANSPORT
== END 2024-04-05 14:03 | disposition home health service (06) | DRG 389 ==
LOC: HO.ED 04-04 01:17 → HO.EDOVER 04-04 04:21 → HO.S3 04-04 07:20
PROVIDERS: Admitting Provider Internal Medicine; Emergency Provider Internal Medicine; PCP Internal Medicine; Visit Provider Internal Medicine
DX: K56.41 Fecal impaction (principal); I13.0 Hypertensive heart and chronic kidney disease with heart failure and stage 1 through stage 4 chronic kidney disease, or unspecified chronic kidney disease; N17.9 Acute kidney failure, unspecified; I50.22 Chronic systolic (congestive) heart failure; N18.32 Chronic kidney disease, stage 3b; E11.22 Type 2 diabetes mellitus with diabetic chronic kidney disease; Z86.73 Personal history of transient ischemic attack (TIA), and cerebral infarction without residual deficits; Z86.711 Personal history of pulmonary embolism; Z87.891 Personal history of nicotine dependence; Z79.4 Long term (current) use of insulin; Z79.02 Long term (current) use of antithrombotics/antiplatelets; Z79.82 Long term (current) use of aspirin; Z79.899 Other long term (current) drug therapy
CPT/HCPCS: 36415; 74176; 80053; 82947; 85025; 97162; 99285

== ENCOUNTER → 2024-04-04 04:20 | Outpatient (BNV) | payer OTHER, SELFPAY | PROVIDERS: Admitting Provider Internal Medicine; Emergency Provider Internal Medicine; Visit Provider Internal Medicine | DX: N17.9 Acute kidney failure, unspecified (principal); N18.32 Chronic kidney disease, stage 3b; K56.41 Fecal impaction; G45.9 Transient cerebral ischemic attack, unspecified; E78.00 Pure hypercholesterolemia, unspecified; I25.10 Atherosclerotic heart disease of native coronary artery without angina pectoris; I42.9 Cardiomyopathy, unspecified; E11.69 Type 2 diabetes mellitus with other specified complication; E66.9 Obesity, unspecified | CPT/HCPCS: 99223; 99239; 99499; G0180 ==

== ENCOUNTER 2024-04-06 17:29 | Emergency (ER) | payer OTHER, SELFPAY ==
[2024-04-06] VITALS (8 sets, daily range): BP systolic 106–130; BP diastolic 48–66; PULSE 60–72; RESP 17–18; TEMP 36.6–37.1; O2SAT 95–98; BMI 31.6
--- NOTE | 2024-04-06 17:47 | PC.NURSE ---
Pt presents to ED via EMS from home, visiting nurse called due to low BP readings in 70s systolic. Pt was also reporting light-headedness and dizziness. EMS found pt to be normotensive. Pt noted bright red blood in stool this morning, describes as 3 tablespoons worth, blood clots present. Reports she was here at [facility] Saturday for fecal disimpaction. Denies abd pain, CP, SOB, N/V/D, fevers. Remains dizzy at this time that worsens with movement. Alert and oriented, breathing even and unlabored, skin pale and warm. VSS, normotensive.
--- NOTE | 2024-04-06 18:35 | ED_ITS ---
HPI - General Adult General Chief complaint: General Medical Stated complaint: blood in stool, hypotension Time Seen by Provider: 04/06/24 17:55 Source: patient Mode of arrival: ambulatory Limitations: no limitations History of Present Illness HPI narrative: Patient's history of constipation was seen here on 04/03 manual disimpaction was done patient's discharge yesterday today patient had blood in the stool about handful followed by the soft stool no significant abdominal pain patient had blood in the depends 2nd time also but less amount feeling weak visiting nurse noticed blood pressure in low 70s patient not on any anticoagulant on arrival patient's blood pressure was 130/56 with heart rate of 66 Related Data Home Medications ?Medication ?Instructions ?Recorded ?Confirmed aspirin 81 mg tablet,delayed 81 mg PO BEDTIME 06/14/23 04/04/24 release clopidogrel 75 mg tablet 75 mg PO BEDTIME 03/26/24 04/04/24 insulin glargine 100 unit/mL (3 20 unit subcut DAILY 03/26/24 04/04/24 mL) subcutaneous pen (Lantus Solostar U-100 Insulin) mirtazapine 15 mg tablet 15 mg PO BEDTIME 03/26/24 04/04/24 rosuvastatin 10 mg tablet 10 mg PO BEDTIME 03/26/24 04/04/24 diclofenac sodium 1 % topical gel 4 g topical QID PRN Pain 04/04/24 04/04/24 (Arthritis Pain (diclofenac)) docusate sodium 100 mg capsule 200 mg PO BEDTIME 04/04/24 04/04/24 furosemide 20 mg tablet 20 mg PO BEDTIME 04/04/24 04/04/24 magnesium hydroxide 400 mg/5 mL 30 ml PO DAILY PRN Constipation 04/04/24 04/04/24 oral suspension (Milk of Magnesia) Previous Rx's ?Medication ?Instructions ?Recorded lancets 28 gauge (FreeStyle ##100 04/29/23 Lancets) blood sugar diagnostic (FreeStyle #100 ea 10/17/23 Lite Strips) duloxetine 20 mg capsule,delayed 20 mg PO BID #180 caps 02/27/24 release melatonin 5 mg tablet 10 mg (2 x 5 mg) PO BEDTIME #90 03/19/24 tabs tizanidine 4 mg capsule 8 mg (2 x 4 mg) PO BEDTIME muscle 03/19/24 spasticity #60 caps polyethylene glycol 3350 17 17 g PO DAILY #510 grams 04/04/24 gram/dose oral powder (Miralax) carvedilol 6.25 mg tablet 3.125 mg (1/2 x 6.25 mg) PO BIDWM 04/05/24 #60 tabs Allergies Allergy/AdvReac Type Severity Reaction Status Date / Time levofloxacin [From LEVAQUIN] Allergy Intermediate RASH Verified 04/06/24 17:43 eszopiclone [From LUNESTA] Allergy Mild HALLUCINATI Verified 04/03/24 20:25 ONS zolpidem [Ambien] Allergy Unknown sleep Verified 04/03/24 20:25 walking meperidine [Meperidine] AdvReac Intermediate hallucinati Verified 04/03/24 20:25 ons pregabalin [From LYRICA] AdvReac Unknown AGITATION Verified 04/03/24 20:25 trazodone [TRAZODONE] AdvReac Unknown AGITATION Verified 04/03/24 20:25 Review of Systems 2 Review of Systems: Yes all other systems are reviewed and are negative PMFSH Past Medical History Medical History Fracture, ribs Obesity Type 2 diabetes mellitus with obesity Pneumonia Type 2 diabetes mellitus with hyperglycemia Pulmonary embolism Congestive heart failure Surgical History History of surgery on lower extremity H/O prior ablation treatment History of cervical spinal surgery History of hysterectomy Family History Family History Father Diabetes CVD (cardiovascular disease) Mother No problems noted. Social History Social History Household Members: None Housing: Apartment Do you presently have visiting nurse or other home services: No Alcohol intake: never Patient Tobacco Use Status: Former Tobacco user Tobacco use type: Cigarette Smoked in Last 30 Days: No e-Cigarette/Vaping Use: Never Used Second Hand Smoke Exposure: No Use of substances other than those prescribed or required for medical reasons: No Advance Directives: Yes Advance Directives on File: Yes Advance Directives Date on File: 01/27/21 service: No Current occupational status: retired Current occupational exposures/hazards: No Cognitive needs: Yes (walker/cane) Hearing needs: No Vision needs: Yes (glasses) Physical Exam ED Vital Signs: Vital Signs - 24 hr 04/06/24 17:35 04/06/24 17:44 04/06/24 17:44 Temperature 98.7 F 98.7 F Pulse Rate 66 62 Pulse Rate [Bilateral Radial] 66 Respiratory Rate 18 17 Blood Pressure 130/56 L 130/56 L Pulse Oximetry 97 97 Oxygen Delivery Method Room Air Room Air 04/06/24 19:14 04/06/24 20:10 04/06/24 20:15 Temperature 98.6 F Pulse Rate 61 60 64 Pulse Rate [Bilateral Radial] Respiratory Rate 17 Blood Pressure 115/56 L 121/58 L 127/48 L Pulse Oximetry 95 Oxygen Delivery Method Room Air 04/06/24 20:16 Temperature Pulse Rate 72 Pulse Rate [Bilateral Radial] Respiratory Rate Blood Pressure 119/52 L Pulse Oximetry Oxygen Delivery Method BMI result Body Mass Index 31.6 Appearance: Alert. Oriented X3. No acute distress. Eyes: No pallor or icterus ENT: Pharynx normal. Oral Mucosa moist Neck: Normal inspection. Neck supple. CVS: Normal heart rate and rhythm. Pulses normal. Respiratory: No respiratory distress. Equal air entry bilateral, no wheezing/rales/rhonchi Abdomen: Soft and mild deep tenderness lower abdomen Bowel sounds are present, no mass palpable, no CVA tenderness rectal: Brown stool no active bleeding internal hemorrhoids Skin: Skin warm and dry. Normal skin color. Normal skin turgor. Extremities: No lower extremity edema. No calf tenderness Neuro: Oriented X 3. No motor deficit. Medical Decision Making Medical Decision Making [facility] Narrative: Patient has significant constipation status post manual disimpaction with history of hemorrhoids noticed to have rectal bleeding again likely from internal hemorrhoids no active bleeding in the ER vitals are stable orthostatics are normal will discharge patient back home advised to continue stool softener report to the ER if bleeding continues Differential Diagnosis Differential Diagnoses: The differential diagnosis associated with the presentation includes Lab Data [facility] Lab Attestation statement: I reviewed the patient's lab results. 04/06/24 18:51 04/06/24 18:51 Labs: Lab Results 04/06/24 Range/Units 18:51 WBC 7.8 (4.8-10.8) X10*3/uL RBC 3.34 L (4.20-5.50) X10*6/uL Hgb 8.5 L (12.0-16.0) g/dl Hct 27.5 L (37.0-47.0) % MCV 82.3 (80.0-98.0) fL MCH 25.4 L (27.0-33.0) pg MCHC 30.9 L (31.0-35.0) g/dl RDW 15.9 (11.0-16.0) % Plt Count 286 (160-400) X10*3/uL MPV 9.9 (9.4-12.3) fL Immature Gran % (Auto) 2.3 H (0.0-0.4) % Neut % (Auto) 56.8 (45-73) % Lymph % (Auto) 26.2 (20-40) % [place] % (Auto) 9.2 (2-11) % Eos % (Auto) 4.7 H (0-4) % Baso % (Auto) 0.8 (0-2) % Lymph # (Auto) 2.1 (1.2-4.9) X10*3/uL [place] # (Auto) 0.7 (0.1-1.2) X10*3/uL Eos # (Auto) 0.4 (0.0-0.4) X10*3/uL Baso # (Auto) 0.1 (0.0-0.2) X10*3/uL Abs Immat Gran (auto) 0.18 H (0.00-0.03) X10*3/uL Absolute Neuts (auto) 4.5 (2.0-8.3) x10*3/uL Absolute Nucleated RBC 0.000 (0.0-0.012) X10*3/uL Nucleated RBC % (auto) 0.0 (0.0-0.2) /100WBC Sodium 137 (135-145) mmol/L Potassium 3.5 (3.3-5.1) mmol/L Chloride 101 (96-108) mmol/L Carbon Dioxide 25 (22-29) mmol/L Anion Gap 15 (12-20) BUN 61 H (9-16) mg/dL Creatinine 1.63 H (0.5-1.4) mg/dL Estim Creat Clear Calc 21.4 Estimated GFR 30 Random Glucose 89 (60-115) mg/dL Calcium 8.1 L (8.4-10.2) mg/dL Total Bilirubin 0.4 (0.0-1.0) mg/dL AST 21 (5-31) U/L ALT 10 (0-31) U/L Alkaline Phosphatase 101 (39-117) U/L Total Protein 7.4 (6.5-8.0) g/dL Albumin 3.8 (3.5-5.0) g/dL Discharge Plan Discharge Clinical Impression: Rectal bleeding, Hemorrhoid Patient Disposition: Home, Self-Care Instructions: Hemorrhoids (ED), Rectal Bleeding (ED) Additional Instructions: Your bleeding rectum is likely from internal hemorrhoids from severe constipation Drink plenty of fluids do not strain have stool softener If you continue to have rectal bleed come back to the ER for further evaluation Prescriptions: No Action (DME) lancets [FreeStyle Lancets] 28 gauge misc See Rx Instructions .ROUTE .COMPLEX Qty: 100 0RF Dose Instruction: USE DIRECTED TO CHECK BLOOD SUGAR TWICE A DAY Rx Instructions: USE DIRECTED TO CHECK BLOOD SUGAR TWICE A DAY duloxetine 20 mg capsule,delayed release(DR/EC) 20 mg PO BID Qty: 180 0RF melatonin 5 mg tablet 10 mg PO BEDTIME Qty: 90 3RF tizanidine 4 mg capsule 8 mg PO BEDTIME Qty: 60 0RF polyethylene glycol 3350 [Miralax] 17 gram/dose powder 17 g PO DAILY Qty: 510 0RF diclofenac sodium [Arthritis Pain (diclofenac)] 1 % gel 4 g topical QID PRN (Reason: Pain) Rx Instructions: apply to single knee, ankle, foot; for foot includes sole/toes/top of foot magnesium hydroxide [Milk of Magnesia] 400 mg/5 mL Suspension 30 ml PO DAILY PRN (Reason: Constipation) docusate sodium 100 mg Capsule 200 mg PO BEDTIME furosemide 20 mg tablet 20 mg PO BEDTIME Hold Instructions: Resume on 04/07/24. carvedilol 6.25 mg tablet 3.125 mg PO BIDWM Qty: 60 0RF Rx Instructions: must administer with a meal/food aspirin 81 mg tablet,delayed release (DR/EC) 81 mg PO BEDTIME (DME) FreeStyle Lite Strips Strip See Rx Instructions .Route Qty: 100 6RF Rx Instructions: Test 3 times Daily clopidogrel 75 mg tablet 75 mg PO BEDTIME Patient Comments: till 07/2024 mirtazapine 15 mg tablet 15 mg PO BEDTIME rosuvastatin 10 mg tablet 10 mg PO BEDTIME insulin glargine [Lantus Solostar U-100 Insulin] 100 unit/mL (3 mL) insulin pen 20 unit subcut DAILY Print Language: Telugu
[2024-04-06 18:55] LABS: MANUAL DIFF FLAG NO
[2024-04-06 19:07] LABS: Basophils Absolute Auto 0.1 X10*3/uL (0.0-0.2); Basophils Percent Auto 0.8 % (0-2); Eosinophils Absolute Auto 0.4 X10*3/uL (0.0-0.4); Eosinophils Percent Auto 4.7 % (0-4); Hematocrit 27.5 % (37.0-47.0); Hemoglobin 8.5 g/dl (12.0-16.0); Imm Gran Abs Auto 0.18 X10*3/uL (0.00-0.03); Imm Gran Pct Auto 2.3 % (0.0-0.4); Lymphocytes Absolute Auto 2.1 X10*3/uL (1.2-4.9); Lymphocytes Percent Auto 26.2 % (20-40); Mean Corpuscular HGB Conc 30.9 g/dl (31.0-35.0); Mean Corpuscular Hemoglobin 25.4 pg (27.0-33.0); Mean Corpuscular Volume 82.3 fL (80.0-98.0); Mean Platelet Volume 9.9 fL (9.4-12.3); Monocytes Absolute Auto 0.7 X10*3/uL (0.1-1.2); Monocytes Percent Auto 9.2 % (2-11); Neutrophils Absolute Auto 4.5 x10*3/uL (2.0-8.3); Neutrophils Percent Auto 56.8 % (45-73); Platelet Count 286 X10*3/uL (160-400); Red Blood Count 3.34 X10*6/uL (4.20-5.50); Red Cell Distribution Width 15.9 % (11.0-16.0); White Blood Count 7.8 X10*3/uL (4.8-10.8)
[2024-04-06 19:12] LABS: Alanine Aminotransferase 10 U/L (0-31); Albumin Level 3.8 g/dL (3.5-5.0); Alkaline Phosphatase 101 U/L (39-117); Anion Gap 15 (12-20); Aspartate Amino Transferase 21 U/L (5-31); Bilirubin Total 0.4 mg/dL (0.0-1.0); Blood Urea Nitrogen 61 mg/dL (9-16); Calcium 8.1 mg/dL (8.4-10.2); Carbon Dioxide 25 mmol/L (22-29); Chloride 101 mmol/L (96-108); Creatinine Clr Calc Pharmacy 21.4; Estimated Glomerular Filt Rate 30; Glucose Random 89 mg/dL (60-115); Potassium 3.5 mmol/L (3.3-5.1); Sodium 137 mmol/L (135-145); Total Protein 7.4 g/dL (6.5-8.0)
== END 2024-04-06 21:40 | disposition home or self-care (01) ==
PROVIDERS: Emergency Provider Internal Medicine; PCP Internal Medicine
DX: K62.5 Hemorrhage of anus and rectum (principal); K64.9 Unspecified hemorrhoids; R53.1 Weakness; E11.9 Type 2 diabetes mellitus without complications; E78.00 Pure hypercholesterolemia, unspecified; Z86.711 Personal history of pulmonary embolism; Z86.73 Personal history of transient ischemic attack (TIA), and cerebral infarction without residual deficits; Z79.4 Long term (current) use of insulin; Z79.84 Long term (current) use of oral hypoglycemic drugs; Z79.899 Other long term (current) drug therapy; Z79.82 Long term (current) use of aspirin; Z79.02 Long term (current) use of antithrombotics/antiplatelets; Z87.891 Personal history of nicotine dependence
CPT/HCPCS: 36415; 80053; 85025; 99283; 99284

== ENCOUNTER → 2024-04-17 23:59 | Outpatient (BNV) | payer OTHER, SELFPAY | PROVIDERS: PCP Internal Medicine; Visit Provider Internal Medicine | DX: E11.22 Type 2 diabetes mellitus with diabetic chronic kidney disease (principal); N18.4 Chronic kidney disease, stage 4 (severe); E78.00 Pure hypercholesterolemia, unspecified | CPT/HCPCS: G0180 ==

== ENCOUNTER 2024-04-18 17:16 | Emergency (ER) | payer OTHER, SELFPAY ==
[2024-04-18] VITALS (7 sets, daily range): BP systolic 124–188; BP diastolic 66–96; PULSE 71–94; RESP 15–18; TEMP 36.5–36.9; O2SAT 96–98; BMI 27.3
--- NOTE | ~2024-04-18 | XR_ITS ---
EXAMINATION: XR HIP, RIGHT CLINICAL INFORMATION: Fall. Ecchymosis. COMPARISON: CT dated 04/04/2024 TECHNIQUE: AP and frog-leg lateral views of the right hip. AP view of the pelvis. FINDINGS: Bones are osteopenic. Mild osteoarthritis in the bilateral hips and SI joints. No acute fractures are identified. Degenerative spondylosis is present in the lower lumbar spine. Marked atherosclerotic calcifications in the iliac and femoral arteries. Old healed left inferior pubic ramus fracture. Surgical clips are present in the right hemipelvis. XR/XR hip RT w PEL1V IMPRESSION: 1. No acute fracture or malalignment. 2. Mild osteoarthritis in the hips and SI joints.
--- NOTE | ~2024-04-18 | CT_ITS ---
EXAMINATION: HEAD CT WITHOUT CONTRAST CERVICAL SPINE CT WITHOUT CONTRAST CLINICAL INFORMATION: Fall with head strike. Dizziness. COMPARISON: 07/23/2023 TECHNIQUE: Contiguous axial imaging of the head was performed without the administration of IV contrast. Axial multidetector volumetric images were also performed through the cervical spine without intravenous contrast. Multiplanar reconstructed images in coronal and sagittal orientations were submitted. This CT examination was performed using dose optimization techniques as appropriate, variously including the following: *Automated exposure control *Adjustment of mA and/or kV according to patient size (this includes techniques or standardized protocols for targeted exams where dose is matched to indication/reason for exam; i.e. extremities or head) *Use of iterative reconstruction technique DOSE: 908 mGy-cm FINDINGS: HEAD: There is no evidence of acute intracranial hemorrhage or territorial infarction. No abnormal mass-effect or midline shift. No extra-axial fluid collections. [place] to white matter differentiation is well preserved. Mild enlargement of the ventricles, sulci, and extra-axial CSF spaces is indicative of parenchymal volume loss. 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 Multiple areas of hypoattenuation in the subcortical and periventricular white matter are most consistent with chronic microangiopathic changes. Calcific atherosclerosis is present within the cavernous segments of the internal carotid arteries. Hyperostosis frontalis interna. No acute osseous findings. Soft tissues are unremarkable. The sinuses and mastoid air cells are clear. CERVICAL SPINE: ACDF plate at C4-C5 is intact. Solid osseous bridging is present across the interbody spaces at C4-C5 and C5-C6 as well as at the facet joints at these levels. Vertebral body heights are normal. No fractures of the vertebral bodies or posterior elements. Vertebral alignment is normal. No subluxation. There is severe degeneration at the articulation of the right lateral mass of C1 with the lateral mass of C2 with cortical irregularity, erosion, and sclerosis. More mild to moderate osteoarthritis of the left lateral mass articulation and at the atlantodental articulation. Marked degenerative disc disease is present at C6-C7. Multilevel facet arthropathy is most notable at C2-C3 and C3-C4 bilaterally. Moderate central canal stenosis at C3-C4 by disc osteophytic bulge and calcification of the hypertrophy ligamentum flavum. There is marked neural foraminal encroachment on the right and C4-C5 and C6-C7 due to uncovertebral and facet osteophytes. No significant paravertebral soft tissue swelling. Atherosclerotic calcifications are present in the carotid arteries. Imaged portions of the lung apices are clear. CT/CT cervical spine wo IV con IMPRESSION: 1. No acute intracranial pathology. 2. No acute fracture or malalignment in the cervical spine. 3. Multilevel degenerative spondylosis in the cervical spine with central canal stenosis at C3-C4 and multilevel neural foraminal encroachment.
--- NOTE | 2024-04-18 17:31 | ECG_ITS ---
Test Reason : DIZZINESS/WEAKNESS Blood Pressure : / mmHG Vent. Rate : 069 BPM Atrial Rate : 069 BPM P-R Int : 214 ms QRS Dur : 152 ms QT Int : 440 ms P-R-T Axes : 007 -43 107 degrees QTc Int : 471 ms Sinus rhythm with sinus arrhythmia with 1st degree A-V block Left axis deviation Left bundle branch block Abnormal ECG When compared with ECG of 23-JUL-2023 15:00, No significant change was found Referred By: Sandhya Vance Electronically Signed By:KARINA ISAAC
[2024-04-18 17:56] LABS: Appearance Urine Cloudy; Color Urine Yellow; Glucose Urine UA 100 mg/dL (Negative); Leukocyte Esterase Urine Moderate (2+) (Negative); Nitrite Urine Positive (Negative); Specific Gravity - Urine 1.015 (1.005-1.025); UMIC TRIGGER UACC YES; Urine Blood Negative (Negative); Urine Ketones Negative (Negative); Urine Protein 30 (1+) mg/dL (Neg-Trace)
[2024-04-18 18:01] LABS: Bacteria Urine 4+ (None Seen); RBC Urine 0-2 /HPF (0-2); UACC Culture Trigger YES; WBC Urine >50 /HPF (0-5)
[2024-04-18 18:36] LABS: MANUAL DIFF FLAG NO
[2024-04-18 18:38] LABS: Basophils Percent Auto 0.4 % (0-2); Eosinophils Absolute Auto 0.1 X10*3/uL (0.0-0.4); Hematocrit 31.2 % (37.0-47.0); Hemoglobin 9.5 g/dl (12.0-16.0); Imm Gran Abs Auto 0.03 X10*3/uL (0.00-0.03); Imm Gran Pct Auto 0.4 % (0.0-0.4); Lymphocytes Absolute Auto 1.3 X10*3/uL (1.2-4.9); Mean Corpuscular HGB Conc 30.4 g/dl (31.0-35.0); Mean Corpuscular Hemoglobin 24.9 pg (27.0-33.0); Mean Corpuscular Volume 81.7 fL (80.0-98.0); Mean Platelet Volume 9.2 fL (9.4-12.3); Monocytes Absolute Auto 0.6 X10*3/uL (0.1-1.2); Monocytes Percent Auto 8.3 % (2-11); Neutrophils Absolute Auto 4.9 x10*3/uL (2.0-8.3); Neutrophils Percent Auto 69.9 % (45-73); Platelet Count 369 X10*3/uL (160-400); Red Blood Count 3.82 X10*6/uL (4.20-5.50); Red Cell Distribution Width 15.8 % (11.0-16.0)
[2024-04-18 18:51] LABS: Alanine Aminotransferase 7 U/L (0-31); Albumin Level 4.1 g/dL (3.5-5.0); Alkaline Phosphatase 104 U/L (39-117); Anion Gap 16 (12-20); Aspartate Amino Transferase 17 U/L (5-31); Bilirubin Direct 0.3 mg/dL (0.0-0.5); Bilirubin Total 0.5 mg/dL (0.0-1.0); Blood Urea Nitrogen 27 mg/dL (9-16); Calcium 8.7 mg/dL (8.4-10.2); Carbon Dioxide 23 mmol/L (22-29); Chloride 109 mmol/L (96-108); Creatinine Clr Calc Pharmacy 28.3; Estimated Glomerular Filt Rate 41; Glucose Random 133 mg/dL (60-115); Magnesium 1.9 mg/dL (1.6-2.6); Potassium 3.6 mmol/L (3.3-5.1); Sodium 144 mmol/L (135-145)
[2024-04-18 18:57] LABS: Troponin-I High Sensitivity 7.5 ng/L (<3.5-17.0)
[2024-04-18 20:10] LABS: Glucose, Whole Blood 115 mg/dL (60-115)
--- NOTE | 2024-04-18 20:20 | ED.GENADULT ---
HPI - General Adult General Chief complaint: Dizziness Stated complaint: dizziness, seen with no findings Time Seen by Provider: 04/18/24 20:08 Source: patient, EMS and RN notes reviewed Mode of arrival: EMS Limitations: no limitations History of Present Illness ED Provider: Nazario Carpio NP HPI narrative: Patient is an 84-year-old female with history of chronic renal failure, HTN, DM, PE presenting to the emergency department with complaint of for episodes of dizziness in the last 2 weeks. States today episode lasted 1 hour. She describes the episodes as the room spinning. States they have lasted anywhere from 20 minutes to 2 hours. Denies current dizziness. States that she went to [facility] for the same symptoms 2 days ago, had a head CT which was negative. She also states that she had a mechanical fall several days ago for which she was never evaluated. States the wheel of her walker got stuck on her bed and she fell to the floor. Denies loss of consciousness. States she was recently seen here for constipation, had disimpaction, unsure if this is related to her current symptoms. MD complaint: dizziness Onset (ago): week(s) Treatments prior to arrival: none Related Data Home Medications ?Medication ?Instructions ?Recorded ?Confirmed aspirin 81 mg tablet,delayed 81 mg PO BEDTIME 06/14/23 04/04/24 release clopidogrel 75 mg tablet 75 mg PO BEDTIME 03/26/24 04/04/24 insulin glargine 100 unit/mL (3 20 unit subcut DAILY 03/26/24 04/04/24 mL) subcutaneous pen (Lantus Solostar U-100 Insulin) mirtazapine 15 mg tablet 15 mg PO BEDTIME 03/26/24 04/04/24 rosuvastatin 10 mg tablet 10 mg PO BEDTIME 03/26/24 04/04/24 diclofenac sodium 1 % topical gel 4 g topical QID PRN Pain 04/04/24 04/04/24 (Arthritis Pain (diclofenac)) docusate sodium 100 mg capsule 200 mg PO BEDTIME 04/04/24 04/04/24 furosemide 20 mg tablet 20 mg PO BEDTIME 04/04/24 04/04/24 magnesium hydroxide 400 mg/5 mL 30 ml PO DAILY PRN Constipation 04/04/24 04/04/24 oral suspension (Milk of Magnesia) Previous Rx's ?Medication ?Instructions ?Recorded lancets 28 gauge (FreeStyle ##100 04/29/23 Lancets) blood sugar diagnostic (FreeStyle #100 ea 10/17/23 Lite Strips) duloxetine 20 mg capsule,delayed 20 mg PO BID #180 caps 02/27/24 release melatonin 5 mg tablet 10 mg (2 x 5 mg) PO BEDTIME #90 03/19/24 tabs polyethylene glycol 3350 17 17 g PO DAILY #510 grams 04/04/24 gram/dose oral powder (Miralax) carvedilol 6.25 mg tablet 3.125 mg (1/2 x 6.25 mg) PO BIDWM 04/05/24 #60 tabs tizanidine 4 mg capsule 8 mg (2 x 4 mg) PO BEDTIME muscle 04/16/24 spasticity #60 caps cefuroxime axetil 500 mg tablet 500 mg PO BID #13 tabs 04/19/24 Allergies Allergy/AdvReac Type Severity Reaction Status Date / Time levofloxacin [From LEVAQUIN] Allergy Intermediate RASH Verified 04/18/24 17:34 eszopiclone [From LUNESTA] Allergy Mild HALLUCINATI Verified 04/18/24 17:34 ONS zolpidem [Ambien] Allergy Unknown sleep Verified 04/18/24 17:34 walking meperidine [Meperidine] AdvReac Intermediate hallucinati Verified 04/18/24 17:34 ons pregabalin [From LYRICA] AdvReac Unknown AGITATION Verified 04/18/24 17:34 trazodone [TRAZODONE] AdvReac Unknown AGITATION Verified 04/18/24 17:34 Review of Systems Review of Systems: As per HPI. Yes all other systems are reviewed and are negative Constitutional: Constitutional: Reports as per HPI Neurologic: Denies Abnormal speech present [facility] Past Medical History Medical History Fracture, ribs Obesity Type 2 diabetes mellitus with obesity Pneumonia Type 2 diabetes mellitus with hyperglycemia Pulmonary embolism Congestive heart failure Surgical History History of surgery on lower extremity H/O prior ablation treatment History of cervical spinal surgery History of hysterectomy Family History Family History Father Diabetes CVD (cardiovascular disease) Mother No problems noted. Social History Social History Household Members: None Housing: Apartment Do you presently have visiting nurse or other home services: No Alcohol intake: former Patient Tobacco Use Status: Former Tobacco user Tobacco use type: Cigarette Smoked in Last 30 Days: No e-Cigarette/Vaping Use: Never Used Second Hand Smoke Exposure: No Use of substances other than those prescribed or required for medical reasons: No Advance Directives: Yes Advance Directives on File: Yes Advance Directives Date on File: 01/27/21 service: No Current occupational status: retired Current occupational exposures/hazards: No Cognitive needs: Yes (walker/cane) Hearing needs: No Vision needs: Yes (glasses) Physical Exam ED Vital Signs: Vital Signs - 24 hr 04/18/24 17:33 04/18/24 18:25 04/18/24 18:26 Temperature 97.7 F Pulse Rate 77 79 87 Respiratory Rate 18 Blood Pressure 158/87 H 167/72 H 166/77 H Pulse Oximetry 98 Oxygen Delivery Method 04/18/24 18:28 04/18/24 20:01 04/18/24 21:49 Temperature 98.3 F 98.4 F Pulse Rate 94 85 83 Respiratory Rate 18 15 Blood Pressure 188/96 H 142/87 H 124/66 Pulse Oximetry 97 96 Oxygen Delivery Method Room Air Room Air 04/19/24 00:21 Temperature 98.2 F Pulse Rate 82 Respiratory Rate 15 Blood Pressure 141/72 H Pulse Oximetry 95 Oxygen Delivery Method Room Air BMI result Body Mass Index 27.3 Const General: cooperative, healthy appearing and no acute distress Orientation/consciousness: oriented to person, oriented to place, oriented to time and patient oriented x3 Limitations: no limitations HENMT Head: Yes normocephalic and Yes atraumatic Ears: external ears normal General nose exam: Normal external nose present Face and sinus: Yes face symmetric Mouth: oropharynx normal and moist mucous membranes Throat: Yes uvula midline Eyes Pupils: Equal, round and reactive pupils present EOM: EOMs intact bilaterally and No Nystagmus present Neck Neck: Yes normal visual inspection, Yes no meningeal signs and Yes supple Resp Effort & Inspection: normal respiratory effort and able to speak in complete sentences Auscultation: clear to auscultation bilaterally Cardio Rate: regular rate Rhythm: regular rhythm Heart sounds: S1 normal heart sound present and S2 normal heart sound present GI Palpation (GI): Soft to palpation and nontender Auscultation: normoactive bowel sounds General: Yes no CVA tenderness Back/Spine/Pelvis Back: no CVA tenderness Skin General skin exam: elasticity normal and turgor normal Neuro General: oriented to person, oriented to place, oriented to time, patient oriented x3, gait normal, tone normal, moves all extremities, Normal light touch and pain sensation, no meningeal signs, no focal motor deficits, CN's II-XI intact bilaterally and deep tendon reflexes 2+ bilaterally Cranial nerves: Yes Equal, round and reactive pupils present and No Nystagmus present Cognition (Neuro): normal cognition Speech: No Abnormal speech present Motor exam (neuro): 5/5 motor strength present throughout, Pronator motor function not present, no tremor noted, no asterixis, Motor fasciculations not present, Normal motor muscle tone present throughout and Motor abnormalities not present Sensory Exam: Normal double simultaneous stimulation for sensation Extrem General: Yes full ROM, Yes no pedal edema and Yes no calf tenderness Psych Mental Status: mental status grossly normal Affect: normal affect Thought process: Normal thought process present NIH Stroke Scale Internal: Initial- Upon Arrival Time: 20:50 Level of Consciousness: Alert Level of Consciousness Questions: Answers both questions correctly Level of Consciousness Commands: Performs both tasks correctly Best Gaze: Normal Visual: No visual loss Facial Palsy: Normal Motor Arm (Right): No drift Motor Arm (Left): No drift Motor Leg (Right): No drift Motor Leg (Left): No drift Limb Ataxia: Absent Sensory: Normal Best Language: No aphasia Dysarthia: Normal Extinction and Inattention: No abnormality Score: 0 Medications Administered Discontinued Medications Generic Name Dose Route Start Last Admin Trade Name Freq PRN Reason Stop Dose Admin Cefuroxime Axetil 500 mg 04/18/24 22:24 04/18/24 23:49 Cefuroxime Axetil 500 Mg Tablet PO 04/18/24 22:25 500 mg ONCE ONE Administration Medical Decision Making Medical Decision Making [facility] Narrative: Patient is an 84-year-old female with history of chronic renal failure, HTN, DM, PE presenting to the emergency department with complaint of for episodes of dizziness in the last 2 weeks. On exam patient is awake, A+Ox3, VS WNL, afebrile, normal neurological exam without focal deficits, physical exam findings as above. Given reported symptoms and physical exam findings, initial differential includes CVA/ICH, BPPV, labrynthitis, cardiac arrhythmia, electrolyte abnormality, anemia, UTI, hip contusion versus fracture. Records obtained from recent visit to [facility] for similar symptoms on 04/15/24. Per neuro consult note, after extensive workup including CTA h/n, diagnosed with BPPV, no stroke identified on imaging. Note states patient's symptoms not relieved with meclizine. Labs notable for chronic anemia, chronically elevated BUN, negative troponin x2. Urinalysis notable for 2+ leukocytes, positive nitrites, >50 WBCs, 4+ bacteria, will treat for UTI with cefuroxime. X-ray right hip notable for no evidence of fracture. CT head notable for no acute intracranial pathology. CT C-spine notable for no acute fracture or subluxation. My interpretation is in agreement with the radiologist's interpretation. Discussed with patient that symptoms could be due to her UTI but should still follow-up with her primary care provider. Return precautions discussed at bedside. Patient verbalized understanding of and agreement with plan. Differential Diagnosis Differential Diagnoses: The differential diagnosis associated with the presentation includes As per [facility]. Admission/Observation Consideration of admission/observation: Escalation of care including admission/observation considered Patient would have been admitted to the hospital had their work up had any findings where hospital admission was appropriate and their clinical presentation warranted hospital admission. Lab Data [facility] Lab Attestation statement: I reviewed the patient's lab results. as per [facility] 04/18/24 18:32 04/18/24 18:32 Labs: Lab Results 04/18/24 04/18/24 04/18/24 Range/Units 18:32 20:05 Unknown WBC 7.0 (4.8-10.8) X10*3/uL RBC 3.82 L (4.20-5.50) X10*6/uL Hgb 9.5 L (12.0-16.0) g/dl Hct 31.2 L (37.0-47.0) % MCV 81.7 (80.0-98.0) fL MCH 24.9 L (27.0-33.0) pg MCHC 30.4 L (31.0-35.0) g/dl RDW 15.8 (11.0-16.0) % Plt Count 369 D (160-400) X10*3/uL MPV 9.2 L (9.4-12.3) fL Immature Gran % (Auto) 0.4 (0.0-0.4) % Neut % (Auto) 69.9 (45-73) % Lymph % (Auto) 19.0 L (20-40) % [place] % (Auto) 8.3 (2-11) % Eos % (Auto) 2.0 (0-4) % Baso % (Auto) 0.4 (0-2) % Lymph # (Auto) 1.3 (1.2-4.9) X10*3/uL [place] # (Auto) 0.6 (0.1-1.2) X10*3/uL Eos # (Auto) 0.1 (0.0-0.4) X10*3/uL Baso # (Auto) 0.0 (0.0-0.2) X10*3/uL Abs Immat Gran (auto) 0.03 (0.00-0.03) X10*3/uL Absolute Neuts (auto) 4.9 (2.0-8.3) x10*3/uL Absolute Nucleated RBC 0.000 (0.0-0.012) X10*3/uL Nucleated RBC % (auto) 0.0 (0.0-0.2) /100WBC Sodium 144 (135-145) mmol/L Potassium 3.6 (3.3-5.1) mmol/L Chloride 109 H (96-108) mmol/L Carbon Dioxide 23 (22-29) mmol/L Anion Gap 16 (12-20) BUN 27 H (9-16) mg/dL Creatinine 1.25 (0.5-1.4) mg/dL Estim Creat Clear Calc 28.3 Estimated GFR 41 POC Glucose 115 (60-115) mg/dL Random Glucose 133 H (60-115) mg/dL Calcium 8.7 D (8.4-10.2) mg/dL Magnesium 1.9 (1.6-2.6) mg/dL Total Bilirubin 0.5 (0.0-1.0) mg/dL Direct Bilirubin 0.3 (0.0-0.5) mg/dL AST 17 (5-31) U/L ALT 7 (0-31) U/L Alkaline Phosphatase 104 (39-117) U/L Troponin I High Sens 7.5 D (<3.5-17.0) ng/L Total Protein 8.0 (6.5-8.0) g/dL Albumin 4.1 (3.5-5.0) g/dL Urine Color Yellow Urine Appearance Cloudy Urine pH 6.0 (5.0-9.0) Ur Specific [place] 1.015 (1.005-1.025) Urine Protein 30 (1+) H (Neg-Trace) mg/dL Urine Glucose (UA) 100 H (Negative) mg/dL Urine Ketones Negative (Negative) mg/dL Urine Blood Negative (Negative) Urine Nitrite Positive H (Negative) Ur Leukocyte Esterase Moderate (2+) H (Negative) Urine RBC 0-2 (0-2) /HPF Urine WBC >50 H (0-5) /HPF Ur Squamous Epith Cells 3-5 (0-2) /HPF Urine Bacteria 4+ (None Seen) Hyaline Casts 3-5 (0-2) /LPF 04/19/24 Range/Units 00:17 WBC (4.8-10.8) X10*3/uL RBC (4.20-5.50) X10*6/uL Hgb (12.0-16.0) g/dl Hct (37.0-47.0) % MCV (80.0-98.0) fL MCH (27.0-33.0) pg MCHC (31.0-35.0) g/dl RDW (11.0-16.0) % Plt Count (160-400) X10*3/uL MPV (9.4-12.3) fL Immature Gran % (Auto) (0.0-0.4) % Neut % (Auto) (45-73) % Lymph % (Auto) (20-40) % [place] % (Auto) (2-11) % Eos % (Auto) (0-4) % Baso % (Auto) (0-2) % Lymph # (Auto) (1.2-4.9) X10*3/uL [place] # (Auto) (0.1-1.2) X10*3/uL Eos # (Auto) (0.0-0.4) X10*3/uL Baso # (Auto) (0.0-0.2) X10*3/uL Abs Immat Gran (auto) (0.00-0.03) X10*3/uL Absolute Neuts (auto) (2.0-8.3) x10*3/uL Absolute Nucleated RBC (0.0-0.012) X10*3/uL Nucleated RBC % (auto) (0.0-0.2) /100WBC Sodium (135-145) mmol/L Potassium (3.3-5.1) mmol/L Chloride (96-108) mmol/L Carbon Dioxide (22-29) mmol/L Anion Gap (12-20) BUN (9-16) mg/dL Creatinine (0.5-1.4) mg/dL Estim Creat Clear Calc Estimated GFR POC Glucose (60-115) mg/dL Random Glucose (60-115) mg/dL Calcium (8.4-10.2) mg/dL Magnesium (1.6-2.6) mg/dL Total Bilirubin (0.0-1.0) mg/dL Direct Bilirubin (0.0-0.5) mg/dL AST (5-31) U/L ALT (0-31) U/L Alkaline Phosphatase (39-117) U/L Troponin I High Sens 9.0 (<3.5-17.0) ng/L Total Protein (6.5-8.0) g/dL Albumin (3.5-5.0) g/dL Urine Color Urine Appearance Urine pH (5.0-9.0) Ur Specific [place] (1.005-1.025) Urine Protein (Neg-Trace) mg/dL Urine Glucose (UA) (Negative) mg/dL Urine Ketones (Negative) mg/dL Urine Blood (Negative) Urine Nitrite (Negative) Ur Leukocyte Esterase (Negative) Urine RBC (0-2) /HPF Urine WBC (0-5) /HPF Ur Squamous Epith Cells (0-2) /HPF Urine Bacteria (None Seen) Hyaline Casts (0-2) /LPF Independent Interpretation I performed an independent interpretation of an: Plain X-Ray and CT Scan Interpretation: No evidence of fracture on right hip x-ray. CT head notable for no acute intracranial pathology. CT C-spine notable for no acute fracture or subluxation. Radiology Impression Discussion of test interpretation with radiology: I have reviewed the radiologist's reading. Radiologist Impression: XR/XR hip RT w PEL1V IMPRESSION: 1. No acute fracture or malalignment. 2. Mild osteoarthritis in the hips and SI joints. CT/CT cervical spine wo IV con IMPRESSION: 1. No acute intracranial pathology. 2. No acute fracture or malalignment in the cervical spine. 3. Multilevel degenerative spondylosis in the cervical spine with central canal stenosis at C3-C4 and multilevel neural foraminal encroachment. External Record Review External record reviewed: Inpatient record, Office record, Outpatient record, Prior outpatient radiology and Outside ED record Prescription Management I considered prescription management with: Antibiotic Discharge Plan Discharge Clinical Impression: Urinary tract infection Patient Disposition: Home, Self-Care Instructions: Urinary Tract Infection in Older Adults (ED) Additional Instructions: You were evaluated in the emergency department today for dizziness. Your urinalysis showed evidence of infection in you are being treated for a urinary tract infection with antibiotics. Please complete the full course as prescribed. Your x-rays did not show any evidence of fracture. The CT scan of your brain did not show any evidence of bleeding. We recommend that you follow-up with your primary care provider this week. Return to the emergency department if you develop increasing episodes of dizziness, chest pain, shortness of breath, confusion or any other concerning symptoms. Prescriptions: New cefuroxime axetil 500 mg tablet 500 mg PO BID Qty: 13 0RF No Action (DME) lancets [FreeStyle Lancets] 28 gauge misc See Rx Instructions .ROUTE .COMPLEX Qty: 100 0RF Dose Instruction: USE DIRECTED TO CHECK BLOOD SUGAR TWICE A DAY Rx Instructions: USE DIRECTED TO CHECK BLOOD SUGAR TWICE A DAY duloxetine 20 mg capsule,delayed release(DR/EC) 20 mg PO BID Qty: 180 0RF melatonin 5 mg tablet 10 mg PO BEDTIME Qty: 90 3RF tizanidine 4 mg capsule 8 mg PO BEDTIME Qty: 60 0RF polyethylene glycol 3350 [Miralax] 17 gram/dose powder 17 g PO DAILY Qty: 510 0RF diclofenac sodium [Arthritis Pain (diclofenac)] 1 % gel 4 g topical QID PRN (Reason: Pain) Rx Instructions: apply to single knee, ankle, foot; for foot includes sole/toes/top of foot magnesium hydroxide [Milk of Magnesia] 400 mg/5 mL Suspension 30 ml PO DAILY PRN (Reason: Constipation) docusate sodium 100 mg Capsule 200 mg PO BEDTIME furosemide 20 mg tablet 20 mg PO BEDTIME Hold Instructions: Resume on 04/07/24. carvedilol 6.25 mg tablet 3.125 mg PO BIDWM Qty: 60 0RF Rx Instructions: must administer with a meal/food aspirin 81 mg tablet,delayed release (DR/EC) 81 mg PO BEDTIME (DME) FreeStyle Lite Strips Strip See Rx Instructions .Route Qty: 100 6RF Rx Instructions: Test 3 times Daily clopidogrel 75 mg tablet 75 mg PO BEDTIME Patient Comments: till 07/2024 mirtazapine 15 mg tablet 15 mg PO BEDTIME rosuvastatin 10 mg tablet 10 mg PO BEDTIME insulin glargine [Lantus Solostar U-100 Insulin] 100 unit/mL (3 mL) insulin pen 20 unit subcut DAILY Print Language: Bengali
--- NOTE | 2024-04-18 20:40 | MHC.EDTECH ---
This tech took over care of patient at 1900,hourly rounds and vitals completed
--- NOTE | 2024-04-18 21:53 | MHC.EDTECH ---
Hourly rounds and vitals completed,patient is resting,call carreon in reach
[2024-04-18] MEDS: cefuroxime axetiL 500 MG TABLET PO (23:49)
[2024-04-19 00:21] VITALS: BP 141/72; PULSE 82; RESP 15; TEMP 36.8; O2SAT 95
[2024-04-19 01:26] VITALS: BP 141/72; PULSE 82; RESP 15; TEMP 36.8; O2SAT 95
--- NOTE | 2024-04-19 01:44 | PC.NURSE ---
pt normally ambulates with walker and states that she at this time cannot rely on family for a ride home at this time . Let charge know .Pt discharged, Changed, IV pulled, and food given while pt was relocated to [facility] awaiting available ride home
== END 2024-04-19 06:08 | disposition home or self-care (01) ==
PROVIDERS: Physician Assistant; Registered Nurse Emergency; Emergency Provider Emergency Medicine
DX: N39.0 Urinary tract infection, site not specified (principal); B96.20 Unspecified Escherichia coli [E. coli] as the cause of diseases classified elsewhere; R42 Dizziness and giddiness; E11.9 Type 2 diabetes mellitus without complications; I10 Essential (primary) hypertension; E78.00 Pure hypercholesterolemia, unspecified; R29.700 NIHSS score 0; Z79.4 Long term (current) use of insulin; Z79.02 Long term (current) use of antithrombotics/antiplatelets; Z79.899 Other long term (current) drug therapy; Z86.711 Personal history of pulmonary embolism
CPT/HCPCS: 36415; 70450; 72125; 73502; 80048; 80076; 81001; 82947; 83735; 84484; 85025; 87086; 87088; 87186; 93005; 99285

== ENCOUNTER → 2024-04-18 17:31 | Outpatient (BNV) | payer OTHER, SELFPAY | PROVIDERS: Emergency Provider Emergency Medicine; Visit Provider Internal Medicine | DX: I44.0 Atrioventricular block, first degree (principal); I44.7 Left bundle-branch block, unspecified | CPT/HCPCS: 93010 ==

== ENCOUNTER 2024-04-21 12:31 | Outpatient (AMB) | payer OTHER, SELFPAY ==
[2024-04-21 12:32] VITALS: BP 140/82; PULSE 80; O2SAT 99; BMI 27.0
--- NOTE | 2024-04-21 12:32 | MHC.PC.OV ---
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 Allergies levofloxacin [From LEVAQUIN] Allergy (Intermediate, Verified 04/21/24 12:33) RASH eszopiclone [From LUNESTA] Allergy (Mild, Verified 04/21/24 12:33) HALLUCINATIONS zolpidem [Ambien] Allergy (Unknown, Verified 04/21/24 12:33) sleep walking meperidine [Meperidine] Adverse Reaction (Intermediate, Verified 04/21/24 12:33) hallucinations pregabalin [From LYRICA] Adverse Reaction (Unknown, Verified 04/21/24 12:33) AGITATION trazodone [TRAZODONE] Adverse Reaction (Unknown, Verified 04/21/24 12:33) AGITATION Medication List - Last Reconciled 04/21/24 by Jocelyn Hickey MD aspirin 81 mg PO BEDTIME blood sugar diagnostic (FreeStyle Lite Strips) Test 3 times Daily carvedilol 3.125 mg (1/2 x 6.25 mg) PO BIDWM cefuroxime axetil 500 mg PO BID clopidogrel 75 mg PO BEDTIME diclofenac sodium 1% (Arthritis Pain (diclofenac)) 4 grams topical QID PRN duloxetine 20 mg PO BID furosemide 20 mg PO BEDTIME insulin glargine (Lantus Solostar U-100 Insulin) 20 units subcut DAILY lancets (FreeStyle Lancets) USE DIRECTED TO CHECK BLOOD SUGAR TWICE A DAY magnesium hydroxide (Milk of Magnesia) 30 mL PO DAILY PRN melatonin 10 mg (2 x 5 mg) PO BEDTIME mirtazapine 15 mg PO BEDTIME polyethylene glycol 3350 (Miralax) 17 grams PO DAILY psyllium husk (Metamucil) 1 tbsp PO BID rosuvastatin 10 mg PO BEDTIME tizanidine 8 mg (2 x 4 mg) PO BEDTIME Tobacco use date assessed: 04/21/24 Fall risk assessment: 2 + Falls in past year Last assessed Fall Risk: 04/21/24 Dental Screening Dental Screen Date: 03/26/24 Did you have a dental visit in the last 12 months?: No Did you have a dental problem in the last 6 months where you did not have access to dental care?: No HPI [facility] [place] HPI Details 84-year-old female with multiple medical problems coronary artery disease with cardiomyopathy diabetes mellitus hypertension hypercholesterolemia history of TIA and pulmonary embolism coming in for follow-up. Patient has been dizzy. Patient was last seen in 03/26/2024. Reviewed notes April 18 ER visit for dizziness has had of after the will got stuck her walker patient also has constipation. Found to have urinary tract infection and was treated with cefuroxime 500 mg twice a day. complains nystagmus, dry heaves, complains of R ear buzzing. BP at home is good TCM TCM Information Date of Discharge 04/18/24 Discharged From [facility] Medical History (Updated 04/21/24 @ 12:49 by Jocelyn Hickey MD) Hypercholesterolemia Coronary artery disease Cardiomyopathy Acute renal failure Fecal impaction TIA (transient ischemic attack) Fracture, ribs Obesity Type 2 diabetes mellitus with obesity Pneumonia Type 2 diabetes mellitus with hyperglycemia Pulmonary embolism Congestive heart failure Surgical History History of surgery on lower extremity H/O prior ablation treatment History of cervical spinal surgery History of hysterectomy Family History Father Diabetes CVD (cardiovascular disease) Mother No problems noted. Social History Household Members: None Housing: Apartment Do you presently have visiting nurse or other home services: No Alcohol intake: former Patient Tobacco Use Status: Former Tobacco user Tobacco use type: Cigarette e-Cigarette/Vaping Use: Never Used Second Hand Smoke Exposure: No Advance Directives Date on File: 01/27/21 service: No Current occupational status: retired Current occupational exposures/hazards: No Cognitive needs: Yes (walker/cane) Hearing needs: No Vision needs: Yes (glasses) Questionnaire Thrive Questionnaire Date Thrive assessed: 04/05/24 AUDIT C Alcohol Use Questionnaire (AUDIT-C) 1. How often do you have a drink containing alcohol?: Never 3. How often do you have six or more drinks on one occasion?: Never Total Score: 0 Score Reviewed/Action Taken: Yes MARCELLA-7 AMB Questionnaire MARCELLA-7 Date MARCELLA - 7 assessed: 03/26/24 Source: Developed by DrsHernan Hi, Yoselin Shahid, Brody Garcia and colleagues, with an educational trista from [employer]. Physical exam (Primary Care) Vital Signs: Last Vital Signs Pulse 80 04/21/24 12:32 BP 140/82 H 04/21/24 12:32 Pulse Ox 99 04/21/24 12:32 Oxygen Delivery Method Room Air 04/21/24 12:32 BMI result Body Mass Index 27.0 Tobacco/Smoking Status: Tobacco use Status Tobacco use date assessed 04/21/24 04/21/24 12:33 Patient Tobacco Use Status Former Tobacco user 04/21/24 12:33 Tobacco use type Cigarette 04/21/24 12:33 e-Cigarette/Vaping Use Never Used 04/21/24 12:33 Thrive Assessment: Date of Thrive Assessment Date Thrive assessed 04/05/24 04/21/24 12:33 Const General: alert; No acute distress Eyes Conjunctivae: conjunctivae normal Resp Auscultation: clear to auscultation bilaterally Cardio Rate: regular rate Rhythm: regular rhythm GI Inspection: Yes normal to inspection Extrem General: Yes normal to inspection and No edema Results AMB Hemoglobin A1c AMB Hemoglobin A1c 8.3 % Last Edit by YANIV Crain on 04/21/24 12:44 Results Reviewed Results Reviewed: Laboratory Last Values Hgb A1c (Clinic) 8.3 % (4.0-6.0) H 04/21/24 10:20 Assessment and Plan Assessment & Plan (1) Anemia: Code(s): D64.9 - Anemia, unspecified Plan: Noted to have a low hemoglobin and hematocrit advised to get the blood work that I requested (2) Type 2 diabetes mellitus with hyperglycemia: Code(s): E11.65 - Type 2 diabetes mellitus with hyperglycemia Plan: Decrease the amount of carbohydrate intake, pasta, bread, rice and potatoes are all sugar and that is aside from all the sweet stuff, remember that fruits are good but they are Sweet also. On insulin Lantus 20 units discussed that the hemoglobin A1c is elevated but denies any hypoglycemic episodes (3) Hypertension: Code(s): I10 - Essential (primary) hypertension Plan: Continue with blood pressure medication. Decrease salt intake and exercise taking carvedilol 3.125 mg twice a day (4) Coronary artery disease: Code(s): I25.10 - Atherosclerotic heart disease of [place] coronary artery without angina pectoris Qualifiers: Associated angina: unspecified whether angina present Coronary Disease-Associated Artery/Lesion type: unspecified vessel or lesion type [place] vs. transplanted heart: unspecified whether [place] or transplanted heart Qualified Code(s): I25.10 - Atherosclerotic heart disease of [place] coronary artery without angina pectoris Plan: Control the cholesterol, weight, blood pressure, diabetes continue with aspirin 81 mg once a day patient also on clopidogrel (5) Hypercholesterolemia: Code(s): E78.00 - Pure hypercholesterolemia, unspecified Plan: Avoid fried foods, chicken skin, eggs, butter margarine, pastries and meat. Be it pork or beef they have a lot of cholesterol on rosuvastatin 10 mg once a day (6) Cardiomyopathy: Comment: 40-50% ejection fraction March 2023 Code(s): I42.9 - Cardiomyopathy, unspecified Qualifiers: Cardiomyopathy type: unspecified Qualified Code(s): I42.9 - Cardiomyopathy, unspecified Plan: Low-sodium diet, get blood sugars under control keep blood pressure under control (7) UTI (urinary tract infection): Code(s): N39.0 - Urinary tract infection, site not specified Plan: Patient was treated with cefuroxime. Advised to get the urinalysis after the antibiotic is finished (8) Vertigo: Code(s): R42 - Dizziness and giddiness Plan: Patient is sent for physical therapy to do the Gabriela maneuver (9) Tinnitus: Code(s): H93.19 - Tinnitus, unspecified ear Plan: Hearing test requested (10) Constipation: Code(s): K59.00 - Constipation, unspecified Qualifiers: Constipation type: slow transit constipation Qualified Code(s): K59.01 - Slow transit constipation Plan: Three rules for constipation 1. Diet need to have a high fiber diet less of meat 2. Increase oral fluids 3. Exercise sent in psyllium to help regulate. Orders: Orders AMB Hemoglobin A1c Today E11.65 - Type 2 diabetes mellitus with hyperglycemia Ferritin Today D64.9 - Anemia, unspecified Vitamin B12 and Folate Today D64.9 - Anemia, unspecified PT Evaluation and Treatment Today R42 - Dizziness and giddiness IRON PROFILE Today D64.9 - Anemia, unspecified Reticulocyte Count Today D64.9 - Anemia, unspecified UA CC w/rflx Micro + Cult Today N39.0 - Urinary tract infection, site not specified, R30.0 - Dysuria Referrals Speech and Hearing Referral H93.19 - Tinnitus, unspecified ear Medications: New psyllium husk (Metamucil) mix into at least 8 oz of water or juice before administering 1 tbsp PO BID 660 grams 0RF K59.01 - Slow transit constipation Coding Level of Care Code Est Pt Level 4 (75831) Complex EM visit Add On G2211 Diagnoses Anemia D64.9 Type 2 diabetes mellitus with hyperglycemia E11.65 Hypertension I10 Coronary artery disease, unspecified vessel or lesion type, unspecified whether angina present, unspecified whether [place] or transplanted heart I25.10 Associated angina: unspecified whether angina present Coronary Disease-Associated Artery/Lesion type: unspecified vessel or lesion type [place] vs. transplanted heart: unspecified whether [place] or transplanted heart Hypercholesterolemia E78.00 Cardiomyopathy, unspecified type I42.9 Cardiomyopathy type: unspecified UTI (urinary tract infection) N39.0 Vertigo R42 Tinnitus H93.19 Slow transit constipation K59.01 Constipation type: slow transit constipation
== END 2024-04-21 13:06 | disposition home or self-care (01) ==
PROVIDERS: Visit Provider Internal Medicine
DX: E11.65 Type 2 diabetes mellitus with hyperglycemia (principal); I42.9 Cardiomyopathy, unspecified; D64.9 Anemia, unspecified; I10 Essential (primary) hypertension; I25.10 Atherosclerotic heart disease of native coronary artery without angina pectoris; E78.00 Pure hypercholesterolemia, unspecified; N39.0 Urinary tract infection, site not specified; R42 Dizziness and giddiness; H93.19 Tinnitus, unspecified ear; K59.01 Slow transit constipation
CPT/HCPCS: 83036; 99214; G2211